=== PATIENT | male | born 1945 | race African-American/Black ===

== ENCOUNTER 2019-09-08 17:51 | Inpatient (IN) | payer OTHER ==
[~2019-09-08] VITALS: Ht 182.9 cm; Wt 100.7 kg
[2019-09-08 17:53] VITALS: BP 141/89
[2019-09-08] MEDS ORDERED: Acetaminophen 650 MG SUPP RECTAL ONE (18:15)
[2019-09-08 18:23] LABS: BASOPHILS % (AUTO) 0.8 % (0.0-2.0); HEMATOCRIT 48.1 % (42.0-52.0); HEMOGLOBIN 15.4 G/DL (14.2-18.0); LYMPHOCYTES % (AUTO) 8.6 % (20.0-45.0); MEAN CORPUSCULAR VOLUME 102 FL (80-99); MONOCYTES % (AUTO) 11.8 % (1.0-10.0); NEUTROPHILS % (AUTO) 78.8 % (45.0-75.0); PLATELET COUNT 207 K/UL (150-450); RED BLOOD COUNT 4.74 M/UL (4.70-6.10); RED CELL DISTRIBUTION WIDTH 11.8 % (11.6-14.8); WHITE BLOOD COUNT 12.3 K/UL (4.8-10.8)
[2019-09-08 18:30] LABS: ANION GAP 17 mmol/L (5-15); BLOOD UREA NITROGEN 52 mg/dL (7-18); CALCIUM 9.6 MG/DL (8.5-10.1); CARBON DIOXIDE 21 MMOL/L (21-32); CHLORIDE 109 MMOL/L (98-107); CREATININE 3.8 MG/DL (0.55-1.30); POTASSIUM 4.1 MMOL/L (3.5-5.1); SODIUM 147 MMOL/L (136-145)
[2019-09-08 18:31] LABS: INR 1.2 (0.9-1.1); PARTIAL THROMBOPLASTIN TIME 26 SEC (23-33)
[2019-09-08 18:43] LABS: ALANINE AMINOTRANSFERASE 72 U/L (12-78); ALBUMIN 4.3 G/DL (3.4-5.0); ALKALINE PHOSPHATASE 87 U/L (46-116); ASPARTATE AMINO TRANSFERASE 64 U/L (15-37); BILIRUBIN,TOTAL 1.7 MG/DL (0.2-1.0)
[2019-09-08 18:44] LABS: BILIRUBIN,DIRECT 0.3 MG/DL (0.0-0.3)
[2019-09-08 19:09] LABS: APPEARANCE,URINE VERY CLOUDY; BILIRUBIN, URINE NEGATIVE (NEGATIVE); GLUCOSE, URINE (UA) 1+ (NEGATIVE); KETONES,URINE 1+ (NEGATIVE); LEUKOCYTE ESTERASE ,URINE 3+ (NEGATIVE); NITRITE,URINE NEGATIVE (NEGATIVE); PH,URINE 5 (4.5-8.0); PROTEIN,URINE 3+ (NEGATIVE); UROBILINOGEN,URINE 1 MG/DL (0.0-1.0)
[2019-09-08 19:22] LABS: COLOR,URINE YELLOW
[2019-09-08] MEDS ORDERED: Sodium Chloride 3,300 ML IVLG ONE (19:30)
[2019-09-08] MEDS ORDERED: Heparin 5000 units/ml inj IV ONE (19:45)
[2019-09-08] MEDS ORDERED: Heparin 25,000u/D5W 500ml 500 ML IV SCH (19:45)
[2019-09-08 20:00] VITALS: BP 124/105
[2019-09-08] MEDS ORDERED: dexAMETHasone 10mg/ml Inj IV ONE (20:00)
--- NOTE | 2019-09-08 21:34 | Emergency Room Report ---
History of Present Illness General Chief Complaint: Fever Source: EMS Present Illness HPI 74-year-old male brought to ED for evaluation. Per EMS patient found altered since this morning. Febrile. Placed on oxygen. Last known patient unable to provide any additional history at this time. No signs of distress. No other aggravating relieving factors. 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: No Patient History Past Medical History: DM, HTN, CVA/TIA Pertinent Family History: none Social History: Denies: smoking, alcohol use, drug use Immunizations: UTD Reviewed Nursing Documentation: PMH: Agreed; PSxH: Agreed Nursing Documentation-PMH Past Medical History: No History, Except For Hx Hypertension: Yes Hx Diabetes: Yes Hx Cerebrovascular Accident: Yes Review of Systems All Other Systems: limited Physical Exam Vital Signs Date Time Temp Pulse Resp B/P (MAP) Pulse Ox O2 Delivery O2 Flow Rate FiO2 09/08/19 17:41 101.5 123 16 141/89 (106) 92 Room Air 09/08/19 17:53 15.0 Sp02 EP Interpretation: reviewed, normal General Appearance: no apparent distress, GCS 15, non-toxic, lethargic Head: normocephalic Eyes: bilateral eye normal inspection, bilateral eye PERRL ENT: normal ENT inspection Neck: normal inspection Respiratory: chest non-tender, lungs clear, normal breath sounds, speaking full sentences Cardiovascular #1: tachycardia Gastrointestinal: normal bowel sounds, non tender, soft, non-distended, no guarding, no rebound Rectal: deferred Genitourinary: no CVA tenderness Musculoskeletal: normal inspection Neurologic: other - AMS Psychiatric: other - AMS Skin: other - see nrusing notes Lymphatic: normal inspection Procedures Critical Care Time Critical Care Time i. I feel this is a highly complex case requiring extensive working including EKG/Rhythm strip, Xray/CT/US, Blood/urine lab work, repeat exams while in ED, and administration of strong opiates/narcotics for pain control, admission to hospital or close patient follow up. Total time: 60 min bedside evaluation and treatment excludes procedures (EKG). Reason for critical care: ALOC, sepsis, dehydration, elevated D-dimer Possible complications: hypotension, hypertension, DC, shock, arrhythmias, metabolic acidosis, end organ damage, respiratory failure. Interventions: Labs, EKG, chest x-ray, rectal Tylenol, IV fluids, Decadron, heparin, broad-spectrum antibiotics Course: Patient presenting with fever, altered. Urine positive for UTI. BUN/ creatinine elevated. Lactic 2.5. Sodium 147. D-dimer markedly elevated. Concern for COVID. COVID swab sent. Given Decadron. Given 30 cc/kg fluid bolus. Given heparin. Given broad-spectrum antibiotics Consultations: nursing staff, EMS, family Performed by: Dr Pagan Tolerated well condition = serious j. because of unstable vital signs this patient had a condition that could potentially threaten life or limb. I feel this is a critical patient who required my full attention while patient was considered critical. Total Critical Care Time excluding procedures was greater than 60 minutes Medical Decision Making Diagnostic Impression: Primary Impression: Fever Qualified Codes: R50.9 - Fever, unspecified Additional Impressions: Dehydration Renal failure Qualified Codes: N17.9 - Acute kidney failure, unspecified Sepsis Qualified Codes: A41.9 - Sepsis, unspecified organism UTI (urinary tract infection) Qualified Codes: N39.0 - Urinary tract infection, site not specified Suspected 2019 novel coronavirus infection ER Course Hospital Course 74 yo M presents with increased lethargy, fever Differential diagnoses include: Pneumonia, UTI, sepsis, dehydration, DC/ unstable angina Clinical course Patient placed on stretcher. in isolation. i wore full PPE. On residential monitor with tachycardia. After initial history and physical, I ordered labs, IV fluids , EKG, chest x-ray, blood cultures, UA. given rectal tylenol Labs - Na 147, BUN/Cr markedly elevated, noted leukocytosis, ESR elevated, d- dimer elevated, lactic 2.5, UA grossly positive for UTI CXR - no acute process EKG - sinus tachycardia no acute ischemic changes interpreted by me Abx given. 30 cc/kg fluid bolus. Inflammatory markers elevated concerning for COVID. COVID swab sent. Given Decadron. Given heparin. Case discussed with Dr Warner and they agreed to admit patient to their service for further care and support I feel this is a highly complex case requiring extensive working including EKG/ Rhythm strip, Xray/CT/US, Blood/urine lab work, repeat exams while in ED, and administration of strong opiates/narcotics for pain control, admission to hospital or close patient follow up. Diagnosis -fever, dehydration, renal failure, sepsis, UTI, suspected COVID infection Patient admitted to telemetry in serious condition Labs Test 09/08/19 17:55 09/08/19 18:35 White Blood Count 12.3 K/UL (4.8-10.8) Red Blood Count 4.74 M/UL (4.70-6.10) Hemoglobin 15.4 G/DL (14.2-18.0) Hematocrit 48.1 % (42.0-52.0) Mean Corpuscular Volume 102 FL (80-99) Mean Corpuscular Hemoglobin 32.5 PG (27.0-31.0) Mean Corpuscular Hemoglobin Concent 32.0 G/DL (32.0-36.0) Red Cell Distribution Width 11.8 % (11.6-14.8) Platelet Count 207 K/UL (150-450) Mean Platelet Volume 7.0 FL (6.5-10.1) Neutrophils (%) (Auto) 78.8 % (45.0-75.0) Lymphocytes (%) (Auto) 8.6 % (20.0-45.0) Monocytes (%) (Auto) 11.8 % (1.0-10.0) Eosinophils (%) (Auto) 0.0 % (0.0-3.0) Basophils (%) (Auto) 0.8 % (0.0-2.0) Erythrocyte Sedimentation Rate 75 MM/HR (0-20) Prothrombin Time 13.5 SEC (9.30-11.50) Prothromb Time International Ratio 1.2 (0.9-1.1) Activated Partial Thromboplast Time 26 SEC (23-33) D-Dimer > 35.20 mg/L FEU Sodium Level 147 MMOL/L (136-145) Potassium Level 4.1 MMOL/L (3.5-5.1) Chloride Level 109 MMOL/L (98-107) Carbon Dioxide Level 21 MMOL/L (21-32) Anion Gap 17 mmol/L (5-15) Blood Urea Nitrogen 52 mg/dL (7-18) Creatinine 3.8 MG/DL (0.55-1.30) Estimat Glomerular Filtration Rate 15.6 mL/min (>60) Glucose Level 310 MG/DL (74-106) Lactic Acid Level 2.50 mmol/L (0.4-2.0) Calcium Level 9.6 MG/DL (8.5-10.1) Total Bilirubin 1.7 MG/DL (0.2-1.0) Direct Bilirubin 0.3 MG/DL (0.0-0.3) Aspartate Amino Transf (AST/SGOT) 64 U/L (15-37) Alanine Aminotransferase (ALT/SGPT) 72 U/L (12-78) Alkaline Phosphatase 87 U/L (46-116) C-Reactive Protein, Quantitative 0.9 mg/dL (0.00-0.90) Pro-B-Type Natriuretic Peptide 482 pg/mL (0-125) Total Protein 8.8 G/DL (6.4-8.2) Albumin 4.3 G/DL (3.4-5.0) Globulin 4.5 g/dL Albumin/Globulin Ratio 1.0 (1.0-2.7) Urine Color Yellow Urine Appearance Very cloudy Urine pH 5 (4.5-8.0) Urine Specific [place] 1.025 (1.005-1.035) Urine Protein 3+ (NEGATIVE) Urine Glucose (UA) 1+ (NEGATIVE) Urine Ketones 1+ (NEGATIVE) Urine Blood 5+ (NEGATIVE) Urine Nitrite Negative (NEGATIVE) Urine Bilirubin Negative (NEGATIVE) Urine Urobilinogen 1 MG/DL (0.0-1.0) Urine Leukocyte Esterase 3+ (NEGATIVE) Urine RBC 5-10 /HPF (0 - 0) Urine WBC Tntc /HPF (0 - 0) Urine Squamous Epithelial Cells Occasional /LPF Urine Bacteria Many /HPF (NONE) EKG Diagnostic Results Rate: tachycardiac Rhythm: NSR ST Segments: no acute changes ASA given to the pt in ED: No Rhythm Strip Diag. Results EP Interpretation: yes Rhythm: NSR, no PVC's, no ectopy Chest X-Ray Diagnostic Results Chest X-Ray Diagnostic Results : Chest X-Ray Ordered: Yes # of Views/Limited/Complete: 1 View Indication: Other EP Interpretation: Yes Interpretation: no consolidation, no effusion, no pneumothorax, no acute cardiopulmonary disease Impression: No acute disease Electronically Signed by: Electronically signed by Josh Pagan MD Last Vital Signs Date Time Temp Pulse Resp B/P (MAP) Pulse Ox O2 Delivery O2 Flow Rate FiO2 09/08/19 17:53 123 16 Room Air 09/08/19 17:53 101.5 141/89 99 15.0 Status: improved Disposition: ADMITTED INPATIENT Condition: Serious Scripts Unable to Obtain Active Prescriptions or Reported Meds Referrals: NOT CHOSEN IPA/,REFERRING (PCP) Josh Pagan MD Sep 08, 2019 21:34
[2019-09-08 21:45] VITALS: BP 120/61
[2019-09-09] VITALS: BP 127/77
[2019-09-09] MEDS: cefTRIAXone 1 GM in D5W 55 ML IVPB SCH ×2 (00:31→23:03)
[2019-09-09 04:00] VITALS: BP 138/75
[2019-09-09 07:12] LABS: HEMATOCRIT 44.7 % (42.0-52.0); HEMOGLOBIN 14.5 G/DL (14.2-18.0); MEAN CORPUSCULAR VOLUME 102 FL (80-99); PLATELET COUNT 183 K/UL (150-450); RED BLOOD COUNT 4.38 M/UL (4.70-6.10); RED CELL DISTRIBUTION WIDTH 11.1 % (11.6-14.8)
[2019-09-09 07:29] LABS: ALANINE AMINOTRANSFERASE 59 U/L (12-78); ALBUMIN 3.1 G/DL (3.4-5.0); ALBUMIN/GLOBULIN RATIO 0.7 (1.0-2.7); ALKALINE PHOSPHATASE 73 U/L (46-116); ANION GAP 14 mmol/L (5-15); ASPARTATE AMINO TRANSFERASE 56 U/L (15-37); BILIRUBIN,TOTAL 1.5 MG/DL (0.2-1.0); BLOOD UREA NITROGEN 43 mg/dL (7-18); CALCIUM 8.6 MG/DL (8.5-10.1); CARBON DIOXIDE 19 MMOL/L (21-32); CHLORIDE 110 MMOL/L (98-107); CREATININE 2.8 MG/DL (0.55-1.30); POTASSIUM 4.8 MMOL/L (3.5-5.1); SODIUM 143 MMOL/L (136-145)
--- NOTE | 2019-09-09 07:58 | Consultation ---
History of Present Illness General Chief Complaint: Fever Present Illness Allergies: Coded Allergies: No Known Allergies (Unverified , 09/08/19) Medication History Unable to Obtain Active Prescriptions or Reported Meds Patient History Healthcare decision maker Resuscitation status Advanced Directive on File Physical Exam Last 24 Hour Vital Signs Date Time Temp Pulse Resp B/P (MAP) Pulse Ox O2 Delivery O2 Flow Rate FiO2 09/09/19 04:00 83 09/09/19 04:00 97.7 75 20 138/75 (96) 98 09/09/19 01:58 Nasal Cannula 3.0 09/09/19 00:00 97.8 89 18 127/77 (94) 98 09/09/19 00:00 104 09/09/19 00:00 104 09/08/19 22:38 98.0 106 20 120/61 100 Nasal Cannula 3.0 09/08/19 21:45 98.0 111 20 120/61 100 Nasal Cannula 3.0 09/08/19 20:00 99.1 118 20 124/105 100 Non-Rebreather 10.0 09/08/19 17:53 123 16 Room Air 09/08/19 17:53 101.5 123 16 141/89 99 Non-Rebreather 15.0 09/08/19 17:41 101.5 123 16 141/89 (106) 92 Room Air Intake and Output 09/08/19 09/09/19 19:00 07:00 Output Total 0 ml 900 ml Balance 0 ml -900 ml Output Urine Total 0 ml 900 ml Laboratory Tests Test 09/08/19 17:55 09/08/19 18:35 09/08/19 21:50 09/09/19 06:24 White Blood Count 12.3 K/UL (4.8-10.8) H 15.0 K/UL (4.8-10.8) H Red Blood Count 4.74 M/UL (4.70-6.10) 4.38 M/UL (4.70-6.10) L Hemoglobin 15.4 G/DL (14.2-18.0) 14.5 G/DL (14.2-18.0) Hematocrit 48.1 % (42.0-52.0) 44.7 % (42.0-52.0) Mean Corpuscular Volume 102 FL (80-99) H 102 FL (80-99) H Mean Corpuscular Hemoglobin 32.5 PG (27.0-31.0) H 33.1 PG (27.0-31.0) H Mean Corpuscular Hemoglobin Concent 32.0 G/DL (32.0-36.0) 32.4 G/DL (32.0-36.0) Red Cell Distribution Width 11.8 % (11.6-14.8) 11.1 % (11.6-14.8) L Platelet Count 207 K/UL (150-450) 183 K/UL (150-450) Mean Platelet Volume 7.0 FL (6.5-10.1) 6.1 FL (6.5-10.1) L Neutrophils (%) (Auto) 78.8 % (45.0-75.0) H % (45.0-75.0) Lymphocytes (%) (Auto) 8.6 % (20.0-45.0) L % (20.0-45.0) Monocytes (%) (Auto) 11.8 % (1.0-10.0) H % (1.0-10.0) Eosinophils (%) (Auto) 0.0 % (0.0-3.0) % (0.0-3.0) Basophils (%) (Auto) 0.8 % (0.0-2.0) % (0.0-2.0) Erythrocyte Sedimentation Rate 75 MM/HR (0-20) H Prothrombin Time 13.5 SEC (9.30-11.50) H Prothromb Time International Ratio 1.2 (0.9-1.1) H Activated Partial Thromboplast Time 26 SEC (23-33) D-Dimer > 35.20 mg/L FEU Sodium Level 147 MMOL/L (136-145) H 143 MMOL/L (136-145) Potassium Level 4.1 MMOL/L (3.5-5.1) 4.8 MMOL/L (3.5-5.1) Chloride Level 109 MMOL/L (98-107) H 110 MMOL/L (98-107) H Carbon Dioxide Level 21 MMOL/L (21-32) 19 MMOL/L (21-32) L Anion Gap 17 mmol/L (5-15) H 14 mmol/L (5-15) Blood Urea Nitrogen 52 mg/dL (7-18) H 43 mg/dL (7-18) H Creatinine 3.8 MG/DL (0.55-1.30) H 2.8 MG/DL (0.55-1.30) H Estimat Glomerular Filtration Rate 15.6 mL/min (>60) 26.8 mL/min (>60) Glucose Level 310 MG/DL (74-106) H 326 MG/DL (74-106) H Lactic Acid Level 2.50 mmol/L (0.4-2.0) H 1.70 mmol/L (0.66-2.22) Calcium Level 9.6 MG/DL (8.5-10.1) 8.6 MG/DL (8.5-10.1) Total Bilirubin 1.7 MG/DL (0.2-1.0) H 1.5 MG/DL (0.2-1.0) H Direct Bilirubin 0.3 MG/DL (0.0-0.3) Pending Aspartate Amino Transf (AST/SGOT) 64 U/L (15-37) H 56 U/L (15-37) H Alanine Aminotransferase (ALT/SGPT) 72 U/L (12-78) 59 U/L (12-78) Alkaline Phosphatase 87 U/L (46-116) 73 U/L (46-116) C-Reactive Protein, Quantitative 0.9 mg/dL (0.00-0.90) Pending Pro-B-Type Natriuretic Peptide 482 pg/mL (0-125) H Pending Total Protein 8.8 G/DL (6.4-8.2) H 7.4 G/DL (6.4-8.2) Albumin 4.3 G/DL (3.4-5.0) 3.1 G/DL (3.4-5.0) L Globulin 4.5 g/dL 4.3 g/dL Albumin/Globulin Ratio 1.0 (1.0-2.7) 0.7 (1.0-2.7) L Urine Color Yellow Urine Appearance Very cloudy Urine pH 5 (4.5-8.0) Urine Specific [place] 1.025 (1.005-1.035) Urine Protein 3+ (NEGATIVE) H Urine Glucose (UA) 1+ (NEGATIVE) H Urine Ketones 1+ (NEGATIVE) H Urine Blood 5+ (NEGATIVE) H Urine Nitrite Negative (NEGATIVE) Urine Bilirubin Negative (NEGATIVE) Urine Urobilinogen 1 MG/DL (0.0-1.0) H Urine Leukocyte Esterase 3+ (NEGATIVE) H Urine RBC 5-10 /HPF (0 - 0) H Urine WBC Tntc /HPF (0 - 0) H Urine Squamous Epithelial Cells Occasional /LPF Urine Bacteria Many /HPF (NONE) H Neutrophils % (Manual) Pending Lymphocytes % (Manual) Pending Platelet Estimate Pending Platelet Morphology Pending Hemoglobin A1c Pending Uric Acid Pending Phosphorus Level Pending Magnesium Level Pending Gamma Glutamyl Transpeptidase Pending Total Creatine Kinase Pending Thyroid Stimulating Hormone (TSH) Pending Height (Feet): 6 Height (Inches): 0.00 Weight (Pounds): 210 Medications Current Medications Medications (Trade) Dose Ordered Sig/Karyna Route PRN Reason Start Time Stop Time Status Last Admin Dose Admin Acetaminophen (Tylenol) 500 mg Q4H PRN ORAL Mild Pain (Pain Scale 1-3) 09/09/19 02:00 10/09/19 01:59 Ceftriaxone Sodium 1 gm/ Dextrose 55 ml @ 110 mls/hr Q24H IVPB 09/08/19 23:00 09/15/19 22:59 09/09/19 00:31 Enoxaparin Sodium (Lovenox) 100 mg Q24H SUBQ 09/09/19 09:00 12/08/19 08:59 Assessment/Plan Assessment/Plan: Hematology Consultation REQ : Julia Yuan RFC: Leukocytosis eval DOS 09/09/2019 HPI 74-year-old male brought to ED for evaluation. Per EMS patient found altered since this morning. Febrile. Placed on oxygen. Last known patient unable to provide any additional history at this time. No signs of distress. No other aggravating relieving factors. No other associated symptoms. Wbc 12-->15, on abx now, ctx also started on levonex given that is with ese ddimer. 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: No Patient History Past Medical History: DM, HTN, CVA/TIA Pertinent Family History: none Social History: Denies: smoking, alcohol use, drug use Immunizations: UTD Reviewed Nursing Documentation: PMH: Agreed; PSxH: Agreed Nursing Documentation-PMH Past Medical History: No History, Except For Hx Hypertension: Yes Hx Diabetes: Yes Hx Cerebrovascular Accident: Yes Review of Systems All Other Systems: limited Physical Exam General: no apparent distress, GCS 15, non-toxic, lethargic HEENT: normal ENT inspection Neck: normal inspection Respiratory: chest non-tender, lungs clear, normal breath sounds, speaking full sentences Cardiovascular: tachycardia Gastrointestinal: normal bowel sounds, non tender Genitourinary: no CVA tenderness Musculoskeletal: normal inspection Neurologic: other - AMS Psychiatric: other - AMS Skin: other - see nrusing notes Lymphatic: normal inspection Labs reviewed Imaging: noted Assessment and Recs # Elevated didmer in the setting of ALOC, sepsis, r./o covid19 --> r/o underlying infection, imaging reviewed --> has been started initially on heparin gtt, now on lovenox sq --> duplex lower extremity ordered, wilian Stout --> pulm eval prn basis # Leukocytosis r/o underlying infection --> may also be elevated due to been given steriods # Dehydration --> goal of euvolemia --> ivfs started # UTI, Urine positive for UTI -> abx as per id # BUN/creatinine elevated. Lactic 2.5. # Hypernatremia with a Na 147, --> ivfs started Appreciate consultation and Lewis Blackwell RN, MD Sep 09, 2019 07:58
[2019-09-09 08:00] VITALS: BP 135/71
[2019-09-09 08:31] LABS: BILIRUBIN,DIRECT 0.2 MG/DL (0.0-0.3)
[2019-09-09] MEDS: Enoxaparin 100mg Inj SUBQ SCH (08:57)
--- NOTE | 2019-09-09 09:49 | Consultation ---
Consult Note Consult Note I am asked to evaluate the patient at the request of Dr. Warner for renal failure. Patient seen in room 217. Interviewed and examined. Unable to provide a meaningful history. Emergency room note: Chief Complaint: Fever Source: EMS 74-year-old male brought to ED for evaluation. Per EMS patient found altered since this morning. Febrile. Placed on oxygen. Last known patient unable to provide any additional history at this time. No signs of distress. No other aggravating relieving factors. No other associated symptoms Allergies: UNABLE TO ASSESS (Unverified , 09/08/19) no family avail COVID-19 Screening Contact w/high risk pt: No Experienced COVID-19 symptoms?: Yes COVID-19 Testing performed LIFE UNDERWRITER: No Past Medical History: DM, HTN, CVA/TIA Past Medical History: No History, Except For Hx Hypertension: Yes Hx Diabetes: Yes Hx Cerebrovascular Accident: Yes PHYSICAL EXAMINATION: VITAL SIGNS: Temperature is 97.7, pulse 74, blood pressure 135/75. GENERAL APPEARANCE: No acute distress, well developed. HEAD AND NECK: [place] conjunctiva. HEART: Normal rate. LUNGS: Clear. ABDOMEN: Soft. EXTREMITIES: No edema. GENITOURINARY: Has Carmen catheter. NEUROLOGIC: Awake, alert, oriented. Has left hemiparesis. Seems to have some memory problem and searching for words. He is slow to response. Assessment/Plan This 74-year-old male presented to emergency room with fever, leukocytosis, evidence of UTI/sepsis He has leukocytosis and increased d-dimer, suspected 2019 novel coronavirus infection Renal impression: Acute on chronic kidney disease Superimposed dehydration Underlying diabetic nephropathy Diabetes mellitus [id number] Slow IV hydration Monitor renal parameters Patient has a Carmen catheter Avoid nephrotoxic's N.p.o. until cleared with speech therapist Keep the blood pressure and blood sugar in check Per orders Discussed with Wild Mchugh MD Sep 09, 2019 09:49
[2019-09-09 09:53] LABS: CREATINE KINASE 628 U/L (26-308); GAMMA GLUTAMYL TRANSPEPTIDASE 20 U/L (5-85); PHOSPHORUS 1.6 MG/DL (2.5-4.9)
[2019-09-09] MEDS ORDERED: HydrALAZINE 25mg tab ORAL PRN (10:00)
[2019-09-09] MEDS ORDERED: Tamsulosin 0.4mg cap ORAL SCH (10:00)
[2019-09-09 12:00] VITALS: BP 130/64
[2019-09-09] MEDS: Aspirin Baby 81mg ORAL SCH (12:18)
[2019-09-09] MEDS: Docusate 100mg cap ORAL SCH ×2 (12:18→18:12)
--- NOTE | 2019-09-09 14:36 | Cardiac Electrophysiology PN ---
Subjective Subjective [id number] Objective Last 24 Hour Vital Signs Date Time Temp Pulse Resp B/P (MAP) Pulse Ox O2 Delivery O2 Flow Rate FiO2 09/09/19 08:00 97.7 74 18 135/71 (92) 100 09/09/19 04:00 83 09/09/19 04:00 97.7 75 20 138/75 (96) 98 09/09/19 01:58 Nasal Cannula 3.0 09/09/19 00:00 97.8 89 18 127/77 (94) 98 09/09/19 00:00 104 09/09/19 00:00 104 09/08/19 22:38 98.0 106 20 120/61 100 Nasal Cannula 3.0 09/08/19 21:45 98.0 111 20 120/61 100 Nasal Cannula 3.0 09/08/19 20:00 99.1 118 20 124/105 100 Non-Rebreather 10.0 09/08/19 17:53 123 16 Room Air 09/08/19 17:53 101.5 123 16 141/89 99 Non-Rebreather 15.0 09/08/19 17:41 101.5 123 16 141/89 (106) 92 Room Air Intake and Output 09/08/19 09/09/19 19:00 07:00 Output Total 0 ml 900 ml Balance 0 ml -900 ml Output Urine Total 0 ml 900 ml Laboratory Tests Test 09/08/19 17:55 09/08/19 18:35 09/08/19 21:50 09/09/19 06:24 White Blood Count 12.3 K/UL (4.8-10.8) H 15.0 K/UL (4.8-10.8) H Red Blood Count 4.74 M/UL (4.70-6.10) 4.38 M/UL (4.70-6.10) L Hemoglobin 15.4 G/DL (14.2-18.0) 14.5 G/DL (14.2-18.0) Hematocrit 48.1 % (42.0-52.0) 44.7 % (42.0-52.0) Mean Corpuscular Volume 102 FL (80-99) H 102 FL (80-99) H Mean Corpuscular Hemoglobin 32.5 PG (27.0-31.0) H 33.1 PG (27.0-31.0) H Mean Corpuscular Hemoglobin Concent 32.0 G/DL (32.0-36.0) 32.4 G/DL (32.0-36.0) Red Cell Distribution Width 11.8 % (11.6-14.8) 11.1 % (11.6-14.8) L Platelet Count 207 K/UL (150-450) 183 K/UL (150-450) Mean Platelet Volume 7.0 FL (6.5-10.1) 6.1 FL (6.5-10.1) L Neutrophils (%) (Auto) 78.8 % (45.0-75.0) H % (45.0-75.0) Lymphocytes (%) (Auto) 8.6 % (20.0-45.0) L % (20.0-45.0) Monocytes (%) (Auto) 11.8 % (1.0-10.0) H % (1.0-10.0) Eosinophils (%) (Auto) 0.0 % (0.0-3.0) % (0.0-3.0) Basophils (%) (Auto) 0.8 % (0.0-2.0) % (0.0-2.0) Erythrocyte Sedimentation Rate 75 MM/HR (0-20) H Prothrombin Time 13.5 SEC (9.30-11.50) H Prothromb Time International Ratio 1.2 (0.9-1.1) H Activated Partial Thromboplast Time 26 SEC (23-33) D-Dimer > 35.20 mg/L FEU Sodium Level 147 MMOL/L (136-145) H 143 MMOL/L (136-145) Potassium Level 4.1 MMOL/L (3.5-5.1) 4.8 MMOL/L (3.5-5.1) Chloride Level 109 MMOL/L (98-107) H 110 MMOL/L (98-107) H Carbon Dioxide Level 21 MMOL/L (21-32) 19 MMOL/L (21-32) L Anion Gap 17 mmol/L (5-15) H 14 mmol/L (5-15) Blood Urea Nitrogen 52 mg/dL (7-18) H 43 mg/dL (7-18) H Creatinine 3.8 MG/DL (0.55-1.30) H 2.8 MG/DL (0.55-1.30) H Estimat Glomerular Filtration Rate 15.6 mL/min (>60) 26.8 mL/min (>60) Glucose Level 310 MG/DL (74-106) H 326 MG/DL (74-106) H Lactic Acid Level 2.50 mmol/L (0.4-2.0) H 1.70 mmol/L (0.66-2.22) Calcium Level 9.6 MG/DL (8.5-10.1) 8.6 MG/DL (8.5-10.1) Total Bilirubin 1.7 MG/DL (0.2-1.0) H 1.5 MG/DL (0.2-1.0) H Direct Bilirubin 0.3 MG/DL (0.0-0.3) 0.2 MG/DL (0.0-0.3) Aspartate Amino Transf (AST/SGOT) 64 U/L (15-37) H 56 U/L (15-37) H Alanine Aminotransferase (ALT/SGPT) 72 U/L (12-78) 59 U/L (12-78) Alkaline Phosphatase 87 U/L (46-116) 73 U/L (46-116) C-Reactive Protein, Quantitative 0.9 mg/dL (0.00-0.90) Pro-B-Type Natriuretic Peptide 482 pg/mL (0-125) H Total Protein 8.8 G/DL (6.4-8.2) H 7.4 G/DL (6.4-8.2) Albumin 4.3 G/DL (3.4-5.0) 3.1 G/DL (3.4-5.0) L Globulin 4.5 g/dL 4.3 g/dL Albumin/Globulin Ratio 1.0 (1.0-2.7) 0.7 (1.0-2.7) L Urine Color Yellow Urine Appearance Very cloudy Urine pH 5 (4.5-8.0) Urine Specific [place] 1.025 (1.005-1.035) Urine Protein 3+ (NEGATIVE) H Urine Glucose (UA) 1+ (NEGATIVE) H Urine Ketones 1+ (NEGATIVE) H Urine Blood 5+ (NEGATIVE) H Urine Nitrite Negative (NEGATIVE) Urine Bilirubin Negative (NEGATIVE) Urine Urobilinogen 1 MG/DL (0.0-1.0) H Urine Leukocyte Esterase 3+ (NEGATIVE) H Urine RBC 5-10 /HPF (0 - 0) H Urine WBC Tntc /HPF (0 - 0) H Urine Squamous Epithelial Cells Occasional /LPF Urine Bacteria Many /HPF (NONE) H Differential Total Cells Counted 100 Neutrophils % (Manual) 85 % (45-75) H Lymphocytes % (Manual) 14 % (20-45) L Monocytes % (Manual) 1 % (1-10) Eosinophils % (Manual) 0 % (0-3) Basophils % (Manual) 0 % (0-2) Band Neutrophils 0 % (0-8) Platelet Estimate Adequate Platelet Morphology Normal Macrocytosis 1+ Hemoglobin A1c 7.5 % (4.3-6.0) H Total Creatine Kinase Pending Test 09/09/19 08:50 09/09/19 10:37 Uric Acid 9.2 MG/DL (2.6-7.2) H Phosphorus Level 1.6 MG/DL (2.5-4.9) L Magnesium Level 2.0 MG/DL (1.8-2.4) Gamma Glutamyl Transpeptidase 20 U/L (5-85) Total Creatine Kinase 628 U/L (26-308) H C-Reactive Protein, Quantitative 1.0 mg/dL (0.00-0.90) H Pro-B-Type Natriuretic Peptide 1370 pg/mL (0-125) H Thyroid Stimulating Hormone (TSH) 0.379 uiU/mL (0.358-3.740) Urine Random Sodium 46 mmol/L (20-110) Microbiology Date/Time Source Procedure Growth Status 09/08/19 18:35 Urine,Clean Catch Urine Culture - Preliminary Gram Negative Johnathan Resulted Rick Torres MD Sep 09, 2019 14:36
--- NOTE | 2019-09-09 14:36 | Diagnostic Imaging Report ---
Indication: Shortness of breath Technique: One view of the chest Comparison: none Findings: There is equivocal mild interstitial prominence at the right lung base. There is some atelectasis at the left lung base. The remainder of the lungs and pleural spaces are clear. The heart size is upper limits of normal. Impression: Right basilar equivocal mild interstitial prominence, could reflect early infiltrates if real. Correlate with clinical findings
[2019-09-09 16:00] VITALS: BP 128/62
--- NOTE | 2019-09-09 17:30 | Consultation ---
DATE OF CONSULTATION: 09/09/2019 PULMONARY CONSULTATION CONSULTING PHYSICIAN: Ketan Duran MD HISTORY OF PRESENT ILLNESS: This is a 74-year-old male who was found to be altered since yesterday morning. He was noted to be febrile. He was admitted to the hospital. The patient is unable to provide any further history. PAST HISTORY: As reviewed in chart, notable for diabetes mellitus, hypertension, previous CVA. ALLERGIES: Not obtainable. HOME MEDICATIONS: Reviewed and reconciled in chart. PHYSICAL EXAMINATION: GENERAL: Reveals a 74-year-old male. HEENT: Unremarkable. LUNGS: Decreased breath sounds bilaterally. HEART: Normal heart sounds. ABDOMEN: Soft. EXTREMITIES: No edema. VITAL SIGNS: Blood pressure is 130/70, heart rate 74, respiratory rate 20. He is afebrile. O2 saturation 96% on 3 liters of oxygen. LABORATORY DATA: Lab testing shows white count 15,000, hemoglobin of 14. Chemistry is notable for creatinine 2.8. . Lactic acid 1.7. Coags . Sodium 135. Urinalysis shows multiple pus cells. IMPRESSION: 1. Altered mental status. 2. UTI. 3. Diabetes mellitus. 4. Hypertension. 5. Renal failure. 6. Elevated D-dimer. DISCUSSION: His inflammatory markers are abnormal. Admitted. Presented with COVID-19. Await COVID-19 PCR. The patient needs broad-spectrum antibiotics. Defer to ID. He needs IV fluid hydration. He may benefit from anticoagulation; however, we will await the results of COVID-19 testing before implementing anticoagulation. We will follow carefully. Ketan Duran M.D. DR: TANYA JOB#: [id number] CC:
--- NOTE | 2019-09-09 18:45 | Consultation ---
DATE OF CONSULTATION: 09/09/2019 CARDIOLOGY CONSULTATION REFERRING PHYSICIAN: Julia Warner M.D. REASON FOR CONSULTATION: Abnormal EKG and hypertension. HISTORY OF PRESENT ILLNESS: Patient is a 74-year-old gentleman with history of hypertension, diabetes, history of prior CVA, who was brought to the emergency room as the patient was found altered since the morning. Patient was also febrile and was placed on oxygen. The patient did not have any distress. Patient was admitted and being ruled out COVID. Cardiology consultation was obtained. His EKG showed inferolateral ischemia as well as first-degree AV block. REVIEW OF SYSTEMS: Negative other than what has been mentioned in history of present illness. PAST MEDICAL HISTORY: As mentioned above. FAMILY HISTORY: Noncontributory. SOCIAL HISTORY: Does not smoke or drink alcohol. PHYSICAL EXAMINATION: VITAL SIGNS: Blood pressure of 135/71, pulse 74, respirations 18, temperature 97.7. NECK: No JVD. LUNGS: Clear. CARDIOVASCULAR: Regular S1 and S2 with no gallop or murmur. ABDOMEN: Soft. EXTREMITIES: No pitting edema. LABORATORY DATA: Labs showed white count of 15, hemoglobin of 14, hematocrit of 44, and platelet count of 183. Sodium is 142, potassium 4.8, BUN of 43, creatinine of 2.8, and glucose of 326. His INR is 1.2. D-dimer is more than 35. EKG shows sinus rhythm with inferolateral ischemia. ASSESSMENT AND PLAN: 1. Hypertension. Patient is on p.r.n. hydralazine at this point. We will see the frequency the patient would need. May need to put him on standing dose of antihypertensive. 2. Inferolateral ischemia. Denies any chest pain. Repeat EKG and get troponin and echocardiogram for further evaluation. Patient has first-degree AV block. 3. Shortness of breath, patient being ruled out for COVID and already started on ceftriaxone. 4. Elevated D-dimer. Patient may need lower extremity duplex for further evaluation and possible V/Q scan after ruling out COVID. Thank you very much for allowing me to participate in the care of this patient. Please do not hesitate to contact me for any questions regarding my evaluation. Rick Torres M.D. DR: BHANU JOB#: [id number] CC:
--- NOTE | 2019-09-09 19:15 | Consultation ---
DATE OF CONSULTATION: 09/09/2019 INFECTIOUS DISEASES CONSULTATION CONSULTING PHYSICIAN: Nacho Angulo MD PRIMARY ATTENDING PHYSICIAN: Julia Warner MD REASON FOR CONSULTATION: Sepsis and UTI. HISTORY OF PRESENT ILLNESS: This is a 74-year-old male admitted last night from home with altered mental status. The patient was found to have fever of 101.5 in the ER, tachycardic with heart rate of 123 and had leukocytosis of 12.3. PAST MEDICAL HISTORY: Significant for diabetes mellitus, hypertension, history of CVA, and left hemiparesis. ALLERGIES: No known drug allergies. MEDICATIONS: Getting Protonix, Colace, aspirin, hydralazine, enoxaparin, ceftriaxone, get a dose of Levaquin and dexamethasone in the ER. SOCIAL HISTORY: Denies alcohol, drug abuse, or smoking. He is single, lives alone, but has caregiver two times per week. REVIEW OF SYSTEMS: No fever. No chills . He has hiccups. No coughing. Has discomfort with Carmen catheter that was put in after admission. Has difficulty walking and walks with walker. Has weakness in the left side of the body. PHYSICAL EXAMINATION: VITAL SIGNS: Temperature is 97.7, pulse 74, blood pressure 135/75. GENERAL APPEARANCE: No acute distress, well developed. HEAD AND NECK: [place] conjunctiva. HEART: Normal rate. LUNGS: Clear. ABDOMEN: Soft. EXTREMITIES: No edema. GENITOURINARY: Has Carmen catheter. NEUROLOGIC: Awake, alert, oriented. Has left hemiparesis. Seems to have some memory problem and searching for words. He is slow to response. LABORATORY AND DIAGNOSTIC DATA: WBC today is 15, hemoglobin 14.5, hematocrit 44.2, and platelets is 183. Sodium 143, potassium 4.8, chloride 110, bicarb 19, BUN 43, creatinine 2.8, glucose is 326. Hemoglobin A1c is 7.5. UA showed wbc's too numerous to count, rbc's 5 to 10, nitrite negative, blood 5+, ketone 1+. Urine culture growing gram-negative rods. IMPRESSION: Sepsis with fever, leukocytosis, tachycardia, UTI with gram-negative rods. We will try to rule out COVID-19, has acute renal failure, has diabetes with hyperglycemia, has hypertension, history of CVA and left hemiparesis. RECOMMENDATION: Continue with ceftriaxone. We will follow up the cultures. We will follow COVID-19 tests. At the end of my exam, I thank Dr. Warner, for involving me in the care of this patient. Nacho Angulo M.D. DR: Phyllis JOB#: [id number] CC: JOHN
[2019-09-09 20:00] VITALS: BP 135/79
[2019-09-09] MEDS: NovoLOG Insulin Flexpen SUBQ SCH (21:17)
[2019-09-10] VITALS: BP 122/68
--- NOTE | 2019-09-10 00:29 | History and Physical Report ---
DATE OF ADMISSION: 09/08/2019 HISTORY OF PRESENT ILLNESS: The patient came in with dehydration, UTI. Chest x-ray showed haziness in the right lower lung base, came with fever and hypoxia, saturation improved with oxygen. The patient also had severely elevated D-dimer and also acute renal failure and the patient has diabetes. The patient came in was placed on oxygen for hypoxia. The patient was unable to give more history. No shortness of breath. Occasional cough. No nausea, vomiting, or diarrhea. No orthopnea. PAST MEDICAL HISTORY: Significant for hypertension, diabetes, CVA, and hypertension. PAST SURGICAL HISTORY: None. ALLERGIES: No known allergies. MEDICATIONS: Cannot tell me the name of the medications. FAMILY HISTORY: Noncontributory. SOCIAL HISTORY: Denies history of smoking, alcohol, or illicit drugs. REVIEW OF SYSTEMS: HEENT: Denies headaches. RESPIRATORY: Denies shortness of breath. Does have cough. CARDIOVASCULAR: Denies chest pain. GASTROINTESTINAL: Denies nausea, vomiting, or diarrhea. EXTREMITIES: Denies pain. NEUROLOGIC: Denies change in speech pattern. PHYSICAL EXAMINATION: VITAL SIGNS: Temperature 97.9, pulse 73, blood pressure 130/65. HEENT: PERRLA. NECK: Supple. CHEST: Clear to auscultation. CARDIOVASCULAR: Regular rate and rhythm. No murmurs or extra sounds. GASTROINTESTINAL: Soft, nontender, nondistended. No organomegaly. EXTREMITIES: 1+ edema. He is able to move his extremities. LABORATORY DATA: WBC of 12.3, hemoglobin of 15.4, and platelets of 207. Sodium 142, potassium 4.8, BUN of 43, creatinine of 2.8, and glucose of 326. ASSESSMENT AND PLAN: Acute renal failure, elevated sugar, NIDDM, mild acidosis, and leukocytosis. I have asked Dr. Nacho Angulo, Dr. Werner Barth, Dr. Torres, Dr. Kraft, Dr. Lewis Bourne, Dr. Ketan Duran to see the patient and help with the management of the above-mentioned diagnoses and treatment and imaging. Antibiotics per Infectious Diseases. Julia Warner M.D. DR: Ilene JOB#: [id number] CC:
[2019-09-10 04:00] VITALS: BP 158/70
[2019-09-10] MEDS: NovoLOG Insulin Flexpen SUBQ SCH ×4 (06:36→20:51)
[2019-09-10 08:00] VITALS: BP 130/68
[2019-09-10] MEDS: Aspirin Baby 81mg ORAL SCH (08:25)
[2019-09-10] MEDS: Docusate 100mg cap ORAL SCH ×3 (08:25→17:37)
[2019-09-10] MEDS: Enoxaparin 100mg Inj SUBQ SCH (08:27)
[2019-09-10 09:06] LABS: HEMATOCRIT 42.1 % (42.0-52.0); MEAN CORPUSCULAR VOLUME 100 FL (80-99); PLATELET COUNT 193 K/UL (150-450); RED BLOOD COUNT 4.22 M/UL (4.70-6.10); RED CELL DISTRIBUTION WIDTH 10.8 % (11.6-14.8); WHITE BLOOD COUNT 16.4 K/UL (4.8-10.8)
--- NOTE | 2019-09-10 09:36 | Infectious Diseases Prog Note ---
Assessment/Plan Assessment/Plan IMPRESSION: Sepsis improving UTI with E. coli Negative COVID19 test, Acute renal failure, Diabetes with hyperglycemia, Hypertension, history of CVA and left hemiparesis. Cardiac ischemia RECOMMENDATION: Continue with ceftriaxone. We will follow up the cultures. Subjective ROS Limited/Unobtainable: Yes Constitutional: Reports: no symptoms Respiratory: Reports: no symptoms Gastrointestinal/Abdominal: Reports: no symptoms Genitourinary: Reports: no symptoms Allergies: Coded Allergies: No Known Allergies (Unverified , 09/08/19) Objective Last 24 Hour Vital Signs Date Time Temp Pulse Resp B/P (MAP) Pulse Ox O2 Delivery O2 Flow Rate FiO2 09/10/19 04:00 86 09/10/19 04:00 97.5 55 18 158/70 (99) 100 09/10/19 01:58 51 09/10/19 00:00 97.5 54 18 122/68 (86) 100 09/10/19 00:00 51 09/09/19 21:00 Nasal Cannula 3.0 09/09/19 20:00 98.1 57 17 135/79 (97) 98 09/09/19 20:00 61 09/09/19 16:00 66 09/09/19 16:00 97.5 68 18 128/62 (84) 98 09/09/19 12:00 97.9 73 20 130/64 (86) 99 09/09/19 12:00 74 Height (Feet): 6 Height (Inches): 0.00 Weight (Pounds): 210 General Appearance: no acute distress HEENT: mucous membranes moist Respiratory/Chest: lungs clear, other - oxygen by nasal cannula Cardiovascular: bradycardia Abdomen: soft, non tender Extremities: no edema Neurologic/Psychiatric: alert, oriented x 3, responsive Microbiology Date/Time Source Procedure Growth Status 09/08/19 17:55 Blood Blood Culture - Preliminary NO GROWTH AFTER 24 HOURS Resulted 09/08/19 17:40 Blood Blood Culture - Preliminary NO GROWTH AFTER 24 HOURS Resulted 09/08/19 19:00 Nasopharynx Coronavirus COVID-19 PCR (ALEXANDRA) - Final Complete 09/08/19 18:35 Urine,Clean Catch Urine Culture - Final Escherichia Coli Complete Laboratory Tests Test 09/09/19 10:37 09/10/19 03:30 09/10/19 08:40 Urine Random Sodium 46 mmol/L (20-110) Urine Eosinophils None seen (NONE SEEN) White Blood Count 16.4 K/UL (4.8-10.8) H Red Blood Count 4.22 M/UL (4.70-6.10) L Hemoglobin 14.0 G/DL (14.2-18.0) L Hematocrit 42.1 % (42.0-52.0) Mean Corpuscular Volume 100 FL (80-99) H Mean Corpuscular Hemoglobin 33.2 PG (27.0-31.0) H Mean Corpuscular Hemoglobin Concent 33.3 G/DL (32.0-36.0) Red Cell Distribution Width 10.8 % (11.6-14.8) L Platelet Count 193 K/UL (150-450) Mean Platelet Volume 7.7 FL (6.5-10.1) Neutrophils (%) (Auto) % (45.0-75.0) Lymphocytes (%) (Auto) % (20.0-45.0) Monocytes (%) (Auto) % (1.0-10.0) Eosinophils (%) (Auto) % (0.0-3.0) Basophils (%) (Auto) % (0.0-2.0) Neutrophils % (Manual) Pending Lymphocytes % (Manual) Pending Platelet Estimate Pending Platelet Morphology Pending D-Dimer 27.71 mg/L FEU (0.00-0.49) H Sodium Level Pending Potassium Level Pending Chloride Level Pending Carbon Dioxide Level Pending Blood Urea Nitrogen Pending Creatinine Pending Estimat Glomerular Filtration Rate Pending Glucose Level Pending Uric Acid Pending Calcium Level Pending Phosphorus Level Pending Magnesium Level Pending Total Bilirubin Pending Aspartate Amino Transf (AST/SGOT) Pending Alanine Aminotransferase (ALT/SGPT) Pending Alkaline Phosphatase Pending Troponin I Pending C-Reactive Protein, Quantitative Pending Pro-B-Type Natriuretic Peptide Pending Total Protein Pending Albumin Pending Globulin Pending Triglycerides Level Pending Cholesterol Level Pending LDL Cholesterol Pending HDL Cholesterol Pending Cholesterol/HDL Ratio Pending Thyroid Stimulating Hormone (TSH) Pending Current Medications Medications (Trade) Dose Ordered Sig/Karyna Route PRN Reason Start Time Stop Time Status Last Admin Dose Admin Acetaminophen (Tylenol) 500 mg Q4H PRN ORAL Mild Pain (Pain Scale 1-3) 09/09/19 02:00 10/09/19 01:59 Aspirin (ASA) 81 mg DAILY ORAL 09/09/19 10:30 10/24/19 10:29 09/10/19 08:25 Ceftriaxone Sodium 1 gm/ Dextrose 55 ml @ 110 mls/hr Q24H IVPB 09/08/19 23:00 09/15/19 22:59 09/09/19 23:03 Dextrose (Dextrose 50%) 25 ml Q30M PRN IV Hypoglycemia 09/09/19 17:30 12/08/19 17:29 Dextrose (Dextrose 50%) 50 ml Q30M PRN IV Hypoglycemia 09/09/19 17:30 12/08/19 17:29 Docusate Sodium (Colace) 100 mg THREE TIMES A DAY ORAL 09/09/19 13:00 10/09/19 12:59 09/10/19 08:25 Enoxaparin Sodium (Lovenox) 100 mg Q24H SUBQ 09/09/19 09:00 12/08/19 08:59 09/10/19 08:27 Hydralazine HCl (Apresoline) 25 mg Q4H PRN ORAL BP over 160 systolic 09/09/19 10:00 12/08/19 09:59 Insulin Aspart (NovoLOG) BEFORE MEALS AND HS SUBQ 09/09/19 21:00 12/08/19 20:59 09/10/19 06:36 Pantoprazole (Protonix) 40 mg EVERY 12 HOURS ORAL 09/09/19 21:00 10/09/19 20:59 09/10/19 08:25 Sodium Chloride 1,000 ml @ 75 mls/hr [id number] IV 09/09/19 10:00 10/09/19 09:59 09/09/19 23:03 Nacho Angulo MD Sep 10, 2019 09:35
[2019-09-10 09:39] LABS: ALANINE AMINOTRANSFERASE 30 U/L (12-78); ALBUMIN 3.1 G/DL (3.4-5.0); ALBUMIN/GLOBULIN RATIO 0.8 (1.0-2.7); ALKALINE PHOSPHATASE 68 U/L (46-116); ANION GAP 10 mmol/L (5-15); ASPARTATE AMINO TRANSFERASE 25 U/L (15-37); BILIRUBIN,TOTAL 0.9 MG/DL (0.2-1.0); BLOOD UREA NITROGEN 33 mg/dL (7-18); CALCIUM 7.9 MG/DL (8.5-10.1); CARBON DIOXIDE 24 MMOL/L (21-32); CHLORIDE 107 MMOL/L (98-107); CHOLESTEROL 134 MG/DL (< 200); CREATININE 1.9 MG/DL (0.55-1.30); HDL CHOLESTEROL 29 MG/DL (40-60); PHOSPHORUS 2.9 MG/DL (2.5-4.9); POTASSIUM 3.9 MMOL/L (3.5-5.1); SODIUM 141 MMOL/L (136-145); TRIGLYCERIDES 161 MG/DL (30-150)
--- NOTE | 2019-09-10 11:08 | Hematology/Onc Progress Note ---
Assessment/Plan Assessment/Plan Assessment and Recs # Elevated didmer in the setting of ALOC, sepsis, r./o covid19 --> r/o underlying infection, imaging reviewed --> has been started initially on heparin gtt, now on lovenox sq --> duplex lower extremity ordered, wilian Rn --> pulm eval prn basis # Leukocytosis r/o underlying infection --> may also be elevated due to been given steriods # Dehydration --> goal of euvolemia --> ivfs started # UTI, Urine positive for UTI -> abx as per id # BUN/creatinine elevated. Lactic 2.5. # Hypernatremia with a Na 147, --> ivfs started # Dvt ppx lovenox Appreciate consultation and wilian RN Subjective HEENT: Denies: no symptoms, eye pain, blurred vision, tearing, double vision, ear pain, ear discharge, nose pain, nose congestion, throat pain, throat swelling, mouth pain, mouth swelling, other Cardiovascular: Denies: no symptoms, chest pain, edema, irregular heart rate, lightheadedness, palpitations, syncope, other Respiratory: Denies: no symptoms, cough, shortness of breath, SOB with excertion, SOB at rest, sputum, wheezing, other Genitourinary: Denies: no symptoms, burning, discharge, frequency, flank pain, hematuria, incontinence, pain, urgency, other Neurologic/Psychiatric: Denies: no symptoms, anxiety, depressed, emotional problems, headache, numbness, paresthesia, pre-existing deficit, seizure, tingling, tremors, weakness, other Endocrine: Denies: no symptoms, excessive sweating, flushing, intolerance to cold, intolerance to heat, increased hunger, increased thirst, increased urine, unexplained weight gain, unexplained weight loss, other Hematologic/Lymphatic: Denies: no symptoms, anemia, easy bleeding, easy bruising, adenopathy, other Allergies: Coded Allergies: No Known Allergies (Unverified , 09/08/19) Subjective 09/09 meds reviewed, no bleeding, labs noted, altered, on ctx abx Objective Objective Current Medications Medications (Trade) Dose Ordered Sig/Karyna Route PRN Reason Start Time Stop Time Status Last Admin Dose Admin Acetaminophen (Tylenol) 500 mg Q4H PRN ORAL Mild Pain (Pain Scale 1-3) 09/09/19 02:00 10/09/19 01:59 Aspirin (ASA) 81 mg DAILY ORAL 09/09/19 10:30 10/24/19 10:29 09/10/19 08:25 Ceftriaxone Sodium 1 gm/ Dextrose 55 ml @ 110 mls/hr Q24H IVPB 09/08/19 23:00 09/15/19 22:59 09/09/19 23:03 Dextrose (Dextrose 50%) 25 ml Q30M PRN IV Hypoglycemia 09/09/19 17:30 12/08/19 17:29 Dextrose (Dextrose 50%) 50 ml Q30M PRN IV Hypoglycemia 09/09/19 17:30 12/08/19 17:29 Docusate Sodium (Colace) 100 mg THREE TIMES A DAY ORAL 09/09/19 13:00 10/09/19 12:59 09/10/19 08:25 Enoxaparin Sodium (Lovenox) 100 mg Q24H SUBQ 09/09/19 09:00 12/08/19 08:59 09/10/19 08:27 Hydralazine HCl (Apresoline) 25 mg Q4H PRN ORAL BP over 160 systolic 09/09/19 10:00 12/08/19 09:59 Insulin Aspart (NovoLOG) BEFORE MEALS AND HS SUBQ 09/09/19 21:00 12/08/19 20:59 09/10/19 06:36 Pantoprazole (Protonix) 40 mg EVERY 12 HOURS ORAL 09/09/19 21:00 10/09/19 20:59 09/10/19 08:25 Sodium Chloride 1,000 ml @ 75 mls/hr [id number] IV 09/09/19 10:00 10/09/19 09:59 09/09/19 23:03 Last 24 Hour Vital Signs Date Time Temp Pulse Resp B/P (MAP) Pulse Ox O2 Delivery O2 Flow Rate FiO2 09/10/19 08:00 86 09/10/19 08:00 97.9 68 18 130/68 (88) 97 09/10/19 04:00 86 09/10/19 04:00 97.5 55 18 158/70 (99) 100 09/10/19 01:58 51 09/10/19 00:00 97.5 54 18 122/68 (86) 100 09/10/19 00:00 51 09/09/19 21:00 Nasal Cannula 3.0 09/09/19 20:00 98.1 57 17 135/79 (97) 98 09/09/19 20:00 61 09/09/19 16:00 66 09/09/19 16:00 97.5 68 18 128/62 (84) 98 09/09/19 12:00 97.9 73 20 130/64 (86) 99 09/09/19 12:00 74 09/09/19 09:00 Nasal Cannula 3.0 09/09/19 08:00 77 09/09/19 08:00 97.7 74 18 135/71 (92) 100 09/09/19 04:00 83 09/09/19 04:00 97.7 75 20 138/75 (96) 98 09/09/19 01:58 Nasal Cannula 3.0 09/09/19 00:00 97.8 89 18 127/77 (94) 98 09/09/19 00:00 104 09/09/19 00:00 104 09/08/19 22:38 98.0 106 20 120/61 100 Nasal Cannula 3.0 09/08/19 21:45 98.0 111 20 120/61 100 Nasal Cannula 3.0 09/08/19 20:00 99.1 118 20 124/105 100 Non-Rebreather 10.0 09/08/19 17:53 123 16 Room Air 09/08/19 17:53 101.5 123 16 141/89 99 Non-Rebreather 15.0 09/08/19 17:41 101.5 123 16 141/89 (106) 92 Room Air Intake and Output 09/09/19 09/10/19 19:00 07:00 Intake Total 840 ml 240 ml Output Total 400 ml 600 ml Balance 440 ml -360 ml Intake Oral 240 ml 240 ml IV Total 600 ml Output Urine Total 400 ml 600 ml Labs Test 09/08/19 17:55 09/08/19 18:35 09/08/19 21:50 09/09/19 06:24 White Blood Count 12.3 K/UL (4.8-10.8) 15.0 K/UL (4.8-10.8) Red Blood Count 4.74 M/UL (4.70-6.10) 4.38 M/UL (4.70-6.10) Hemoglobin 15.4 G/DL (14.2-18.0) 14.5 G/DL (14.2-18.0) Hematocrit 48.1 % (42.0-52.0) 44.7 % (42.0-52.0) Mean Corpuscular Volume 102 FL (80-99) 102 FL (80-99) Mean Corpuscular Hemoglobin 32.5 PG (27.0-31.0) 33.1 PG (27.0-31.0) Mean Corpuscular Hemoglobin Concent 32.0 G/DL (32.0-36.0) 32.4 G/DL (32.0-36.0) Red Cell Distribution Width 11.8 % (11.6-14.8) 11.1 % (11.6-14.8) Platelet Count 207 K/UL (150-450) 183 K/UL (150-450) Mean Platelet Volume 7.0 FL (6.5-10.1) 6.1 FL (6.5-10.1) Neutrophils (%) (Auto) 78.8 % (45.0-75.0) % (45.0-75.0) Lymphocytes (%) (Auto) 8.6 % (20.0-45.0) % (20.0-45.0) Monocytes (%) (Auto) 11.8 % (1.0-10.0) % (1.0-10.0) Eosinophils (%) (Auto) 0.0 % (0.0-3.0) % (0.0-3.0) Basophils (%) (Auto) 0.8 % (0.0-2.0) % (0.0-2.0) Erythrocyte Sedimentation Rate 75 MM/HR (0-20) Prothrombin Time 13.5 SEC (9.30-11.50) Prothromb Time International Ratio 1.2 (0.9-1.1) Activated Partial Thromboplast Time 26 SEC (23-33) D-Dimer > 35.20 mg/L FEU Sodium Level 147 MMOL/L (136-145) 143 MMOL/L (136-145) Potassium Level 4.1 MMOL/L (3.5-5.1) 4.8 MMOL/L (3.5-5.1) Chloride Level 109 MMOL/L (98-107) 110 MMOL/L (98-107) Carbon Dioxide Level 21 MMOL/L (21-32) 19 MMOL/L (21-32) Anion Gap 17 mmol/L (5-15) 14 mmol/L (5-15) Blood Urea Nitrogen 52 mg/dL (7-18) 43 mg/dL (7-18) Creatinine 3.8 MG/DL (0.55-1.30) 2.8 MG/DL (0.55-1.30) Estimat Glomerular Filtration Rate 15.6 mL/min (>60) 26.8 mL/min (>60) Glucose Level 310 MG/DL (74-106) 326 MG/DL (74-106) Lactic Acid Level 2.50 mmol/L (0.4-2.0) 1.70 mmol/L (0.66-2.22) Calcium Level 9.6 MG/DL (8.5-10.1) 8.6 MG/DL (8.5-10.1) Total Bilirubin 1.7 MG/DL (0.2-1.0) 1.5 MG/DL (0.2-1.0) Direct Bilirubin 0.3 MG/DL (0.0-0.3) 0.2 MG/DL (0.0-0.3) Aspartate Amino Transf (AST/SGOT) 64 U/L (15-37) 56 U/L (15-37) Alanine Aminotransferase (ALT/SGPT) 72 U/L (12-78) 59 U/L (12-78) Alkaline Phosphatase 87 U/L (46-116) 73 U/L (46-116) C-Reactive Protein, Quantitative 0.9 mg/dL (0.00-0.90) Pro-B-Type Natriuretic Peptide 482 pg/mL (0-125) Total Protein 8.8 G/DL (6.4-8.2) 7.4 G/DL (6.4-8.2) Albumin 4.3 G/DL (3.4-5.0) 3.1 G/DL (3.4-5.0) Globulin 4.5 g/dL 4.3 g/dL Albumin/Globulin Ratio 1.0 (1.0-2.7) 0.7 (1.0-2.7) Urine Color Yellow Urine Appearance Very cloudy Urine pH 5 (4.5-8.0) Urine Specific [place] 1.025 (1.005-1.035) Urine Protein 3+ (NEGATIVE) Urine Glucose (UA) 1+ (NEGATIVE) Urine Ketones 1+ (NEGATIVE) Urine Blood 5+ (NEGATIVE) Urine Nitrite Negative (NEGATIVE) Urine Bilirubin Negative (NEGATIVE) Urine Urobilinogen 1 MG/DL (0.0-1.0) Urine Leukocyte Esterase 3+ (NEGATIVE) Urine RBC 5-10 /HPF (0 - 0) Urine WBC Tntc /HPF (0 - 0) Urine Squamous Epithelial Cells Occasional /LPF Urine Bacteria Many /HPF (NONE) Differential Total Cells Counted 100 Neutrophils % (Manual) 85 % (45-75) Lymphocytes % (Manual) 14 % (20-45) Monocytes % (Manual) 1 % (1-10) Eosinophils % (Manual) 0 % (0-3) Basophils % (Manual) 0 % (0-2) Band Neutrophils 0 % (0-8) Platelet Estimate Adequate Platelet Morphology Normal Macrocytosis 1+ Hemoglobin A1c 7.5 % (4.3-6.0) Test 09/09/19 08:50 09/09/19 10:37 09/10/19 03:30 09/10/19 08:40 Uric Acid 9.2 MG/DL (2.6-7.2) 7.2 MG/DL (2.6-7.2) Phosphorus Level 1.6 MG/DL (2.5-4.9) 2.9 MG/DL (2.5-4.9) Magnesium Level 2.0 MG/DL (1.8-2.4) 1.9 MG/DL (1.8-2.4) Gamma Glutamyl Transpeptidase 20 U/L (5-85) Total Creatine Kinase 628 U/L (26-308) C-Reactive Protein, Quantitative 1.0 mg/dL (0.00-0.90) 0.7 mg/dL (0.00-0.90) Pro-B-Type Natriuretic Peptide 1370 pg/mL (0-125) 841 pg/mL (0-125) Thyroid Stimulating Hormone (TSH) 0.379 uiU/mL (0.358-3.740) 0.439 uiU/mL (0.358-3.740) Urine Random Sodium 46 mmol/L (20-110) Urine Eosinophils None seen (NONE SEEN) White Blood Count 16.4 K/UL (4.8-10.8) Red Blood Count 4.22 M/UL (4.70-6.10) Hemoglobin 14.0 G/DL (14.2-18.0) Hematocrit 42.1 % (42.0-52.0) Mean Corpuscular Volume 100 FL (80-99) Mean Corpuscular Hemoglobin 33.2 PG (27.0-31.0) Mean Corpuscular Hemoglobin Concent 33.3 G/DL (32.0-36.0) Red Cell Distribution Width 10.8 % (11.6-14.8) Platelet Count 193 K/UL (150-450) Mean Platelet Volume 7.7 FL (6.5-10.1) Neutrophils (%) (Auto) % (45.0-75.0) Lymphocytes (%) (Auto) % (20.0-45.0) Monocytes (%) (Auto) % (1.0-10.0) Eosinophils (%) (Auto) % (0.0-3.0) Basophils (%) (Auto) % (0.0-2.0) Differential Total Cells Counted 100 Neutrophils % (Manual) 89 % (45-75) Lymphocytes % (Manual) 9 % (20-45) Monocytes % (Manual) 2 % (1-10) Eosinophils % (Manual) 0 % (0-3) Basophils % (Manual) 0 % (0-2) Band Neutrophils 0 % (0-8) Platelet Estimate Adequate Platelet Morphology Normal Macrocytosis 1+ D-Dimer 27.71 mg/L FEU (0.00-0.49) Sodium Level 141 MMOL/L (136-145) Potassium Level 3.9 MMOL/L (3.5-5.1) Chloride Level 107 MMOL/L (98-107) Carbon Dioxide Level 24 MMOL/L (21-32) Anion Gap 10 mmol/L (5-15) Blood Urea Nitrogen 33 mg/dL (7-18) Creatinine 1.9 MG/DL (0.55-1.30) Estimat Glomerular Filtration Rate 41.9 mL/min (>60) Glucose Level 208 MG/DL (74-106) Calcium Level 7.9 MG/DL (8.5-10.1) Total Bilirubin 0.9 MG/DL (0.2-1.0) Aspartate Amino Transf (AST/SGOT) 25 U/L (15-37) Alanine Aminotransferase (ALT/SGPT) 30 U/L (12-78) Alkaline Phosphatase 68 U/L (46-116) Troponin I 0.187 ng/mL (0.000-0.056) Total Protein 6.9 G/DL (6.4-8.2) Albumin 3.1 G/DL (3.4-5.0) Globulin 3.8 g/dL Albumin/Globulin Ratio 0.8 (1.0-2.7) Triglycerides Level 161 MG/DL (30-150) Cholesterol Level 134 MG/DL (< 200) LDL Cholesterol 78 mg/dL (<100) HDL Cholesterol 29 MG/DL (40-60) Cholesterol/HDL Ratio 4.6 (3.3-4.4) Height (Feet): 6 Height (Inches): 0.00 Weight (Pounds): 210 Objective General: no apparent distress, GCS 15, non-toxic, lethargic HEENT: normal ENT inspection Neck: normal inspection Respiratory: chest non-tender, lungs clear, normal breath sounds, speaking full sentences Cardiovascular: tachycardia Gastrointestinal: normal bowel sounds, non tender Genitourinary: no CVA tenderness Musculoskeletal: normal inspection Neurologic: other - AMS Psychiatric: other - AMS Skin: other - see nrusing notes Lymphatic: normal inspection Lewis Bourne MD Sep 10, 2019 11:08
[2019-09-10 12:00] VITALS: BP 153/75
--- NOTE | 2019-09-10 12:58 | Pulmonology Progress Note ---
Subjective ROS Limited/Unobtainable: Yes Constitutional: Reports: no symptoms HEENT: Repors: no symptoms Respiratory: Reports: no symptoms Cardiovascular: Reports: no symptoms Gastrointestinal/Abdominal: Reports: no symptoms Allergies: Coded Allergies: No Known Allergies (Unverified , 09/08/19) Objective Last 24 Hour Vital Signs Date Time Temp Pulse Resp B/P (MAP) Pulse Ox O2 Delivery O2 Flow Rate FiO2 09/10/19 09:00 Nasal Cannula 2.0 09/10/19 08:00 86 09/10/19 08:00 97.9 68 18 130/68 (88) 97 09/10/19 04:00 86 09/10/19 04:00 97.5 55 18 158/70 (99) 100 09/10/19 01:58 51 09/10/19 00:00 97.5 54 18 122/68 (86) 100 09/10/19 00:00 51 09/09/19 21:00 Nasal Cannula 3.0 09/09/19 20:00 98.1 57 17 135/79 (97) 98 09/09/19 20:00 61 09/09/19 16:00 66 09/09/19 16:00 97.5 68 18 128/62 (84) 98 Intake and Output 09/09/19 09/10/19 19:00 07:00 Intake Total 840 ml 240 ml Output Total 400 ml 600 ml Balance 440 ml -360 ml Intake Oral 240 ml 240 ml IV Total 600 ml Output Urine Total 400 ml 600 ml General Appearance: no acute distress HEENT: normocephalic Respiratory: chest wall non-tender, lungs clear Cardiovascular: normal peripheral pulses Abdomen: normal bowel sounds Microbiology Date/Time Source Procedure Growth Status 09/08/19 17:55 Blood Blood Culture - Preliminary Resulted 09/08/19 17:40 Blood Blood Culture - Preliminary Resulted 09/08/19 19:00 Nasopharynx Coronavirus COVID-19 PCR (ALEXANDRA) - Final Complete 09/08/19 18:35 Urine,Clean Catch Urine Culture - Final Escherichia Coli Complete Laboratory Tests 09/10/19 03:30: Urine Eosinophils None seen 09/10/19 08:40: White Blood Count 16.4H, Red Blood Count 4.22L, Hemoglobin 14.0L, Hematocrit 42.1, Mean Corpuscular Volume 100H, Mean Corpuscular Hemoglobin 33.2H, Mean Corpuscular Hemoglobin Concent 33.3, Red Cell Distribution Width 10.8L, Platelet Count 193, Mean Platelet Volume 7.7, Neutrophils (%) (Auto) , Lymphocytes (%) (Auto) , Monocytes (%) (Auto) , Eosinophils (%) (Auto) , Basophils (%) (Auto) , Differential Total Cells Counted 100, Neutrophils % ( Manual) 89H, Lymphocytes % (Manual) 9L, Monocytes % (Manual) 2, Eosinophils % ( Manual) 0, Basophils % (Manual) 0, Band Neutrophils 0, Platelet Estimate Adequate, Platelet Morphology Normal, Macrocytosis 1+, D-Dimer 27.71H, Sodium Level 141, Potassium Level 3.9, Chloride Level 107, Carbon Dioxide Level 24, Anion Gap 10, Blood Urea Nitrogen 33H, Creatinine 1.9H, Estimat Glomerular Filtration Rate 41.9, Glucose Level 208#H, Uric Acid 7.2, Calcium Level 7.9L, Phosphorus Level 2.9, Magnesium Level 1.9, Total Bilirubin 0.9, Aspartate Amino Transf (AST/SGOT) 25, Alanine Aminotransferase (ALT/SGPT) 30, Alkaline Phosphatase 68, Troponin I 0.187H, C-Reactive Protein, Quantitative 0.7, Pro-B- Type Natriuretic Peptide 841H, Total Protein 6.9, Albumin 3.1L, Globulin 3.8, Albumin/Globulin Ratio 0.8L, Triglycerides Level 161H, Cholesterol Level 134, LDL Cholesterol 78, HDL Cholesterol 29L, Cholesterol/HDL Ratio 4.6H, Thyroid Stimulating Hormone (TSH) 0.439 Current Medications Medications (Trade) Dose Ordered Sig/Karyna Route PRN Reason Start Time Stop Time Status Last Admin Dose Admin Acetaminophen (Tylenol) 500 mg Q4H PRN ORAL Mild Pain (Pain Scale 1-3) 09/09/19 02:00 10/09/19 01:59 Aspirin (ASA) 81 mg DAILY ORAL 09/09/19 10:30 10/24/19 10:29 09/10/19 08:25 Ceftriaxone Sodium 1 gm/ Sodium Chloride 55 ml @ 110 mls/hr QHS IVPB 09/10/19 21:00 09/15/19 20:59 Dextrose (Dextrose 50%) 25 ml Q30M PRN IV Hypoglycemia 09/09/19 17:30 12/08/19 17:29 Dextrose (Dextrose 50%) 50 ml Q30M PRN IV Hypoglycemia 09/09/19 17:30 12/08/19 17:29 Docusate Sodium (Colace) 100 mg THREE TIMES A DAY ORAL 09/09/19 13:00 10/09/19 12:59 09/10/19 08:25 Enoxaparin Sodium (Lovenox) 100 mg Q24H SUBQ 09/09/19 09:00 12/08/19 08:59 09/10/19 08:27 Hydralazine HCl (Apresoline) 25 mg Q4H PRN ORAL BP over 160 systolic 09/09/19 10:00 12/08/19 09:59 Insulin Aspart (NovoLOG) BEFORE MEALS AND HS SUBQ 09/09/19 21:00 12/08/19 20:59 09/10/19 06:36 Pantoprazole (Protonix) 40 mg EVERY 12 HOURS ORAL 09/09/19 21:00 10/09/19 20:59 09/10/19 08:25 Sodium Chloride 1,000 ml @ 75 mls/hr [id number] IV 09/09/19 10:00 10/09/19 09:59 09/09/19 23:03 Assessment/Plan Assessment/Plan IMPRESSION: 1. Altered mental status. 2. UTI. 3. Diabetes mellitus. 4. Hypertension. 5. Renal failure. 6. Elevated D-dimer. DISCUSSION: His inflammatory markers are abnormal. Is negative for COVID 19 pcr On full dose Lovenox Continue broad-spectrum antibiotics. Defer to ID. I will follow carefully. Ketan Duran M.D. Ketan Duran MD Sep 10, 2019 12:58
--- NOTE | 2019-09-10 13:23 | Nephrology Progress Note ---
Assessment/Plan Problem List: (1) Renal failure (ARF), acute on chronic (2) Dehydration (3) Sepsis (4) UTI (urinary tract infection) Assessment This 74-year-old male presented to emergency room with fever, leukocytosis, evidence of UTI/sepsis He has leukocytosis and increased d-dimer, suspected 2019 novel coronavirus infection, however the first test is negative Renal impression: Acute on chronic kidney disease Superimposed dehydration Underlying diabetic nephropathy Diabetes mellitus [id number] Plan Add Nitropaste for elevated troponin Add fish oil Slow IV hydration Monitor renal parameters Patient has a Carmen catheter Avoid nephrotoxic's On diabetic friendly diet now Keep the blood pressure and blood sugar in check Per orders Discussed with RN Subjective ROS Limited/Unobtainable: No Constitutional: Reports: malaise, weakness Objective Objective Last 24 Hour Vital Signs Date Time Temp Pulse Resp B/P (MAP) Pulse Ox O2 Delivery O2 Flow Rate FiO2 09/10/19 09:00 Nasal Cannula 2.0 09/10/19 08:00 86 09/10/19 08:00 97.9 68 18 130/68 (88) 97 09/10/19 04:00 86 09/10/19 04:00 97.5 55 18 158/70 (99) 100 09/10/19 01:58 51 09/10/19 00:00 97.5 54 18 122/68 (86) 100 09/10/19 00:00 51 09/09/19 21:00 Nasal Cannula 3.0 09/09/19 20:00 98.1 57 17 135/79 (97) 98 09/09/19 20:00 61 09/09/19 16:00 66 09/09/19 16:00 97.5 68 18 128/62 (84) 98 Intake and Output 09/09/19 09/10/19 19:00 07:00 Intake Total 840 ml 240 ml Output Total 400 ml 600 ml Balance 440 ml -360 ml Intake Oral 240 ml 240 ml IV Total 600 ml Output Urine Total 400 ml 600 ml Laboratory Tests 09/10/19 03:30: Urine Eosinophils None seen 09/10/19 08:40: White Blood Count 16.4H, Red Blood Count 4.22L, Hemoglobin 14.0L, Hematocrit 42.1, Mean Corpuscular Volume 100H, Mean Corpuscular Hemoglobin 33.2H, Mean Corpuscular Hemoglobin Concent 33.3, Red Cell Distribution Width 10.8L, Platelet Count 193, Mean Platelet Volume 7.7, Neutrophils (%) (Auto) , Lymphocytes (%) (Auto) , Monocytes (%) (Auto) , Eosinophils (%) (Auto) , Basophils (%) (Auto) , Differential Total Cells Counted 100, Neutrophils % ( Manual) 89H, Lymphocytes % (Manual) 9L, Monocytes % (Manual) 2, Eosinophils % ( Manual) 0, Basophils % (Manual) 0, Band Neutrophils 0, Platelet Estimate Adequate, Platelet Morphology Normal, Macrocytosis 1+, D-Dimer 27.71H, Sodium Level 141, Potassium Level 3.9, Chloride Level 107, Carbon Dioxide Level 24, Anion Gap 10, Blood Urea Nitrogen 33H, Creatinine 1.9H, Estimat Glomerular Filtration Rate 41.9, Glucose Level 208#H, Uric Acid 7.2, Calcium Level 7.9L, Phosphorus Level 2.9, Magnesium Level 1.9, Total Bilirubin 0.9, Aspartate Amino Transf (AST/SGOT) 25, Alanine Aminotransferase (ALT/SGPT) 30, Alkaline Phosphatase 68, Troponin I 0.187H, C-Reactive Protein, Quantitative 0.7, Pro-B- Type Natriuretic Peptide 841H, Total Protein 6.9, Albumin 3.1L, Globulin 3.8, Albumin/Globulin Ratio 0.8L, Triglycerides Level 161H, Cholesterol Level 134, LDL Cholesterol 78, HDL Cholesterol 29L, Cholesterol/HDL Ratio 4.6H, Thyroid Stimulating Hormone (TSH) 0.439 09/10/19 13:13: POC Whole Blood Glucose 201H Height (Feet): 6 Height (Inches): 0.00 Weight (Pounds): 210 General Appearance: no apparent distress, lethargic Cardiovascular: normal rate, other - Variable Respiratory/Chest: decreased breath sounds Abdomen: distended Wild Kraft MD Sep 10, 2019 13:23
[2019-09-10] MEDS: Nitroglycerin Patch 0.4mg TDERMAL SCH (15:04)
[2019-09-10 16:00] VITALS: BP 156/84
--- NOTE | 2019-09-10 16:48 | Cardiac Electrophysiology PN ---
Assessment/Plan Assessment/Plan 1. Hypertension. Patient is on p.r.n. hydralazine at this point. Add Lopressor 25 bid 2. NSTEMI with elevated troponin and Inferolateral ischemia. Denies any chest pain. EF 55%. Patient has first-degree AV block.Add Aspirin and Lopressor and repeat ECG and troponin in am. 3. Shortness of breath, patient being ruled out for COVID and already started on ceftriaxone. 4. Elevated D-dimer. Patient may need lower extremity duplex for further evaluation and possible V/Q scan after ruling out COVID. 5. Renal failure with Cr 1.9 6. Bacteremia and UTI on Ceftriaxone DW RN Subjective Subjective Covid is negative. Has first degree AVB. Blood Cx now positive and has UTI on Abx Objective Last 24 Hour Vital Signs Date Time Temp Pulse Resp B/P (MAP) Pulse Ox O2 Delivery O2 Flow Rate FiO2 09/10/19 16:00 97.5 87 18 156/84 (108) 100 09/10/19 15:04 153/75 09/10/19 12:00 51 09/10/19 12:00 97.7 71 20 153/75 (101) 96 09/10/19 09:00 Nasal Cannula 2.0 09/10/19 08:00 86 09/10/19 08:00 97.9 68 18 130/68 (88) 97 09/10/19 04:00 86 09/10/19 04:00 97.5 55 18 158/70 (99) 100 09/10/19 01:58 51 09/10/19 00:00 97.5 54 18 122/68 (86) 100 09/10/19 00:00 51 09/09/19 21:00 Nasal Cannula 3.0 09/09/19 20:00 98.1 57 17 135/79 (97) 98 09/09/19 20:00 61 Intake and Output 09/09/19 09/10/19 19:00 07:00 Intake Total 840 ml 315 ml Output Total 400 ml 600 ml Balance 440 ml -285 ml Intake Oral 240 ml 240 ml IV Total 600 ml 75 ml Output Urine Total 400 ml 600 ml Laboratory Tests Test 09/10/19 03:30 09/10/19 08:40 09/10/19 13:13 Urine Eosinophils None seen (NONE SEEN) White Blood Count 16.4 K/UL (4.8-10.8) H Red Blood Count 4.22 M/UL (4.70-6.10) L Hemoglobin 14.0 G/DL (14.2-18.0) L Hematocrit 42.1 % (42.0-52.0) Mean Corpuscular Volume 100 FL (80-99) H Mean Corpuscular Hemoglobin 33.2 PG (27.0-31.0) H Mean Corpuscular Hemoglobin Concent 33.3 G/DL (32.0-36.0) Red Cell Distribution Width 10.8 % (11.6-14.8) L Platelet Count 193 K/UL (150-450) Mean Platelet Volume 7.7 FL (6.5-10.1) Neutrophils (%) (Auto) % (45.0-75.0) Lymphocytes (%) (Auto) % (20.0-45.0) Monocytes (%) (Auto) % (1.0-10.0) Eosinophils (%) (Auto) % (0.0-3.0) Basophils (%) (Auto) % (0.0-2.0) Differential Total Cells Counted 100 Neutrophils % (Manual) 89 % (45-75) H Lymphocytes % (Manual) 9 % (20-45) L Monocytes % (Manual) 2 % (1-10) Eosinophils % (Manual) 0 % (0-3) Basophils % (Manual) 0 % (0-2) Band Neutrophils 0 % (0-8) Platelet Estimate Adequate Platelet Morphology Normal Macrocytosis 1+ D-Dimer 27.71 mg/L FEU (0.00-0.49) H Sodium Level 141 MMOL/L (136-145) Potassium Level 3.9 MMOL/L (3.5-5.1) Chloride Level 107 MMOL/L (98-107) Carbon Dioxide Level 24 MMOL/L (21-32) Anion Gap 10 mmol/L (5-15) Blood Urea Nitrogen 33 mg/dL (7-18) H Creatinine 1.9 MG/DL (0.55-1.30) H Estimat Glomerular Filtration Rate 41.9 mL/min (>60) Glucose Level 208 MG/DL (74-106) #H Uric Acid 7.2 MG/DL (2.6-7.2) Calcium Level 7.9 MG/DL (8.5-10.1) L Phosphorus Level 2.9 MG/DL (2.5-4.9) Magnesium Level 1.9 MG/DL (1.8-2.4) Total Bilirubin 0.9 MG/DL (0.2-1.0) Aspartate Amino Transf (AST/SGOT) 25 U/L (15-37) Alanine Aminotransferase (ALT/SGPT) 30 U/L (12-78) Alkaline Phosphatase 68 U/L (46-116) Troponin I 0.187 ng/mL (0.000-0.056) C-Reactive Protein, Quantitative 0.7 mg/dL (0.00-0.90) Pro-B-Type Natriuretic Peptide 841 pg/mL (0-125) H Total Protein 6.9 G/DL (6.4-8.2) Albumin 3.1 G/DL (3.4-5.0) L Globulin 3.8 g/dL Albumin/Globulin Ratio 0.8 (1.0-2.7) L Triglycerides Level 161 MG/DL (30-150) H Cholesterol Level 134 MG/DL (< 200) LDL Cholesterol 78 mg/dL (<100) HDL Cholesterol 29 MG/DL (40-60) L Cholesterol/HDL Ratio 4.6 (3.3-4.4) H Thyroid Stimulating Hormone (TSH) 0.439 uiU/mL (0.358-3.740) POC Whole Blood Glucose 201 MG/DL (74-106) H Microbiology Date/Time Source Procedure Growth Status 09/08/19 17:55 Blood Blood Culture - Preliminary Resulted 09/08/19 17:40 Blood Blood Culture - Preliminary Resulted 09/08/19 19:00 Nasopharynx Coronavirus COVID-19 PCR ([facility]DRA) - Final Complete 09/08/19 18:35 Urine,Clean Catch Urine Culture - Final Escherichia Coli Complete Objective NECK: No JVD. LUNGS: Clear. CARDIOVASCULAR: Regular S1 and S2 with no gallop or murmur. ABDOMEN: Soft. EXTREMITIES: No pitting edema. Rick Torres MD Sep 10, 2019 16:48
[2019-09-10] MEDS: Milk of Magnesia 30ml Ud ORAL PRN ×2 (17:37→21:48)
--- NOTE | 2019-09-10 18:44 | Consultation ---
DATE OF CONSULTATION: 09/10/2019 REFERRING PHYSICIAN: Julia Warner M.D. REASON FOR CONSULTATION: Diabetes management. HISTORY OF PRESENT ILLNESS: The patient is a 74-year-old man who was brought to the emergency department for evaluation. The patient has been altered since the morning of evaluation and was febrile, placed on oxygen. Glucose was elevated and Endocrinology was consulted. The first COVID test is negative. The patient was found to have a urinary tract infection and, therefore, was given treatment with IV antibiotic. PAST MEDICAL HISTORY: 1. Diabetes. 2. Hypertension. 3. Prior CVA. REVIEW OF SYSTEMS: As per HPI. FAMILY HISTORY: Noncontributory. SOCIAL HISTORY: No smoking, alcohol, or drug use. MEDICATIONS: Reviewed and reconciled. PHYSICAL EXAMINATION: VITAL SIGNS: Blood pressure 135/71, pulse 74, respiratory rate of 18, temperature of 97.7. NECK: No JVD. HEART: Regular. LUNGS: Clear. ABDOMEN: Positive bowel sounds. Soft. EXTREMITIES: No pitting edema. LABS: Show a WBC of 16.4, hemoglobin 14, hematocrit 42, platelets of 193. Sodium 141, potassium 3.9, chloride 107, bicarb 24, BUN 32, creatinine 1.9, glucose of 209, A1c of 7.5. DIAGNOSES: 1. Urinary tract infection. 2. Chronic kidney disease. 3. Diabetes, out of control. PLAN: 1. Start Januvia at 50 mg daily. 2. Start Starlix 60 mg before each meals. 3. NovoLog sliding scale before meals and at bedtime. 4. Further adjustment according to blood glucose values. 5. Hypoglycemia protocol is in order. Thank you, Dr. Warner, for the courtesy of this consultation. Werner Barth M.D. DR: GLEN JOB#: [id number] CC:
[2019-09-10 20:00] VITALS: BP 154/80
[2019-09-10] MEDS: Atorvastatin 20mg tab ORAL SCH (20:37)
[2019-09-10] MEDS: Bisacodyl EC 5mg tab ORAL SCH (20:37)
--- NOTE | 2019-09-10 20:53 | General Progress Note ---
Assessment/Plan Problem List: (1) Sepsis ICD Codes: A41.9 - Sepsis, unspecified organism SNOMED: 70444700 Qualifiers: Qualified Codes: A41.9 - Sepsis, unspecified organism (2) Renal failure ICD Codes: N19 - Unspecified kidney failure SNOMED: 27295742 Qualifiers: Qualified Codes: N17.9 - Acute kidney failure, unspecified (3) Dehydration ICD Codes: E86.0 - Dehydration SNOMED: 46683130 (4) UTI (urinary tract infection) ICD Codes: N39.0 - Urinary tract infection, site not specified SNOMED: 79948509 Qualifiers: Qualified Codes: N39.0 - Urinary tract infection, site not specified (5) Fever ICD Codes: R50.9 - Fever, unspecified SNOMED: 513234171 Qualifiers: Qualified Codes: R50.9 - Fever, unspecified (6) Suspected 2019 novel coronavirus infection ICD Codes: Z20.828 - Contact with and (suspected) exposure to other viral communicable diseases SNOMED: 329646758 (7) Renal failure (ARF), acute on chronic ICD Codes: N17.9 - Acute kidney failure, unspecified; N18.9 - Chronic kidney disease, unspecified SNOMED: 105543292 Assessment/Plan: covid positive pna resp insuff dehydration uti hypoxia elevated d dimer arf Subjective ROS Limited/Unobtainable: Yes Allergies: Coded Allergies: No Known Allergies (Unverified , 09/08/19) Objective Last 24 Hour Vital Signs Date Time Temp Pulse Resp B/P (MAP) Pulse Ox O2 Delivery O2 Flow Rate FiO2 09/10/19 20:37 86 154/80 09/10/19 16:00 76 09/10/19 16:00 97.5 87 18 156/84 (108) 100 09/10/19 15:04 153/75 09/10/19 12:00 51 09/10/19 12:00 97.7 71 20 153/75 (101) 96 09/10/19 09:00 Nasal Cannula 2.0 09/10/19 08:00 86 09/10/19 08:00 97.9 68 18 130/68 (88) 97 09/10/19 04:00 86 09/10/19 04:00 97.5 55 18 158/70 (99) 100 7/16/20 01:58 51 09/10/19 00:00 97.5 54 18 122/68 (86) 100 09/10/19 00:00 51 09/09/19 21:00 Nasal Cannula 3.0 Intake and Output 09/09/19 09/10/19 18:59 06:59 Intake Total 840 ml 240 ml Output Total 400 ml 600 ml Balance 440 ml -360 ml Intake Oral 240 ml 240 ml IV Total 600 ml Output Urine Total 400 ml 600 ml Laboratory Tests 09/10/19 03:30: Urine Eosinophils None seen 09/10/19 08:40: White Blood Count 16.4H, Red Blood Count 4.22L, Hemoglobin 14.0L, Hematocrit 42.1, Mean Corpuscular Volume 100H, Mean Corpuscular Hemoglobin 33.2H, Mean Corpuscular Hemoglobin Concent 33.3, Red Cell Distribution Width 10.8L, Platelet Count 193, Mean Platelet Volume 7.7, Neutrophils (%) (Auto) , Lymphocytes (%) (Auto) , Monocytes (%) (Auto) , Eosinophils (%) (Auto) , Basophils (%) (Auto) , Differential Total Cells Counted 100, Neutrophils % ( Manual) 89H, Lymphocytes % (Manual) 9L, Monocytes % (Manual) 2, Eosinophils % ( Manual) 0, Basophils % (Manual) 0, Band Neutrophils 0, Platelet Estimate Adequate, Platelet Morphology Normal, Macrocytosis 1+, D-Dimer 27.71H, Sodium Level 141, Potassium Level 3.9, Chloride Level 107, Carbon Dioxide Level 24, Anion Gap 10, Blood Urea Nitrogen 33H, Creatinine 1.9H, Estimat Glomerular Filtration Rate 41.9, Glucose Level 208#H, Uric Acid 7.2, Calcium Level 7.9L, Phosphorus Level 2.9, Magnesium Level 1.9, Total Bilirubin 0.9, Aspartate Amino Transf (AST/SGOT) 25, Alanine Aminotransferase (ALT/SGPT) 30, Alkaline Phosphatase 68, Troponin I 0.187H, C-Reactive Protein, Quantitative 0.7, Pro-B- Type Natriuretic Peptide 841H, Total Protein 6.9, Albumin 3.1L, Globulin 3.8, Albumin/Globulin Ratio 0.8L, Triglycerides Level 161H, Cholesterol Level 134, LDL Cholesterol 78, HDL Cholesterol 29L, Cholesterol/HDL Ratio 4.6H, Thyroid Stimulating Hormone (TSH) 0.439 09/10/19 13:13: POC Whole Blood Glucose 201H 09/10/19 16:49: POC Whole Blood Glucose 166H 09/10/19 20:42: POC Whole Blood Glucose 178H Height (Feet): 6 Height (Inches): 0.00 Weight (Pounds): 210 Julia Warner MD Sep 10, 2019 20:53
[2019-09-10] MEDS ORDERED: cefTRIAXone 1 GM in NS 55 ML IVPB SCH (21:00)
[2019-09-11] VITALS (7 sets, daily range): BP systolic 95–131; BP diastolic 50–77
[2019-09-11] MEDS: Acetaminophen 500mg (ES) tab ORAL PRN ×2 (00:35→14:30)
[2019-09-11] MEDS: sitaGLIPtin 50mg tab ORAL SCH (06:30)
[2019-09-11] MEDS: Nateglinide 60mg tab ORAL SCH ×3 (06:30→16:43)
[2019-09-11] MEDS: NovoLOG Insulin Flexpen SUBQ SCH ×4 (06:39→21:00)
--- NOTE | 2019-09-11 06:40 | General Progress Note ---
Assessment/Plan Problem List: (1) Diabetes mellitus out of control ICD Codes: E11.65 - Type 2 diabetes mellitus with hyperglycemia SNOMED: 30014802, 290110524 (2) Suspected 2019 novel coronavirus infection ICD Codes: Z20.828 - Contact with and (suspected) exposure to other viral communicable diseases SNOMED: 026212914 (3) Sepsis ICD Codes: A41.9 - Sepsis, unspecified organism SNOMED: 33472442 Qualifiers: Qualified Codes: A41.9 - Sepsis, unspecified organism (4) Dehydration ICD Codes: E86.0 - Dehydration SNOMED: 70392752 (5) Renal failure ICD Codes: N19 - Unspecified kidney failure SNOMED: 55096543 Qualifiers: Qualified Codes: N17.9 - Acute kidney failure, unspecified (6) UTI (urinary tract infection) ICD Codes: N39.0 - Urinary tract infection, site not specified SNOMED: 01001246 Qualifiers: Qualified Codes: N39.0 - Urinary tract infection, site not specified (7) Altered level of consciousness ICD Codes: R40.4 - Transient alteration of awareness SNOMED: 8391276 (8) Renal failure (ARF), acute on chronic ICD Codes: N17.9 - Acute kidney failure, unspecified; N18.9 - Chronic kidney disease, unspecified SNOMED: 421572945 (9) Fever ICD Codes: R50.9 - Fever, unspecified SNOMED: 317767912 Qualifiers: Qualified Codes: R50.9 - Fever, unspecified Assessment/Plan: continue Januvia 50 mg daily continue Starlix 60 mg ac tid continue Novolog sliding scale ac / hs hypoglycemic protocol in order Subjective ROS Limited/Unobtainable: Yes Allergies: Coded Allergies: No Known Allergies (Unverified , 09/08/19) Subjective events noted Item Value Date Time Bedside Blood Glucose 170 mg/dl H 09/11/19 0630 Bedside Blood Glucose 178 mg/dl H 09/10/19 2100 Bedside Blood Glucose 166 mg/dl H 09/10/19 1652 Bedside Blood Glucose 201 mg/dl H 09/10/19 1130 Bedside Blood Glucose 180 mg/dl H 09/10/19 0636 Objective Last 24 Hour Vital Signs Date Time Temp Pulse Resp B/P (MAP) Pulse Ox O2 Delivery O2 Flow Rate FiO2 09/11/19 04:00 97.3 62 18 131/77 (95) 97 09/11/19 04:00 64 09/11/19 00:00 66 09/11/19 00:00 97.9 72 18 123/77 (92) 96 09/10/19 21:00 Nasal Cannula 3.0 09/10/19 20:37 86 154/80 09/10/19 20:00 97.8 86 20 154/80 (104) 96 09/10/19 20:00 80 09/10/19 16:00 76 09/10/19 16:00 97.5 87 18 156/84 (108) 100 09/10/19 15:04 153/75 09/10/19 12:00 51 09/10/19 12:00 97.7 71 20 153/75 (101) 96 09/10/19 09:00 Nasal Cannula 2.0 09/10/19 08:00 86 09/10/19 08:00 97.9 68 18 130/68 (88) 97 Intake and Output 09/10/19 09/11/19 19:00 07:00 Intake Total 1260 ml 756.25 ml Output Total 1300 ml 800 ml Balance -40 ml -43.75 ml Intake Oral 360 ml IV Total 900 ml 756.25 ml Output Urine Total 1300 ml 800 ml # Voids 1 # Bowel Movements 1 Laboratory Tests 09/10/19 08:40: White Blood Count 16.4H, Red Blood Count 4.22L, Hemoglobin 14.0L, Hematocrit 42.1, Mean Corpuscular Volume 100H, Mean Corpuscular Hemoglobin 33.2H, Mean Corpuscular Hemoglobin Concent 33.3, Red Cell Distribution Width 10.8L, Platelet Count 193, Mean Platelet Volume 7.7, Neutrophils (%) (Auto) , Lymphocytes (%) (Auto) , Monocytes (%) (Auto) , Eosinophils (%) (Auto) , Basophils (%) (Auto) , Differential Total Cells Counted 100, Neutrophils % ( Manual) 89H, Lymphocytes % (Manual) 9L, Monocytes % (Manual) 2, Eosinophils % ( Manual) 0, Basophils % (Manual) 0, Band Neutrophils 0, Platelet Estimate Adequate, Platelet Morphology Normal, Macrocytosis 1+, D-Dimer 27.71H, Sodium Level 141, Potassium Level 3.9, Chloride Level 107, Carbon Dioxide Level 24, Anion Gap 10, Blood Urea Nitrogen 33H, Creatinine 1.9H, Estimat Glomerular Filtration Rate 41.9, Glucose Level 208#H, Uric Acid 7.2, Calcium Level 7.9L, Phosphorus Level 2.9, Magnesium Level 1.9, Total Bilirubin 0.9, Aspartate Amino Transf (AST/SGOT) 25, Alanine Aminotransferase (ALT/SGPT) 30, Alkaline Phosphatase 68, Troponin I 0.187H, C-Reactive Protein, Quantitative 0.7, Pro-B- Type Natriuretic Peptide 841H, Total Protein 6.9, Albumin 3.1L, Globulin 3.8, Albumin/Globulin Ratio 0.8L, Triglycerides Level 161H, Cholesterol Level 134, LDL Cholesterol 78, HDL Cholesterol 29L, Cholesterol/HDL Ratio 4.6H, Thyroid Stimulating Hormone (TSH) 0.439 09/10/19 13:13: POC Whole Blood Glucose 201H 09/10/19 16:49: POC Whole Blood Glucose 166H 09/10/19 20:42: POC Whole Blood Glucose 178H 09/11/19 04:30: Urine Eosinophils [Pending] 09/11/19 06:24: POC Whole Blood Glucose 170H Height (Feet): 6 Height (Inches): 0.00 Weight (Pounds): 210 General Appearance: no apparent distress Neck: normal alignment Cardiovascular: normal rate Respiratory/Chest: decreased breath sounds Abdomen: normal bowel sounds Objective Current Medications Medications (Trade) Dose Ordered Sig/Karyna Route PRN Reason Start Time Stop Time Status Last Admin Dose Admin Acetaminophen (Tylenol) 500 mg Q4H PRN ORAL Mild Pain (Pain Scale 1-3) 09/09/19 02:00 10/09/19 01:59 09/11/19 00:35 Aspirin (ASA) 81 mg DAILY ORAL 09/09/19 10:30 10/24/19 10:29 09/10/19 08:25 Atorvastatin Calcium (Lipitor) 20 mg BEDTIME ORAL 09/10/19 21:00 12/09/19 20:59 09/10/19 20:37 Bisacodyl (Dulcolax) 10 mg QHS ORAL 09/10/19 21:00 12/09/19 20:59 09/10/19 20:37 Ceftriaxone Sodium 1 gm/ Sodium Chloride 55 ml @ 110 mls/hr QHS IVPB 09/10/19 21:00 09/15/19 20:59 09/10/19 20:37 Dextrose (Dextrose 50%) 25 ml Q30M PRN IV Hypoglycemia 09/09/19 17:30 12/08/19 17:29 Dextrose (Dextrose 50%) 50 ml Q30M PRN IV Hypoglycemia 09/09/19 17:30 12/08/19 17:29 Docusate Sodium (Colace) 100 mg THREE TIMES A DAY ORAL 09/09/19 13:00 10/09/19 12:59 09/10/19 17:37 Enoxaparin Sodium (Lovenox) 100 mg Q24H SUBQ 09/09/19 09:00 12/08/19 08:59 09/10/19 08:27 Fish Oil (Fish Oil) 1,000 mg BID ORAL 09/10/19 18:00 10/10/19 17:59 09/10/19 17:37 Hydralazine HCl (Apresoline) 25 mg Q4H PRN ORAL BP over 160 systolic 09/09/19 10:00 12/08/19 09:59 Insulin Aspart (NovoLOG) BEFORE MEALS AND HS SUBQ 09/09/19 21:00 12/08/19 20:59 09/10/19 20:51 Magnesium Hydroxide (Mom) 30 ml Q4H PRN ORAL Constipation 09/10/19 17:15 10/10/19 17:14 09/10/19 21:48 Metoprolol Tartrate (Lopressor) 25 mg Q12HR ORAL 09/10/19 21:00 12/09/19 20:59 09/10/19 20:37 Nateglinide (Starlix) 60 mg TIAC ORAL 09/11/19 06:30 10/11/19 06:29 09/11/19 06:30 Nitroglycerin (Ntg) 1 patch Q24H TDERMAL 09/10/19 13:30 10/10/19 13:29 09/10/19 15:04 Pantoprazole (Protonix) 40 mg EVERY 12 HOURS ORAL 09/09/19 21:00 10/09/19 20:59 09/10/19 20:37 Sennosides (Senokot) 8.6 mg DAILY ORAL 09/11/19 09:00 10/11/19 08:59 Sitagliptin Phosphate (Januvia) 50 mg ACBREAKFAST ORAL 09/11/19 06:30 10/11/19 06:29 09/11/19 06:30 Sodium Chloride 1,000 ml @ 75 mls/hr [id number] IV 09/09/19 10:00 10/09/19 09:59 09/11/19 01:55 Werner Barth MD Sep 11, 2019 06:40
--- NOTE | 2019-09-11 08:56 | Hematology/Onc Progress Note ---
Assessment/Plan Assessment/Plan Assessment and Recs # Elevated didmer in the setting of ALOC, sepsis, r./o covid19 --> r/o underlying infection, imaging reviewed --> has been started initially on heparin gtt, now on lovenox sq --> duplex lower extremity ordered, wilian Rn --> pulm eval prn basis # Leukocytosis r/o underlying infection --> may also be elevated due to been given steriods # Dehydration --> goal of euvolemia --> ivfs started # UTI, Urine positive for UTI -> abx as per id # BUN/creatinine elevated. Lactic 2.5. # Hypernatremia with a Na 147, --> ivfs started # Dvt ppx lovenox Appreciate consultation and wilian MOFFETT Subjective Constitutional: Denies: no symptoms, chills, fever, malaise, weakness, other HEENT: Denies: no symptoms, eye pain, blurred vision, tearing, double vision, ear pain, ear discharge, nose pain, nose congestion, throat pain, throat swelling, mouth pain, mouth swelling, other Cardiovascular: Denies: no symptoms, chest pain, edema, irregular heart rate, lightheadedness, palpitations, syncope, other Gastrointestinal/Abdominal: Denies: no symptoms, abdomen distended, abdominal pain, black stools, tarry stools, blood in stool, constipated, diarrhea, difficulty swallowing, nausea, poor appetite, poor fluid intake, rectal bleeding , vomiting, other Genitourinary: Denies: no symptoms, burning, discharge, frequency, flank pain, hematuria, incontinence, pain, urgency, other Neurologic/Psychiatric: Denies: no symptoms, anxiety, depressed, emotional problems, headache, numbness, paresthesia, pre-existing deficit, seizure, tingling, tremors, weakness, other Endocrine: Denies: no symptoms, excessive sweating, flushing, intolerance to cold, intolerance to heat, increased hunger, increased thirst, increased urine, unexplained weight gain, unexplained weight loss, other Allergies: Coded Allergies: No Known Allergies (Unverified , 09/08/19) Subjective 09/09 meds reviewed, no bleeding, labs noted, altered, on ctx abx 09/10 no night sweats, meds reviewed, no bleeding, wilian rn, duplex ordered Objective Objective Current Medications Medications (Trade) Dose Ordered Sig/Karyna Route PRN Reason Start Time Stop Time Status Last Admin Dose Admin Acetaminophen (Tylenol) 500 mg Q4H PRN ORAL Mild Pain (Pain Scale 1-3) 09/09/19 02:00 10/09/19 01:59 09/11/19 00:35 Aspirin (ASA) 81 mg DAILY ORAL 09/09/19 10:30 10/24/19 10:29 09/10/19 08:25 Atorvastatin Calcium (Lipitor) 20 mg BEDTIME ORAL 09/10/19 21:00 12/09/19 20:59 09/10/19 20:37 Bisacodyl (Dulcolax) 10 mg QHS ORAL 09/10/19 21:00 12/09/19 20:59 09/10/19 20:37 Ceftriaxone Sodium 1 gm/ Sodium Chloride 55 ml @ 110 mls/hr QHS IVPB 09/10/19 21:00 09/15/19 20:59 09/10/19 20:37 Dextrose (Dextrose 50%) 25 ml Q30M PRN IV Hypoglycemia 09/09/19 17:30 12/08/19 17:29 Dextrose (Dextrose 50%) 50 ml Q30M PRN IV Hypoglycemia 09/09/19 17:30 12/08/19 17:29 Docusate Sodium (Colace) 100 mg THREE TIMES A DAY ORAL 09/09/19 13:00 10/09/19 12:59 09/10/19 17:37 Enoxaparin Sodium (Lovenox) 100 mg Q24H SUBQ 09/09/19 09:00 12/08/19 08:59 09/10/19 08:27 Fish Oil (Fish Oil) 1,000 mg BID ORAL 09/10/19 18:00 10/10/19 17:59 09/10/19 17:37 Hydralazine HCl (Apresoline) 25 mg Q4H PRN ORAL BP over 160 systolic 09/09/19 10:00 12/08/19 09:59 Insulin Aspart (NovoLOG) BEFORE MEALS AND HS SUBQ 09/09/19 21:00 12/08/19 20:59 09/11/19 06:39 Magnesium Hydroxide (Mom) 30 ml Q4H PRN ORAL Constipation 09/10/19 17:15 10/10/19 17:14 7/16/20 21:48 Metoprolol Tartrate (Lopressor) 25 mg Q12HR ORAL 09/10/19 21:00 12/09/19 20:59 09/10/19 20:37 Nateglinide (Starlix) 60 mg TIAC ORAL 09/11/19 06:30 10/11/19 06:29 09/11/19 06:30 Nitroglycerin (Ntg) 1 patch Q24H TDERMAL 09/10/19 13:30 10/10/19 13:29 09/10/19 15:04 Pantoprazole (Protonix) 40 mg EVERY 12 HOURS ORAL 09/09/19 21:00 10/09/19 20:59 09/10/19 20:37 Sennosides (Senokot) 8.6 mg DAILY ORAL 09/11/19 09:00 10/11/19 08:59 Sitagliptin Phosphate (Januvia) 50 mg ACBREAKFAST ORAL 09/11/19 06:30 10/11/19 06:29 09/11/19 06:30 Sodium Chloride 1,000 ml @ 75 mls/hr [id number] IV 09/09/19 10:00 10/09/19 09:59 09/11/19 01:55 Last 24 Hour Vital Signs Date Time Temp Pulse Resp B/P (MAP) Pulse Ox O2 Delivery O2 Flow Rate FiO2 09/11/19 08:23 Room Air 09/11/19 08:00 97.1 71 20 110/60 (77) 98 09/11/19 04:00 97.3 62 18 131/77 (95) 97 09/11/19 04:00 64 09/11/19 00:00 66 09/11/19 00:00 97.9 72 18 123/77 (92) 96 09/10/19 21:00 Nasal Cannula 3.0 09/10/19 20:37 86 154/80 09/10/19 20:00 97.8 86 20 154/80 (104) 96 09/10/19 20:00 80 09/10/19 16:00 76 09/10/19 16:00 97.5 87 18 156/84 (108) 100 09/10/19 15:04 153/75 09/10/19 12:00 51 09/10/19 12:00 97.7 71 20 153/75 (101) 96 09/10/19 09:00 Nasal Cannula 2.0 09/10/19 08:00 86 09/10/19 08:00 97.9 68 18 130/68 (88) 97 09/10/19 04:00 86 09/10/19 04:00 97.5 55 18 158/70 (99) 100 09/10/19 01:58 51 09/10/19 00:00 97.5 54 18 122/68 (86) 100 09/10/19 00:00 51 09/09/19 21:00 Nasal Cannula 3.0 09/09/19 20:00 98.1 57 17 135/79 (97) 98 09/09/19 20:00 61 09/09/19 16:00 66 09/09/19 16:00 97.5 68 18 128/62 (84) 98 09/09/19 12:00 97.9 73 20 130/64 (86) 99 09/09/19 12:00 74 09/09/19 09:00 Nasal Cannula 3.0 Intake and Output 09/10/19 09/11/19 19:00 07:00 Intake Total 1260 ml 756.25 ml Output Total 1300 ml 800 ml Balance -40 ml -43.75 ml Intake Oral 360 ml IV Total 900 ml 756.25 ml Output Urine Total 1300 ml 800 ml # Voids 1 # Bowel Movements 1 Labs Test 09/08/19 17:55 09/08/19 18:35 09/08/19 21:50 09/09/19 06:24 White Blood Count 12.3 K/UL (4.8-10.8) 15.0 K/UL (4.8-10.8) Red Blood Count 4.74 M/UL (4.70-6.10) 4.38 M/UL (4.70-6.10) Hemoglobin 15.4 G/DL (14.2-18.0) 14.5 G/DL (14.2-18.0) Hematocrit 48.1 % (42.0-52.0) 44.7 % (42.0-52.0) Mean Corpuscular Volume 102 FL (80-99) 102 FL (80-99) Mean Corpuscular Hemoglobin 32.5 PG (27.0-31.0) 33.1 PG (27.0-31.0) Mean Corpuscular Hemoglobin Concent 32.0 G/DL (32.0-36.0) 32.4 G/DL (32.0-36.0) Red Cell Distribution Width 11.8 % (11.6-14.8) 11.1 % (11.6-14.8) Platelet Count 207 K/UL (150-450) 183 K/UL (150-450) Mean Platelet Volume 7.0 FL (6.5-10.1) 6.1 FL (6.5-10.1) Neutrophils (%) (Auto) 78.8 % (45.0-75.0) % (45.0-75.0) Lymphocytes (%) (Auto) 8.6 % (20.0-45.0) % (20.0-45.0) Monocytes (%) (Auto) 11.8 % (1.0-10.0) % (1.0-10.0) Eosinophils (%) (Auto) 0.0 % (0.0-3.0) % (0.0-3.0) Basophils (%) (Auto) 0.8 % (0.0-2.0) % (0.0-2.0) Erythrocyte Sedimentation Rate 75 MM/HR (0-20) Prothrombin Time 13.5 SEC (9.30-11.50) Prothromb Time International Ratio 1.2 (0.9-1.1) Activated Partial Thromboplast Time 26 SEC (23-33) D-Dimer > 35.20 mg/L FEU Sodium Level 147 MMOL/L (136-145) 143 MMOL/L (136-145) Potassium Level 4.1 MMOL/L (3.5-5.1) 4.8 MMOL/L (3.5-5.1) Chloride Level 109 MMOL/L (98-107) 110 MMOL/L (98-107) Carbon Dioxide Level 21 MMOL/L (21-32) 19 MMOL/L (21-32) Anion Gap 17 mmol/L (5-15) 14 mmol/L (5-15) Blood Urea Nitrogen 52 mg/dL (7-18) 43 mg/dL (7-18) Creatinine 3.8 MG/DL (0.55-1.30) 2.8 MG/DL (0.55-1.30) Estimat Glomerular Filtration Rate 15.6 mL/min (>60) 26.8 mL/min (>60) Glucose Level 310 MG/DL (74-106) 326 MG/DL (74-106) Lactic Acid Level 2.50 mmol/L (0.4-2.0) 1.70 mmol/L (0.66-2.22) Calcium Level 9.6 MG/DL (8.5-10.1) 8.6 MG/DL (8.5-10.1) Total Bilirubin 1.7 MG/DL (0.2-1.0) 1.5 MG/DL (0.2-1.0) Direct Bilirubin 0.3 MG/DL (0.0-0.3) 0.2 MG/DL (0.0-0.3) Aspartate Amino Transf (AST/SGOT) 64 U/L (15-37) 56 U/L (15-37) Alanine Aminotransferase (ALT/SGPT) 72 U/L (12-78) 59 U/L (12-78) Alkaline Phosphatase 87 U/L (46-116) 73 U/L (46-116) C-Reactive Protein, Quantitative 0.9 mg/dL (0.00-0.90) Pro-B-Type Natriuretic Peptide 482 pg/mL (0-125) Total Protein 8.8 G/DL (6.4-8.2) 7.4 G/DL (6.4-8.2) Albumin 4.3 G/DL (3.4-5.0) 3.1 G/DL (3.4-5.0) Globulin 4.5 g/dL 4.3 g/dL Albumin/Globulin Ratio 1.0 (1.0-2.7) 0.7 (1.0-2.7) Urine Color Yellow Urine Appearance Very cloudy Urine pH 5 (4.5-8.0) Urine Specific [place] 1.025 (1.005-1.035) Urine Protein 3+ (NEGATIVE) Urine Glucose (UA) 1+ (NEGATIVE) Urine Ketones 1+ (NEGATIVE) Urine Blood 5+ (NEGATIVE) Urine Nitrite Negative (NEGATIVE) Urine Bilirubin Negative (NEGATIVE) Urine Urobilinogen 1 MG/DL (0.0-1.0) Urine Leukocyte Esterase 3+ (NEGATIVE) Urine RBC 5-10 /HPF (0 - 0) Urine WBC Tntc /HPF (0 - 0) Urine Squamous Epithelial Cells Occasional /LPF Urine Bacteria Many /HPF (NONE) Differential Total Cells Counted 100 Neutrophils % (Manual) 85 % (45-75) Lymphocytes % (Manual) 14 % (20-45) Monocytes % (Manual) 1 % (1-10) Eosinophils % (Manual) 0 % (0-3) Basophils % (Manual) 0 % (0-2) Band Neutrophils 0 % (0-8) Platelet Estimate Adequate Platelet Morphology Normal Macrocytosis 1+ Hemoglobin A1c 7.5 % (4.3-6.0) Test 09/09/19 08:50 09/09/19 10:37 09/10/19 03:30 09/10/19 08:40 Uric Acid 9.2 MG/DL (2.6-7.2) 7.2 MG/DL (2.6-7.2) Phosphorus Level 1.6 MG/DL (2.5-4.9) 2.9 MG/DL (2.5-4.9) Magnesium Level 2.0 MG/DL (1.8-2.4) 1.9 MG/DL (1.8-2.4) Gamma Glutamyl Transpeptidase 20 U/L (5-85) Total Creatine Kinase 628 U/L (26-308) C-Reactive Protein, Quantitative 1.0 mg/dL (0.00-0.90) 0.7 mg/dL (0.00-0.90) Pro-B-Type Natriuretic Peptide 1370 pg/mL (0-125) 841 pg/mL (0-125) Thyroid Stimulating Hormone (TSH) 0.379 uiU/mL (0.358-3.740) 0.439 uiU/mL (0.358-3.740) Urine Random Sodium 46 mmol/L (20-110) Urine Eosinophils None seen (NONE SEEN) White Blood Count 16.4 K/UL (4.8-10.8) Red Blood Count 4.22 M/UL (4.70-6.10) Hemoglobin 14.0 G/DL (14.2-18.0) Hematocrit 42.1 % (42.0-52.0) Mean Corpuscular Volume 100 FL (80-99) Mean Corpuscular Hemoglobin 33.2 PG (27.0-31.0) Mean Corpuscular Hemoglobin Concent 33.3 G/DL (32.0-36.0) Red Cell Distribution Width 10.8 % (11.6-14.8) Platelet Count 193 K/UL (150-450) Mean Platelet Volume 7.7 FL (6.5-10.1) Neutrophils (%) (Auto) % (45.0-75.0) Lymphocytes (%) (Auto) % (20.0-45.0) Monocytes (%) (Auto) % (1.0-10.0) Eosinophils (%) (Auto) % (0.0-3.0) Basophils (%) (Auto) % (0.0-2.0) Differential Total Cells Counted 100 Neutrophils % (Manual) 89 % (45-75) Lymphocytes % (Manual) 9 % (20-45) Monocytes % (Manual) 2 % (1-10) Eosinophils % (Manual) 0 % (0-3) Basophils % (Manual) 0 % (0-2) Band Neutrophils 0 % (0-8) Platelet Estimate Adequate Platelet Morphology Normal Macrocytosis 1+ D-Dimer 27.71 mg/L FEU (0.00-0.49) Sodium Level 141 MMOL/L (136-145) Potassium Level 3.9 MMOL/L (3.5-5.1) Chloride Level 107 MMOL/L (98-107) Carbon Dioxide Level 24 MMOL/L (21-32) Anion Gap 10 mmol/L (5-15) Blood Urea Nitrogen 33 mg/dL (7-18) Creatinine 1.9 MG/DL (0.55-1.30) Estimat Glomerular Filtration Rate 41.9 mL/min (>60) Glucose Level 208 MG/DL (74-106) Calcium Level 7.9 MG/DL (8.5-10.1) Total Bilirubin 0.9 MG/DL (0.2-1.0) Aspartate Amino Transf (AST/SGOT) 25 U/L (15-37) Alanine Aminotransferase (ALT/SGPT) 30 U/L (12-78) Alkaline Phosphatase 68 U/L (46-116) Troponin I 0.187 ng/mL (0.000-0.056) Total Protein 6.9 G/DL (6.4-8.2) Albumin 3.1 G/DL (3.4-5.0) Globulin 3.8 g/dL Albumin/Globulin Ratio 0.8 (1.0-2.7) Triglycerides Level 161 MG/DL (30-150) Cholesterol Level 134 MG/DL (< 200) LDL Cholesterol 78 mg/dL (<100) HDL Cholesterol 29 MG/DL (40-60) Cholesterol/HDL Ratio 4.6 (3.3-4.4) Test 09/10/19 13:13 09/10/19 16:49 09/10/19 20:42 09/11/19 04:30 POC Whole Blood Glucose 201 MG/DL (74-106) 166 MG/DL (74-106) 178 MG/DL (74-106) Urine Eosinophils None seen (NONE SEEN) Test 09/11/19 06:24 09/11/19 07:55 POC Whole Blood Glucose 170 MG/DL (74-106) Height (Feet): 6 Height (Inches): 0.00 Weight (Pounds): 210 Objective General: no apparent distress, GCS 15, non-toxic, lethargic HEENT: normal ENT inspection Neck: normal inspection Respiratory: chest non-tender, lungs clear, normal breath sounds, speaking full sentences Cardiovascular: tachycardia Gastrointestinal: normal bowel sounds, non tender Genitourinary: no CVA tenderness Musculoskeletal: normal inspection Neurologic: other - AMS Psychiatric: other - AMS Skin: other - see nrusing notes Lymphatic: normal inspection Lewis Bourne MD Sep 11, 2019 08:56
[2019-09-11 09:14] LABS: ANION GAP 10 mmol/L (5-15); BLOOD UREA NITROGEN 25 mg/dL (7-18); CARBON DIOXIDE 25 MMOL/L (21-32); CHLORIDE 104 MMOL/L (98-107); CREATININE 1.6 MG/DL (0.55-1.30); POTASSIUM 3.4 MMOL/L (3.5-5.1); SODIUM 139 MMOL/L (136-145)
[2019-09-11] MEDS: Aspirin Baby 81mg ORAL SCH (09:16)
[2019-09-11] MEDS: Sennosides 8.6mg tab ORAL SCH (09:16)
[2019-09-11 09:18] LABS: ALANINE AMINOTRANSFERASE 27 U/L (12-78); ALBUMIN/GLOBULIN RATIO 0.8 (1.0-2.7); ALKALINE PHOSPHATASE 67 U/L (46-116); ASPARTATE AMINO TRANSFERASE 10 U/L (15-37); BILIRUBIN,TOTAL 0.8 MG/DL (0.2-1.0); PHOSPHORUS 2.4 MG/DL (2.5-4.9)
[2019-09-11] MEDS: Enoxaparin 100mg Inj SUBQ SCH (09:18)
[2019-09-11] MEDS: Docusate 100mg cap ORAL SCH ×3 (09:18→16:55)
[2019-09-11 09:28] LABS: CHOLESTEROL 137 MG/DL (< 200); HDL CHOLESTEROL 26 MG/DL (40-60); TRIGLYCERIDES 257 MG/DL (30-150)
--- NOTE | 2019-09-11 10:33 | Infectious Diseases Prog Note ---
Assessment/Plan Assessment/Plan IMPRESSION: Sepsis improving UTI with E. coli Positive blood culture likely contamination Negative COVID19 test, Acute renal failure, Diabetes with hyperglycemia, Hypertension, history of CVA and left hemiparesis. Cardiac ischemia RECOMMENDATION: Continue with ceftriaxone. We will follow up the cultures. Subjective ROS Limited/Unobtainable: Yes Constitutional: Denies: fever Respiratory: Reports: other - hiccups Gastrointestinal/Abdominal: Reports: diarrhea Genitourinary: Reports: no symptoms Allergies: Coded Allergies: No Known Allergies (Unverified , 09/08/19) Objective Last 24 Hour Vital Signs Date Time Temp Pulse Resp B/P (MAP) Pulse Ox O2 Delivery O2 Flow Rate FiO2 09/11/19 09:17 71 110/60 09/11/19 08:23 Room Air 09/11/19 08:00 97.1 71 20 110/60 (77) 98 09/11/19 04:00 97.3 62 18 131/77 (95) 97 09/11/19 04:00 64 09/11/19 00:00 66 09/11/19 00:00 97.9 72 18 123/77 (92) 96 09/10/19 21:00 Nasal Cannula 3.0 09/10/19 20:37 86 154/80 09/10/19 20:00 97.8 86 20 154/80 (104) 96 09/10/19 20:00 80 09/10/19 16:00 76 09/10/19 16:00 97.5 87 18 156/84 (108) 100 09/10/19 15:04 153/75 09/10/19 12:00 51 09/10/19 12:00 97.7 71 20 153/75 (101) 96 Height (Feet): 6 Height (Inches): 0.00 Weight (Pounds): 210 General Appearance: no acute distress HEENT: mucous membranes moist Respiratory/Chest: lungs clear Cardiovascular: normal rate Abdomen: soft, non tender Extremities: no edema Neurologic/Psychiatric: alert, responsive Microbiology Date/Time Source Procedure Growth Status 09/08/19 17:55 Blood Blood Culture - Preliminary Staphylococcus Sp Coag Neg Resulted 09/08/19 17:40 Blood Blood Culture - Preliminary Staphylococcus Sp Coag Neg Resulted 09/08/19 19:00 Nasopharynx Coronavirus COVID-19 PCR (ALEXANDRA) - Final Complete 09/08/19 18:35 Urine,Clean Catch Urine Culture - Final Escherichia Coli Complete Laboratory Tests Test 09/10/19 13:13 09/10/19 16:49 09/10/19 20:42 09/11/19 04:30 POC Whole Blood Glucose 201 MG/DL (74-106) H 166 MG/DL (74-106) H 178 MG/DL (74-106) H Urine Eosinophils None seen (NONE SEEN) Test 09/11/19 06:24 09/11/19 07:55 POC Whole Blood Glucose 170 MG/DL (74-106) H Sodium Level 139 MMOL/L (136-145) Potassium Level 3.4 MMOL/L (3.5-5.1) L Chloride Level 104 MMOL/L (98-107) Carbon Dioxide Level 25 MMOL/L (21-32) Anion Gap 10 mmol/L (5-15) Blood Urea Nitrogen 25 mg/dL (7-18) H Creatinine 1.6 MG/DL (0.55-1.30) H Estimat Glomerular Filtration Rate 51.1 mL/min (>60) Glucose Level 173 MG/DL (74-106) H Calcium Level 8.0 MG/DL (8.5-10.1) L Phosphorus Level 2.4 MG/DL (2.5-4.9) L Magnesium Level 1.9 MG/DL (1.8-2.4) Total Bilirubin 0.8 MG/DL (0.2-1.0) Aspartate Amino Transf (AST/SGOT) 10 U/L (15-37) L Alanine Aminotransferase (ALT/SGPT) 27 U/L (12-78) Alkaline Phosphatase 67 U/L (46-116) Troponin I 0.071 ng/mL (0.000-0.056) Total Protein 6.6 G/DL (6.4-8.2) Albumin 3.0 G/DL (3.4-5.0) L Globulin 3.6 g/dL Albumin/Globulin Ratio 0.8 (1.0-2.7) L Triglycerides Level 257 MG/DL (30-150) H Cholesterol Level 137 MG/DL (< 200) LDL Cholesterol 74 mg/dL (<100) HDL Cholesterol 26 MG/DL (40-60) L Cholesterol/HDL Ratio 5.3 (3.3-4.4) H Current Medications Medications (Trade) Dose Ordered Sig/Karyna Route PRN Reason Start Time Stop Time Status Last Admin Dose Admin Acetaminophen (Tylenol) 500 mg Q4H PRN ORAL Mild Pain (Pain Scale 1-3) 09/09/19 02:00 10/09/19 01:59 09/11/19 00:35 Aspirin (ASA) 81 mg DAILY ORAL 09/09/19 10:30 10/24/19 10:29 09/11/19 09:16 Atorvastatin Calcium (Lipitor) 20 mg BEDTIME ORAL 09/10/19 21:00 12/09/19 20:59 09/10/19 20:37 Bisacodyl (Dulcolax) 10 mg QHS ORAL 09/10/19 21:00 12/09/19 20:59 09/10/19 20:37 Ceftriaxone Sodium 1 gm/ Sodium Chloride 55 ml @ 110 mls/hr QHS IVPB 09/10/19 21:00 09/15/19 20:59 09/10/19 20:37 Dextrose (Dextrose 50%) 25 ml Q30M PRN IV Hypoglycemia 09/09/19 17:30 12/08/19 17:29 Dextrose (Dextrose 50%) 50 ml Q30M PRN IV Hypoglycemia 09/09/19 17:30 12/08/19 17:29 Docusate Sodium (Colace) 100 mg THREE TIMES A DAY ORAL 09/09/19 13:00 10/09/19 12:59 09/11/19 09:18 Enoxaparin Sodium (Lovenox) 100 mg Q24H SUBQ 09/09/19 09:00 12/08/19 08:59 09/11/19 09:18 Fish Oil (Fish Oil) 1,000 mg BID ORAL 09/10/19 18:00 10/10/19 17:59 09/11/19 09:16 Hydralazine HCl (Apresoline) 25 mg Q4H PRN ORAL BP over 160 systolic 09/09/19 10:00 12/08/19 09:59 Insulin Aspart (NovoLOG) BEFORE MEALS AND HS SUBQ 09/09/19 21:00 12/08/19 20:59 09/11/19 06:39 Magnesium Hydroxide (Mom) 30 ml Q4H PRN ORAL Constipation 09/10/19 17:15 10/10/19 17:14 09/10/19 21:48 Metoprolol Tartrate (Lopressor) 25 mg Q12HR ORAL 09/10/19 21:00 12/09/19 20:59 09/11/19 09:17 Nateglinide (Starlix) 60 mg TIAC ORAL 09/11/19 06:30 10/11/19 06:29 09/11/19 06:30 Nitroglycerin (Ntg) 1 patch Q24H TDERMAL 09/10/19 13:30 10/10/19 13:29 09/10/19 15:04 Pantoprazole (Protonix) 40 mg EVERY 12 HOURS ORAL 09/09/19 21:00 10/09/19 20:59 09/11/19 09:16 Sennosides (Senokot) 8.6 mg DAILY ORAL 09/11/19 09:00 10/11/19 08:59 09/11/19 09:16 Sitagliptin Phosphate (Januvia) 50 mg ACBREAKFAST ORAL 09/11/19 06:30 10/11/19 06:29 09/11/19 06:30 Sodium Chloride 1,000 ml @ 75 mls/hr [id number] IV 09/09/19 10:00 10/09/19 09:59 09/11/19 01:55 Nacho Angulo MD Sep 11, 2019 10:33
--- NOTE | 2019-09-11 11:32 | Diagnostic Imaging Report ---
Indication:Leg pain and swelling Technique: Grayscale and duplex Doppler imaging of the veins in both lower extremities performed in real time utilizing compression and augmentation. Comparison: None Findings: Duplex Doppler interrogation of the veins in both lower extremity is performed from the common femoral vein to the popliteal vein. Normal venous compressibility demonstrated throughout. No thrombus identified. Waveform analysis shows good respiratory phasicity and augmentation. Imaged calf veins appear patent. IMPRESSION: No evidence of deep venous thrombosis involving the visualized veins of the lower extremities.
[2019-09-11] MEDS: Nitroglycerin Patch 0.4mg TDERMAL SCH (12:37)
--- NOTE | 2019-09-11 13:53 | Nephrology Progress Note ---
Assessment/Plan Problem List: (1) Renal failure (ARF), acute on chronic (2) Dehydration (3) Sepsis (4) UTI (urinary tract infection) Assessment This 74-year-old male presented to emergency room with fever, leukocytosis, evidence of UTI/sepsis He has leukocytosis and increased d-dimer, suspected 2019 novel coronavirus infection, however the first test is negative Renal impression: Acute on chronic kidney disease Superimposed dehydration Underlying diabetic nephropathy Diabetes mellitus [id number] Plan Ordered K-Phos IV. Decrease IV fluid to 50 cc an hour. Previously: Add Nitropaste for elevated troponin Add fish oil Slow IV hydration Monitor renal parameters Patient has a Carmen catheter Avoid nephrotoxic's On diabetic friendly diet now Keep the blood pressure and blood sugar in check Per orders Discussed with RN Subjective ROS Limited/Unobtainable: No Constitutional: Reports: malaise Objective Objective Last 24 Hour Vital Signs Date Time Temp Pulse Resp B/P (MAP) Pulse Ox O2 Delivery O2 Flow Rate FiO2 09/11/19 12:37 113/57 09/11/19 12:36 69 113/57 (75) 09/11/19 12:00 64 09/11/19 12:00 97.5 78 20 95/50 (65) 98 09/11/19 09:17 71 110/60 09/11/19 08:23 Room Air 09/11/19 08:00 78 09/11/19 08:00 97.1 71 20 110/60 (77) 98 09/11/19 04:00 97.3 62 18 131/77 (95) 97 09/11/19 04:00 64 09/11/19 00:00 66 09/11/19 00:00 97.9 72 18 123/77 (92) 96 09/10/19 21:00 Nasal Cannula 3.0 09/10/19 20:37 86 154/80 09/10/19 20:00 97.8 86 20 154/80 (104) 96 09/10/19 20:00 80 09/10/19 16:00 76 09/10/19 16:00 97.5 87 18 156/84 (108) 100 09/10/19 15:04 153/75 Intake and Output 09/10/19 09/11/19 19:00 07:00 Intake Total 1260 ml 831.25 ml Output Total 1300 ml 800 ml Balance -40 ml 31.25 ml Intake Oral 360 ml IV Total 900 ml 831.25 ml Output Urine Total 1300 ml 800 ml # Voids 1 # Bowel Movements 1 Current Medications Medications (Trade) Dose Ordered Sig/Karyna Route PRN Reason Start Time Stop Time Status Last Admin Dose Admin Acetaminophen (Tylenol) 500 mg Q4H PRN ORAL Mild Pain (Pain Scale 1-3) 09/09/19 02:00 10/09/19 01:59 09/11/19 00:35 Aspirin (ASA) 81 mg DAILY ORAL 09/09/19 10:30 10/24/19 10:29 09/11/19 09:16 Atorvastatin Calcium (Lipitor) 20 mg BEDTIME ORAL 09/10/19 21:00 12/09/19 20:59 09/10/19 20:37 Bisacodyl (Dulcolax) 10 mg QHS ORAL 09/10/19 21:00 12/09/19 20:59 09/10/19 20:37 Ceftriaxone Sodium 1 gm/ Sodium Chloride 55 ml @ 110 mls/hr QHS IVPB 09/10/19 21:00 09/15/19 20:59 09/10/19 20:37 Dextrose (Dextrose 50%) 25 ml Q30M PRN IV Hypoglycemia 09/09/19 17:30 12/08/19 17:29 Dextrose (Dextrose 50%) 50 ml Q30M PRN IV Hypoglycemia 09/09/19 17:30 12/08/19 17:29 Docusate Sodium (Colace) 100 mg THREE TIMES A DAY ORAL 09/09/19 13:00 10/09/19 12:59 09/11/19 09:18 Enoxaparin Sodium (Lovenox) 100 mg Q24H SUBQ 09/09/19 09:00 12/08/19 08:59 09/11/19 09:18 Fish Oil (Fish Oil) 1,000 mg BID ORAL 09/10/19 18:00 10/10/19 17:59 09/11/19 09:16 Hydralazine HCl (Apresoline) 25 mg Q4H PRN ORAL BP over 160 systolic 09/09/19 10:00 12/08/19 09:59 Insulin Aspart (NovoLOG) BEFORE MEALS AND HS SUBQ 09/09/19 21:00 12/08/19 20:59 09/11/19 06:39 Magnesium Hydroxide (Mom) 30 ml Q4H PRN ORAL Constipation 09/10/19 17:15 10/10/19 17:14 09/10/19 21:48 Metoprolol Tartrate (Lopressor) 25 mg Q12HR ORAL 09/10/19 21:00 12/09/19 20:59 09/11/19 09:17 Nateglinide (Starlix) 60 mg TIAC ORAL 09/11/19 06:30 10/11/19 06:29 09/11/19 06:30 Nitroglycerin (Ntg) 1 patch Q24H TDERMAL 09/10/19 13:30 10/10/19 13:29 09/10/19 15:04 Pantoprazole (Protonix) 40 mg EVERY 12 HOURS ORAL 09/09/19 21:00 10/09/19 20:59 09/11/19 09:16 Sennosides (Senokot) 8.6 mg DAILY ORAL 09/11/19 09:00 10/11/19 08:59 09/11/19 09:16 Sitagliptin Phosphate (Januvia) 50 mg ACBREAKFAST ORAL 09/11/19 06:30 10/11/19 06:29 09/11/19 06:30 Sodium Chloride 1,000 ml @ 75 mls/hr [id number] IV 09/09/19 10:00 10/09/19 09:59 09/11/19 12:37 Laboratory Tests 09/10/19 16:49: POC Whole Blood Glucose 166H 09/10/19 20:42: POC Whole Blood Glucose 178H 09/11/19 04:30: Urine Eosinophils None seen 09/11/19 06:24: POC Whole Blood Glucose 170H 09/11/19 07:55: Sodium Level 139, Potassium Level 3.4L, Chloride Level 104, Carbon Dioxide Level 25, Anion Gap 10, Blood Urea Nitrogen 25H, Creatinine 1.6H, Estimat Glomerular Filtration Rate 51.1, Glucose Level 173H, Calcium Level 8.0L, Phosphorus Level 2.4L, Magnesium Level 1.9, Total Bilirubin 0.8, Aspartate Amino Transf (AST/SGOT) 10L, Alanine Aminotransferase (ALT/SGPT) 27, Alkaline Phosphatase 67, Troponin I 0.071H, Total Protein 6.6, Albumin 3.0L, Globulin 3.6 , Albumin/Globulin Ratio 0.8L, Triglycerides Level 257H, Cholesterol Level 137, LDL Cholesterol 74, HDL Cholesterol 26L, Cholesterol/HDL Ratio 5.3H 09/11/19 11:04: POC Whole Blood Glucose 119H Height (Feet): 6 Height (Inches): 0.00 Weight (Pounds): 210 General Appearance: no apparent distress Cardiovascular: normal rate Respiratory/Chest: decreased breath sounds Abdomen: distended Wild Kraft MD Sep 11, 2019 13:53
--- NOTE | 2019-09-11 14:11 | Cardiac Electrophysiology PN ---
Assessment/Plan Assessment/Plan 1. Hypertension. On Lopressor 25 bid and p.r.n. hydralazine 2. NSTEMI with elevated troponin and Inferolateral ischemia. Denies any chest pain. EF 55%. Patient has first-degree AV block. On Aspirin and Lopressor. Troponin now 0.8 3. Shortness of breath, patient being ruled out for COVID and already started on ceftriaxone. 4. Elevated D-dimer. Lower extremity duplex negative for DVT 5. Renal failure with Cr 1.9 6. Bacteremia and UTI on Ceftriaxone. May need MARILIN DW RN Subjective Subjective Covid is negative. Has first degree AVB. Blood Cx positive and has UTI on Abx Objective Last 24 Hour Vital Signs Date Time Temp Pulse Resp B/P (MAP) Pulse Ox O2 Delivery O2 Flow Rate FiO2 09/11/19 12:37 113/57 09/11/19 12:36 69 113/57 (75) 09/11/19 12:00 64 09/11/19 12:00 97.5 78 20 95/50 (65) 98 09/11/19 09:17 71 110/60 09/11/19 08:23 Room Air 09/11/19 08:00 78 09/11/19 08:00 97.1 71 20 110/60 (77) 98 09/11/19 04:00 97.3 62 18 131/77 (95) 97 09/11/19 04:00 64 09/11/19 00:00 66 09/11/19 00:00 97.9 72 18 123/77 (92) 96 09/10/19 21:00 Nasal Cannula 3.0 09/10/19 20:37 86 154/80 09/10/19 20:00 97.8 86 20 154/80 (104) 96 09/10/19 20:00 80 09/10/19 16:00 76 09/10/19 16:00 97.5 87 18 156/84 (108) 100 09/10/19 15:04 153/75 Intake and Output 09/10/19 09/11/19 19:00 07:00 Intake Total 1260 ml 831.25 ml Output Total 1300 ml 800 ml Balance -40 ml 31.25 ml Intake Oral 360 ml IV Total 900 ml 831.25 ml Output Urine Total 1300 ml 800 ml # Voids 1 # Bowel Movements 1 Laboratory Tests Test 09/10/19 16:49 09/10/19 20:42 09/11/19 04:30 09/11/19 06:24 POC Whole Blood Glucose 166 MG/DL (74-106) H 178 MG/DL (74-106) H 170 MG/DL (74-106) H Urine Eosinophils None seen (NONE SEEN) Test 09/11/19 07:55 09/11/19 11:04 Sodium Level 139 MMOL/L (136-145) Potassium Level 3.4 MMOL/L (3.5-5.1) L Chloride Level 104 MMOL/L (98-107) Carbon Dioxide Level 25 MMOL/L (21-32) Anion Gap 10 mmol/L (5-15) Blood Urea Nitrogen 25 mg/dL (7-18) H Creatinine 1.6 MG/DL (0.55-1.30) H Estimat Glomerular Filtration Rate 51.1 mL/min (>60) Glucose Level 173 MG/DL (74-106) H Calcium Level 8.0 MG/DL (8.5-10.1) L Phosphorus Level 2.4 MG/DL (2.5-4.9) L Magnesium Level 1.9 MG/DL (1.8-2.4) Total Bilirubin 0.8 MG/DL (0.2-1.0) Aspartate Amino Transf (AST/SGOT) 10 U/L (15-37) L Alanine Aminotransferase (ALT/SGPT) 27 U/L (12-78) Alkaline Phosphatase 67 U/L (46-116) Troponin I 0.071 ng/mL (0.000-0.056) Total Protein 6.6 G/DL (6.4-8.2) Albumin 3.0 G/DL (3.4-5.0) L Globulin 3.6 g/dL Albumin/Globulin Ratio 0.8 (1.0-2.7) L Triglycerides Level 257 MG/DL (30-150) H Cholesterol Level 137 MG/DL (< 200) LDL Cholesterol 74 mg/dL (<100) HDL Cholesterol 26 MG/DL (40-60) L Cholesterol/HDL Ratio 5.3 (3.3-4.4) H POC Whole Blood Glucose 119 MG/DL (74-106) H Microbiology Date/Time Source Procedure Growth Status 09/08/19 17:55 Blood Blood Culture - Preliminary Staphylococcus Sp Coag Neg Resulted 09/08/19 17:40 Blood Blood Culture - Preliminary Staphylococcus Sp Coag Neg Resulted 09/08/19 19:00 Nasopharynx Coronavirus COVID-19 PCR ([facility]) - Final Complete 09/08/19 18:35 Urine,Clean Catch Urine Culture - Final Escherichia Coli Complete Objective NECK: No JVD. LUNGS: Clear. CARDIOVASCULAR: Regular S1 and S2 with no gallop or murmur. ABDOMEN: Soft. EXTREMITIES: No pitting edema. Rick Torres MD Sep 11, 2019 14:11
--- NOTE | 2019-09-11 14:18 | Pulmonology Progress Note ---
Subjective ROS Limited/Unobtainable: No Interval Events: None new Constitutional: Denies: fever HEENT: Repors: no symptoms Respiratory: Reports: no symptoms Cardiovascular: Reports: no symptoms Gastrointestinal/Abdominal: Reports: diarrhea Allergies: Coded Allergies: No Known Allergies (Unverified , 09/08/19) Objective Last 24 Hour Vital Signs Date Time Temp Pulse Resp B/P (MAP) Pulse Ox O2 Delivery O2 Flow Rate FiO2 09/11/19 12:37 113/57 09/11/19 12:36 69 113/57 (75) 09/11/19 12:00 64 09/11/19 12:00 97.5 78 20 95/50 (65) 98 09/11/19 09:17 71 110/60 09/11/19 08:23 Room Air 09/11/19 08:00 78 09/11/19 08:00 97.1 71 20 110/60 (77) 98 09/11/19 04:00 97.3 62 18 131/77 (95) 97 09/11/19 04:00 64 09/11/19 00:00 66 09/11/19 00:00 97.9 72 18 123/77 (92) 96 09/10/19 21:00 Nasal Cannula 3.0 09/10/19 20:37 86 154/80 09/10/19 20:00 97.8 86 20 154/80 (104) 96 09/10/19 20:00 80 09/10/19 16:00 76 09/10/19 16:00 97.5 87 18 156/84 (108) 100 09/10/19 15:04 153/75 Intake and Output 09/10/19 09/11/19 19:00 07:00 Intake Total 1260 ml 831.25 ml Output Total 1300 ml 800 ml Balance -40 ml 31.25 ml Intake Oral 360 ml IV Total 900 ml 831.25 ml Output Urine Total 1300 ml 800 ml # Voids 1 # Bowel Movements 1 General Appearance: no acute distress HEENT: normocephalic Respiratory: chest wall non-tender, lungs clear Cardiovascular: normal peripheral pulses Abdomen: normal bowel sounds Microbiology Date/Time Source Procedure Growth Status 09/08/19 17:55 Blood Blood Culture - Preliminary Staphylococcus Sp Coag Neg Resulted 09/08/19 17:40 Blood Blood Culture - Preliminary Staphylococcus Sp Coag Neg Resulted 09/08/19 19:00 Nasopharynx Coronavirus COVID-19 PCR ([facility]A) - Final Complete 09/08/19 18:35 Urine,Clean Catch Urine Culture - Final Escherichia Coli Complete Laboratory Tests 09/10/19 16:49: POC Whole Blood Glucose 166H 09/10/19 20:42: POC Whole Blood Glucose 178H 09/11/19 04:30: Urine Eosinophils None seen 09/11/19 06:24: POC Whole Blood Glucose 170H 09/11/19 07:55: Sodium Level 139, Potassium Level 3.4L, Chloride Level 104, Carbon Dioxide Level 25, Anion Gap 10, Blood Urea Nitrogen 25H, Creatinine 1.6H, Estimat Glomerular Filtration Rate 51.1, Glucose Level 173H, Calcium Level 8.0L, Phosphorus Level 2.4L, Magnesium Level 1.9, Total Bilirubin 0.8, Aspartate Amino Transf (AST/SGOT) 10L, Alanine Aminotransferase (ALT/SGPT) 27, Alkaline Phosphatase 67, Troponin I 0.071H, Total Protein 6.6, Albumin 3.0L, Globulin 3.6 , Albumin/Globulin Ratio 0.8L, Triglycerides Level 257H, Cholesterol Level 137, LDL Cholesterol 74, HDL Cholesterol 26L, Cholesterol/HDL Ratio 5.3H 09/11/19 11:04: POC Whole Blood Glucose 119H Current Medications Medications (Trade) Dose Ordered Sig/Karyna Route PRN Reason Start Time Stop Time Status Last Admin Dose Admin Acetaminophen (Tylenol) 500 mg Q4H PRN ORAL Mild Pain (Pain Scale 1-3) 09/09/19 02:00 10/09/19 01:59 09/11/19 00:35 Aspirin (ASA) 81 mg DAILY ORAL 09/09/19 10:30 10/24/19 10:29 09/11/19 09:16 Atorvastatin Calcium (Lipitor) 20 mg BEDTIME ORAL 09/10/19 21:00 12/09/19 20:59 09/10/19 20:37 Bisacodyl (Dulcolax) 10 mg QHS ORAL 09/10/19 21:00 12/09/19 20:59 09/10/19 20:37 Ceftriaxone Sodium 1 gm/ Sodium Chloride 55 ml @ 110 mls/hr QHS IVPB 09/10/19 21:00 09/15/19 20:59 09/10/19 20:37 Dextrose (Dextrose 50%) 25 ml Q30M PRN IV Hypoglycemia 09/09/19 17:30 12/08/19 17:29 Dextrose (Dextrose 50%) 50 ml Q30M PRN IV Hypoglycemia 09/09/19 17:30 12/08/19 17:29 Docusate Sodium (Colace) 100 mg THREE TIMES A DAY ORAL 09/09/19 13:00 10/09/19 12:59 09/11/19 09:18 Enoxaparin Sodium (Lovenox) 100 mg Q24H SUBQ 09/09/19 09:00 12/08/19 08:59 09/11/19 09:18 Fish Oil (Fish Oil) 1,000 mg BID ORAL 09/10/19 18:00 10/10/19 17:59 09/11/19 09:16 Hydralazine HCl (Apresoline) 25 mg Q4H PRN ORAL BP over 160 systolic 09/09/19 10:00 12/08/19 09:59 Insulin Aspart (NovoLOG) BEFORE MEALS AND HS SUBQ 09/09/19 21:00 12/08/19 20:59 09/11/19 06:39 Magnesium Hydroxide (Mom) 30 ml Q4H PRN ORAL Constipation 09/10/19 17:15 10/10/19 17:14 09/10/19 21:48 Metoprolol Tartrate (Lopressor) 25 mg Q12HR ORAL 09/10/19 21:00 12/09/19 20:59 09/11/19 09:17 Nateglinide (Starlix) 60 mg TIAC ORAL 09/11/19 06:30 10/11/19 06:29 09/11/19 06:30 Nitroglycerin (Ntg) 1 patch Q24H TDERMAL 09/10/19 13:30 10/10/19 13:29 09/10/19 15:04 Pantoprazole (Protonix) 40 mg EVERY 12 HOURS ORAL 09/09/19 21:00 10/09/19 20:59 09/11/19 09:16 Potassium Phosphate 20 mm/ Sodium Chloride 281.6667 ml @ 46.944 m... ONCE ONCE IV 09/11/19 15:00 09/11/19 20:59 Sennosides (Senokot) 8.6 mg DAILY ORAL 09/11/19 09:00 10/11/19 08:59 09/11/19 09:16 Sitagliptin Phosphate (Januvia) 50 mg ACBREAKFAST ORAL 09/11/19 06:30 10/11/19 06:29 09/11/19 06:30 Sodium Chloride 1,000 ml @ 50 mls/hr Q20H IV 09/11/19 14:00 10/11/19 13:59 Assessment/Plan Assessment/Plan IMPRESSION: 1. Altered mental status. 2. UTI. 3. Diabetes mellitus. 4. Hypertension. 5. Renal failure. 6. Elevated D-dimer. DISCUSSION: His inflammatory markers are abnormal. Is negative for COVID 19 pcr On full dose Lovenox Continue broad-spectrum antibiotics. Defer to ID. I will follow carefully. Armand Soto Omar Syed MD Sep 11, 2019 14:18
[2019-09-11] MEDS ORDERED: Potassium Phosphate 20 MM in NS 275 ML IV ONE (15:00)
[2019-09-11] MEDS: Bisacodyl EC 5mg tab ORAL SCH (21:00)
--- NOTE | 2019-09-11 21:03 | General Progress Note ---
Assessment/Plan Problem List: (1) Sepsis ICD Codes: A41.9 - Sepsis, unspecified organism SNOMED: 16311445 Qualifiers: Qualified Codes: A41.9 - Sepsis, unspecified organism (2) Renal failure ICD Codes: N19 - Unspecified kidney failure SNOMED: 20676537 Qualifiers: Qualified Codes: N17.9 - Acute kidney failure, unspecified (3) Dehydration ICD Codes: E86.0 - Dehydration SNOMED: 11050340 (4) UTI (urinary tract infection) ICD Codes: N39.0 - Urinary tract infection, site not specified SNOMED: 51577289 Qualifiers: Qualified Codes: N39.0 - Urinary tract infection, site not specified (5) Fever ICD Codes: R50.9 - Fever, unspecified SNOMED: 599090176 Qualifiers: Qualified Codes: R50.9 - Fever, unspecified (6) Suspected 2019 novel coronavirus infection ICD Codes: Z20.828 - Contact with and (suspected) exposure to other viral communicable diseases SNOMED: 352824067 (7) Renal failure (ARF), acute on chronic ICD Codes: N17.9 - Acute kidney failure, unspecified; N18.9 - Chronic kidney disease, unspecified SNOMED: 280980034 Assessment/Plan: h/o covid positive pna resp insuff dehydration uti hypoxia elevated d dimer arf hypokalemia worsening leukocytosis Subjective ROS Limited/Unobtainable: Yes Allergies: Coded Allergies: No Known Allergies (Unverified , 09/08/19) Objective Last 24 Hour Vital Signs Date Time Temp Pulse Resp B/P (MAP) Pulse Ox O2 Delivery O2 Flow Rate FiO2 09/11/19 16:00 65 09/11/19 16:00 97.5 66 20 111/62 (78) 98 09/11/19 12:37 113/57 09/11/19 12:36 69 113/57 (75) 09/11/19 12:00 64 09/11/19 12:00 97.5 78 20 95/50 (65) 98 09/11/19 09:17 71 110/60 09/11/19 08:23 Room Air 09/11/19 08:00 78 09/11/19 08:00 97.1 71 20 110/60 (77) 98 09/11/19 04:00 97.3 62 18 131/77 (95) 97 09/11/19 04:00 64 09/11/19 00:00 66 09/11/19 00:00 97.9 72 18 123/77 (92) 96 Intake and Output 09/10/19 09/11/19 19:00 07:00 Intake Total 1260 ml 831.25 ml Output Total 1300 ml 800 ml Balance -40 ml 31.25 ml Intake Oral 360 ml IV Total 900 ml 831.25 ml Output Urine Total 1300 ml 800 ml # Voids 1 # Bowel Movements 1 Laboratory Tests 09/11/19 04:30: Urine Eosinophils None seen 09/11/19 06:24: POC Whole Blood Glucose 170H 09/11/19 07:55: Sodium Level 139, Potassium Level 3.4L, Chloride Level 104, Carbon Dioxide Level 25, Anion Gap 10, Blood Urea Nitrogen 25H, Creatinine 1.6H, Estimat Glomerular Filtration Rate 51.1, Glucose Level 173H, Calcium Level 8.0L, Phosphorus Level 2.4L, Magnesium Level 1.9, Total Bilirubin 0.8, Aspartate Amino Transf (AST/SGOT) 10L, Alanine Aminotransferase (ALT/SGPT) 27, Alkaline Phosphatase 67, Troponin I 0.071H, Total Protein 6.6, Albumin 3.0L, Globulin 3.6 , Albumin/Globulin Ratio 0.8L, Triglycerides Level 257H, Cholesterol Level 137, LDL Cholesterol 74, HDL Cholesterol 26L, Cholesterol/HDL Ratio 5.3H 09/11/19 11:04: POC Whole Blood Glucose 119H 09/11/19 16:45: POC Whole Blood Glucose 152H Height (Feet): 6 Height (Inches): 0.00 Weight (Pounds): 210 Julia Warner MD Sep 11, 2019 21:03
[2019-09-11] MEDS: Atorvastatin 20mg tab ORAL SCH (22:57)
[2019-09-11] MEDS: Cephalexin 500mg cap ORAL SCH (22:57)
[2019-09-12] VITALS: BP 116/68
[2019-09-12 04:00] VITALS: BP 124/71
[2019-09-12] MEDS: NovoLOG Insulin Flexpen SUBQ SCH ×4 (06:20→21:00)
[2019-09-12] MEDS: sitaGLIPtin 50mg tab ORAL SCH (06:43)
[2019-09-12] MEDS: Nateglinide 60mg tab ORAL SCH ×3 (06:43→16:00)
[2019-09-12 08:00] VITALS: BP 118/62
[2019-09-12] MEDS: Docusate 100mg cap ORAL SCH ×4 (09:00→17:52)
[2019-09-12] MEDS: Sennosides 8.6mg tab ORAL SCH ×2 (09:00→09:25)
[2019-09-12] MEDS: Aspirin Baby 81mg ORAL SCH (09:25)
[2019-09-12] MEDS: Enoxaparin 100mg Inj SUBQ SCH (09:27)
[2019-09-12] MEDS: Cephalexin 500mg cap ORAL SCH ×2 (09:30→21:04)
[2019-09-12 11:08] LABS: BASOPHILS % (AUTO) 1.1 % (0.0-2.0); EOSINOPHILS % (AUTO) 4.4 % (0.0-3.0); HEMATOCRIT 41.4 % (42.0-52.0); LYMPHOCYTES % (AUTO) 19.7 % (20.0-45.0); MEAN CORPUSCULAR VOLUME 98 FL (80-99); NEUTROPHILS % (AUTO) 67.8 % (45.0-75.0); PLATELET COUNT 191 K/UL (150-450); RED BLOOD COUNT 4.21 M/UL (4.70-6.10); RED CELL DISTRIBUTION WIDTH 10.7 % (11.6-14.8); WHITE BLOOD COUNT 7.7 K/UL (4.8-10.8)
[2019-09-12 11:37] LABS: ALANINE AMINOTRANSFERASE 36 U/L (12-78); ALBUMIN 2.8 G/DL (3.4-5.0); ALBUMIN/GLOBULIN RATIO 0.9 (1.0-2.7); ALKALINE PHOSPHATASE 81 U/L (46-116); ANION GAP 6 mmol/L (5-15); ASPARTATE AMINO TRANSFERASE 30 U/L (15-37); BILIRUBIN,TOTAL 0.7 MG/DL (0.2-1.0); BLOOD UREA NITROGEN 17 mg/dL (7-18); CALCIUM 8.5 MG/DL (8.5-10.1); CARBON DIOXIDE 28 MMOL/L (21-32); CHLORIDE 104 MMOL/L (98-107); CREATININE 1.5 MG/DL (0.55-1.30); POTASSIUM 4.1 MMOL/L (3.5-5.1); SODIUM 138 MMOL/L (136-145)
[2019-09-12 12:00] VITALS: BP 110/74
--- NOTE | 2019-09-12 12:00 | Nephrology Progress Note ---
Assessment/Plan Problem List: (1) Renal failure (ARF), acute on chronic (2) Dehydration (3) Sepsis (4) UTI (urinary tract infection) Assessment This 74-year-old male presented to emergency room with fever, leukocytosis, evidence of UTI/sepsis He has leukocytosis and increased d-dimer, suspected 2019 novel coronavirus infection, however the first test is negative Renal impression: Acute on chronic kidney disease Superimposed dehydration Underlying diabetic nephropathy Diabetes mellitus [id number] Plan Serum creatinine 1.5 today Other parameters and electrolytes stable Previously: Add Nitropaste for elevated troponin Add fish oil Slow IV hydration Monitor renal parameters Patient has a Carmen catheter Avoid nephrotoxic's On diabetic friendly diet now Keep the blood pressure and blood sugar in check Per orders Discussed with RN Subjective ROS Limited/Unobtainable: No Constitutional: Reports: malaise Objective Objective Last 24 Hour Vital Signs Date Time Temp Pulse Resp B/P (MAP) Pulse Ox O2 Delivery O2 Flow Rate FiO2 09/12/19 09:26 64 118/62 09/12/19 08:00 97.7 64 17 118/62 (80) 98 09/12/19 08:00 89 09/12/19 04:00 97.2 63 16 124/71 (88) 98 09/12/19 04:00 65 09/12/19 00:00 96.9 63 16 116/68 (84) 98 09/12/19 00:00 74 09/11/19 21:00 85 164/98 09/11/19 21:00 Room Air 09/11/19 20:00 63 09/11/19 20:00 97.7 66 20 111/62 (78) 98 09/11/19 16:00 65 09/11/19 16:00 97.5 66 20 111/62 (78) 98 09/11/19 12:37 113/57 09/11/19 12:36 69 113/57 (75) 09/11/19 12:00 64 09/11/19 12:00 97.5 78 20 95/50 (65) 98 Intake and Output 09/11/19 09/12/19 19:00 07:00 Intake Total 1725 ml 600 ml Output Total 500 ml 800 ml Balance 1225 ml -200 ml Intake Oral 1200 ml 600 ml IV Total 525 ml Output Urine Total 500 ml 800 ml # Voids 1 # Bowel Movements 1 Current Medications Medications (Trade) Dose Ordered Sig/Karyna Route PRN Reason Start Time Stop Time Status Last Admin Dose Admin Acetaminophen (Tylenol) 500 mg Q4H PRN ORAL Mild Pain (Pain Scale 1-3) 09/09/19 02:00 10/09/19 01:59 09/11/19 14:30 Aspirin (ASA) 81 mg DAILY ORAL 09/09/19 10:30 10/24/19 10:29 09/12/19 09:25 Atorvastatin Calcium (Lipitor) 20 mg BEDTIME ORAL 09/10/19 21:00 12/09/19 20:59 09/11/19 22:57 Bisacodyl (Dulcolax) 10 mg QHS ORAL 09/10/19 21:00 12/09/19 20:59 09/10/19 20:37 Cephalexin (Keflex) 500 mg Q12H ORAL 09/11/19 21:00 09/18/19 20:59 09/12/19 09:30 Dextrose (Dextrose 50%) 25 ml Q30M PRN IV Hypoglycemia 09/09/19 17:30 12/08/19 17:29 Dextrose (Dextrose 50%) 50 ml Q30M PRN IV Hypoglycemia 09/09/19 17:30 12/08/19 17:29 Docusate Sodium (Colace) 100 mg THREE TIMES A DAY ORAL 09/09/19 13:00 10/09/19 12:59 09/11/19 09:18 Enoxaparin Sodium (Lovenox) 100 mg Q24H SUBQ 09/09/19 09:00 12/08/19 08:59 09/12/19 09:27 Fish Oil (Fish Oil) 1,000 mg BID ORAL 09/10/19 18:00 10/10/19 17:59 09/12/19 09:25 Hydralazine HCl (Apresoline) 25 mg Q4H PRN ORAL BP over 160 systolic 09/09/19 10:00 12/08/19 09:59 Insulin Aspart (NovoLOG) BEFORE MEALS AND HS SUBQ 09/09/19 21:00 12/08/19 20:59 09/11/19 16:47 Magnesium Hydroxide (Mom) 30 ml Q4H PRN ORAL Constipation 09/10/19 17:15 10/10/19 17:14 09/10/19 21:48 Metoprolol Tartrate (Lopressor) 25 mg Q12HR ORAL 09/10/19 21:00 12/09/19 20:59 09/12/19 09:26 Nateglinide (Starlix) 60 mg TIAC ORAL 09/11/19 06:30 10/11/19 06:29 09/12/19 11:25 Nitroglycerin (Ntg) 1 patch Q24H TDERMAL 09/10/19 13:30 10/10/19 13:29 09/10/19 15:04 Pantoprazole (Protonix) 40 mg EVERY 12 HOURS ORAL 09/09/19 21:00 10/09/19 20:59 09/12/19 09:26 Sennosides (Senokot) 8.6 mg DAILY ORAL 09/11/19 09:00 10/11/19 08:59 09/11/19 09:16 Sitagliptin Phosphate (Januvia) 50 mg ACBREAKFAST ORAL 09/11/19 06:30 10/11/19 06:29 09/12/19 06:43 Laboratory Tests 09/11/19 16:45: POC Whole Blood Glucose 152H 09/11/19 21:20: POC Whole Blood Glucose [Pending] 09/12/19 10:45: White Blood Count 7.7, Red Blood Count 4.21L, Hemoglobin 14.0L, Hematocrit 41.4L , Mean Corpuscular Volume 98, Mean Corpuscular Hemoglobin 33.3H, Mean Corpuscular Hemoglobin Concent 33.9, Red Cell Distribution Width 10.7L, Platelet Count 191, Mean Platelet Volume 6.7, Neutrophils (%) (Auto) 67.8, Lymphocytes (%) (Auto) 19.7L, Monocytes (%) (Auto) 7.0, Eosinophils (%) (Auto) 4.4H, Basophils (%) (Auto) 1.1, Sodium Level 138, Potassium Level 4.1, Chloride Level 104, Carbon Dioxide Level 28, Anion Gap 6, Blood Urea Nitrogen 17, Creatinine 1.5H, Estimat Glomerular Filtration Rate 55.1, Glucose Level 164H, Calcium Level 8.5, Calcium (Send out) [Pending], Phosphorus Level 2.8, Magnesium Level 2.1, Total Bilirubin 0.7, Aspartate Amino Transf (AST/SGOT) 30, Alanine Aminotransferase (ALT/SGPT) 36, Alkaline Phosphatase 81, C-Reactive Protein, Quantitative 1.3H, Pro-B-Type Natriuretic Peptide 721H, Total Protein 5.8L, Albumin 2.8L, Globulin 3.0, Albumin/Globulin Ratio 0.9L, Parathyroid Hormone (Intact) [Pending] Height (Feet): 6 Height (Inches): 0.00 Weight (Pounds): 210 General Appearance: no apparent distress EENT: other - Breathing in room air Cardiovascular: normal rate Respiratory/Chest: decreased breath sounds Abdomen: distended Wild Kraft MD Sep 12, 2019 12:00
[2019-09-12] MEDS: Nitroglycerin Patch 0.4mg TDERMAL SCH (12:39)
--- NOTE | 2019-09-12 13:21 | General Progress Note ---
Assessment/Plan Problem List: (1) Diabetes mellitus out of control ICD Codes: E11.65 - Type 2 diabetes mellitus with hyperglycemia SNOMED: 62830092, 430502120 (2) Suspected 2019 novel coronavirus infection ICD Codes: Z20.828 - Contact with and (suspected) exposure to other viral communicable diseases SNOMED: 490330352 (3) Sepsis ICD Codes: A41.9 - Sepsis, unspecified organism SNOMED: 02230983 Qualifiers: Qualified Codes: A41.9 - Sepsis, unspecified organism (4) Dehydration ICD Codes: E86.0 - Dehydration SNOMED: 85249740 (5) Renal failure ICD Codes: N19 - Unspecified kidney failure SNOMED: 19374625 Qualifiers: Qualified Codes: N17.9 - Acute kidney failure, unspecified (6) UTI (urinary tract infection) ICD Codes: N39.0 - Urinary tract infection, site not specified SNOMED: 62559952 Qualifiers: Qualified Codes: N39.0 - Urinary tract infection, site not specified (7) Altered level of consciousness ICD Codes: R40.4 - Transient alteration of awareness SNOMED: 0673291 (8) Renal failure (ARF), acute on chronic ICD Codes: N17.9 - Acute kidney failure, unspecified; N18.9 - Chronic kidney disease, unspecified SNOMED: 346715163 (9) Fever ICD Codes: R50.9 - Fever, unspecified SNOMED: 526968884 Qualifiers: Qualified Codes: R50.9 - Fever, unspecified Assessment/Plan: continue Januvia 50 mg daily continue Starlix 60 mg ac tid continue Novolog sliding scale ac / hs hypoglycemic protocol in order Subjective Allergies: Coded Allergies: No Known Allergies (Unverified , 09/08/19) All Systems: reviewed and negative except above Subjective events noted glucose values are stable Item Value Date Time Bedside Blood Glucose 159 mg/dl H 09/12/19 1236 Bedside Blood Glucose 149 mg/dl H 09/11/19 2100 Objective Last 24 Hour Vital Signs Date Time Temp Pulse Resp B/P (MAP) Pulse Ox O2 Delivery O2 Flow Rate FiO2 09/12/19 12:39 110/74 09/12/19 12:00 54 09/12/19 12:00 98.3 80 20 110/74 (86) 98 09/12/19 09:26 64 118/62 09/12/19 09:00 Room Air 09/12/19 08:00 97.7 64 17 118/62 (80) 98 09/12/19 08:00 89 09/12/19 04:00 97.2 63 16 124/71 (88) 98 09/12/19 04:00 65 09/12/19 00:00 96.9 63 16 116/68 (84) 98 09/12/19 00:00 74 09/11/19 21:00 85 164/98 09/11/19 21:00 Room Air 09/11/19 20:00 63 09/11/19 20:00 97.7 66 20 111/62 (78) 98 09/11/19 16:00 65 09/11/19 16:00 97.5 66 20 111/62 (78) 98 Intake and Output 09/11/19 09/12/19 19:00 07:00 Intake Total 1725 ml 600 ml Output Total 500 ml 800 ml Balance 1225 ml -200 ml Intake Oral 1200 ml 600 ml IV Total 525 ml Output Urine Total 500 ml 800 ml # Voids 1 # Bowel Movements 1 Laboratory Tests 09/11/19 16:45: POC Whole Blood Glucose 152H 09/11/19 21:20: POC Whole Blood Glucose [Pending] 09/12/19 10:45: White Blood Count 7.7, Red Blood Count 4.21L, Hemoglobin 14.0L, Hematocrit 41.4L , Mean Corpuscular Volume 98, Mean Corpuscular Hemoglobin 33.3H, Mean Corpuscular Hemoglobin Concent 33.9, Red Cell Distribution Width 10.7L, Platelet Count 191, Mean Platelet Volume 6.7, Neutrophils (%) (Auto) 67.8, Lymphocytes (%) (Auto) 19.7L, Monocytes (%) (Auto) 7.0, Eosinophils (%) (Auto) 4.4H, Basophils (%) (Auto) 1.1, Sodium Level 138, Potassium Level 4.1, Chloride Level 104, Carbon Dioxide Level 28, Anion Gap 6, Blood Urea Nitrogen 17, Creatinine 1.5H, Estimat Glomerular Filtration Rate 55.1, Glucose Level 164H, Calcium Level 8.5, Calcium (Send out) [Pending], Phosphorus Level 2.8, Magnesium Level 2.1, Total Bilirubin 0.7, Aspartate Amino Transf (AST/SGOT) 30, Alanine Aminotransferase (ALT/SGPT) 36, Alkaline Phosphatase 81, C-Reactive Protein, Quantitative 1.3H, Pro-B-Type Natriuretic Peptide 721H, Total Protein 5.8L, Albumin 2.8L, Globulin 3.0, Albumin/Globulin Ratio 0.9L, Parathyroid Hormone (Intact) [Pending] Height (Feet): 6 Height (Inches): 0.00 Weight (Pounds): 210 General Appearance: no apparent distress Neck: normal alignment Cardiovascular: normal rate Respiratory/Chest: lungs clear Objective Current Medications Medications (Trade) Dose Ordered Sig/Karyna Route PRN Reason Start Time Stop Time Status Last Admin Dose Admin Acetaminophen (Tylenol) 500 mg Q4H PRN ORAL Mild Pain (Pain Scale 1-3) 09/09/19 02:00 10/09/19 01:59 09/11/19 14:30 Aspirin (ASA) 81 mg DAILY ORAL 09/09/19 10:30 10/24/19 10:29 09/12/19 09:25 Atorvastatin Calcium (Lipitor) 20 mg BEDTIME ORAL 09/10/19 21:00 12/09/19 20:59 09/11/19 22:57 Bisacodyl (Dulcolax) 10 mg QHS ORAL 09/10/19 21:00 12/09/19 20:59 09/10/19 20:37 Cephalexin (Keflex) 500 mg Q12H ORAL 09/11/19 21:00 09/18/19 20:59 09/12/19 09:30 Dextrose (Dextrose 50%) 25 ml Q30M PRN IV Hypoglycemia 09/09/19 17:30 12/08/19 17:29 Dextrose (Dextrose 50%) 50 ml Q30M PRN IV Hypoglycemia 09/09/19 17:30 12/08/19 17:29 Docusate Sodium (Colace) 100 mg THREE TIMES A DAY ORAL 09/09/19 13:00 10/09/19 12:59 09/11/19 09:18 Enoxaparin Sodium (Lovenox) 100 mg Q24H SUBQ 09/09/19 09:00 12/08/19 08:59 09/12/19 09:27 Fish Oil (Fish Oil) 1,000 mg BID ORAL 09/10/19 18:00 10/10/19 17:59 09/12/19 09:25 Hydralazine HCl (Apresoline) 25 mg Q4H PRN ORAL BP over 160 systolic 09/09/19 10:00 12/08/19 09:59 Insulin Aspart (NovoLOG) BEFORE MEALS AND HS SUBQ 09/09/19 21:00 12/08/19 20:59 09/12/19 12:36 Magnesium Hydroxide (Mom) 30 ml Q4H PRN ORAL Constipation 09/10/19 17:15 10/10/19 17:14 09/10/19 21:48 Metoprolol Tartrate (Lopressor) 25 mg Q12HR ORAL 09/10/19 21:00 12/09/19 20:59 09/12/19 09:26 Nateglinide (Starlix) 60 mg TIAC ORAL 09/11/19 06:30 10/11/19 06:29 09/12/19 11:25 Nitroglycerin (Ntg) 1 patch Q24H TDERMAL 09/10/19 13:30 10/10/19 13:29 09/12/19 12:39 Pantoprazole (Protonix) 40 mg EVERY 12 HOURS ORAL 09/09/19 21:00 10/09/19 20:59 09/12/19 09:26 Sennosides (Senokot) 8.6 mg DAILY ORAL 09/11/19 09:00 10/11/19 08:59 09/11/19 09:16 Sitagliptin Phosphate (Januvia) 50 mg ACBREAKFAST ORAL 09/11/19 06:30 10/11/19 06:29 09/12/19 06:43 Werner Barth MD Sep 12, 2019 13:21
--- NOTE | 2019-09-12 15:09 | Pulmonology Progress Note ---
Subjective ROS Limited/Unobtainable: No Interval Events: None new Constitutional: Denies: fever HEENT: Repors: no symptoms Respiratory: Reports: no symptoms Cardiovascular: Reports: no symptoms Gastrointestinal/Abdominal: Reports: diarrhea Allergies: Coded Allergies: No Known Allergies (Unverified , 09/08/19) All Systems: reviewed and negative except above Objective Last 24 Hour Vital Signs Date Time Temp Pulse Resp B/P (MAP) Pulse Ox O2 Delivery O2 Flow Rate FiO2 09/12/19 12:39 110/74 09/12/19 12:00 54 09/12/19 12:00 98.3 80 20 110/74 (86) 98 09/12/19 09:26 64 118/62 09/12/19 09:00 Room Air 09/12/19 08:00 97.7 64 17 118/62 (80) 98 09/12/19 08:00 89 09/12/19 04:00 97.2 63 16 124/71 (88) 98 09/12/19 04:00 65 09/12/19 00:00 96.9 63 16 116/68 (84) 98 09/12/19 00:00 74 09/11/19 21:00 85 164/98 09/11/19 21:00 Room Air 09/11/19 20:00 63 09/11/19 20:00 97.7 66 20 111/62 (78) 98 09/11/19 16:00 65 09/11/19 16:00 97.5 66 20 111/62 (78) 98 Intake and Output 09/11/19 09/12/19 19:00 07:00 Intake Total 1725 ml 600 ml Output Total 500 ml 800 ml Balance 1225 ml -200 ml Intake Oral 1200 ml 600 ml IV Total 525 ml Output Urine Total 500 ml 800 ml # Voids 1 # Bowel Movements 1 General Appearance: no acute distress HEENT: normocephalic Respiratory: chest wall non-tender, lungs clear Cardiovascular: normal peripheral pulses Abdomen: normal bowel sounds Laboratory Tests 09/11/19 16:45: POC Whole Blood Glucose 152H 09/11/19 21:20: POC Whole Blood Glucose [Pending] 09/12/19 10:45: White Blood Count 7.7, Red Blood Count 4.21L, Hemoglobin 14.0L, Hematocrit 41.4L , Mean Corpuscular Volume 98, Mean Corpuscular Hemoglobin 33.3H, Mean Corpuscular Hemoglobin Concent 33.9, Red Cell Distribution Width 10.7L, Platelet Count 191, Mean Platelet Volume 6.7, Neutrophils (%) (Auto) 67.8, Lymphocytes (%) (Auto) 19.7L, Monocytes (%) (Auto) 7.0, Eosinophils (%) (Auto) 4.4H, Basophils (%) (Auto) 1.1, Sodium Level 138, Potassium Level 4.1, Chloride Level 104, Carbon Dioxide Level 28, Anion Gap 6, Blood Urea Nitrogen 17, Creatinine 1.5H, Estimat Glomerular Filtration Rate 55.1, Glucose Level 164H, Calcium Level 8.5, Calcium (Send out) [Pending], Phosphorus Level 2.8, Magnesium Level 2.1, Total Bilirubin 0.7, Aspartate Amino Transf (AST/SGOT) 30, Alanine Aminotransferase (ALT/SGPT) 36, Alkaline Phosphatase 81, C-Reactive Protein, Quantitative 1.3H, Pro-B-Type Natriuretic Peptide 721H, Total Protein 5.8L, Albumin 2.8L, Globulin 3.0, Albumin/Globulin Ratio 0.9L, Parathyroid Hormone (Intact) [Pending] Current Medications Medications (Trade) Dose Ordered Sig/Karyna Route PRN Reason Start Time Stop Time Status Last Admin Dose Admin Acetaminophen (Tylenol) 500 mg Q4H PRN ORAL Mild Pain (Pain Scale 1-3) 09/09/19 02:00 10/09/19 01:59 09/11/19 14:30 Aspirin (ASA) 81 mg DAILY ORAL 09/09/19 10:30 10/24/19 10:29 09/12/19 09:25 Atorvastatin Calcium (Lipitor) 20 mg BEDTIME ORAL 09/10/19 21:00 12/09/19 20:59 09/11/19 22:57 Bisacodyl (Dulcolax) 10 mg QHS ORAL 09/10/19 21:00 12/09/19 20:59 09/10/19 20:37 Cephalexin (Keflex) 500 mg Q12H ORAL 09/11/19 21:00 09/18/19 20:59 09/12/19 09:30 Dextrose (Dextrose 50%) 25 ml Q30M PRN IV Hypoglycemia 09/09/19 17:30 12/08/19 17:29 Dextrose (Dextrose 50%) 50 ml Q30M PRN IV Hypoglycemia 09/09/19 17:30 12/08/19 17:29 Docusate Sodium (Colace) 100 mg THREE TIMES A DAY ORAL 09/09/19 13:00 10/09/19 12:59 09/11/19 09:18 Enoxaparin Sodium (Lovenox) 100 mg Q24H SUBQ 09/09/19 09:00 12/08/19 08:59 09/12/19 09:27 Fish Oil (Fish Oil) 1,000 mg BID ORAL 09/10/19 18:00 10/10/19 17:59 09/12/19 09:25 Hydralazine HCl (Apresoline) 25 mg Q4H PRN ORAL BP over 160 systolic 09/09/19 10:00 12/08/19 09:59 Insulin Aspart (NovoLOG) BEFORE MEALS AND HS SUBQ 09/09/19 21:00 12/08/19 20:59 09/12/19 12:36 Magnesium Hydroxide (Mom) 30 ml Q4H PRN ORAL Constipation 09/10/19 17:15 10/10/19 17:14 09/10/19 21:48 Metoprolol Tartrate (Lopressor) 25 mg Q12HR ORAL 09/10/19 21:00 12/09/19 20:59 09/12/19 09:26 Nateglinide (Starlix) 60 mg TIAC ORAL 09/11/19 06:30 10/11/19 06:29 09/12/19 11:25 Nitroglycerin (Ntg) 1 patch Q24H TDERMAL 09/10/19 13:30 10/10/19 13:29 09/12/19 12:39 Pantoprazole (Protonix) 40 mg EVERY 12 HOURS ORAL 09/09/19 21:00 10/09/19 20:59 09/12/19 09:26 Sennosides (Senokot) 8.6 mg DAILY ORAL 09/11/19 09:00 10/11/19 08:59 09/11/19 09:16 Sitagliptin Phosphate (Januvia) 50 mg ACBREAKFAST ORAL 09/11/19 06:30 10/11/19 06:29 09/12/19 06:43 Assessment/Plan Assessment/Plan IMPRESSION: 1. Altered mental status. 2. UTI. 3. Diabetes mellitus. 4. Hypertension. 5. Renal failure. 6. Elevated D-dimer. DISCUSSION: His inflammatory markers are abnormal. Is negative for COVID 19 pcr On full dose Lovenox Continue broad-spectrum antibiotics. Defer to ID. I will follow carefully. Armand Soto Omar Syed MD Sep 12, 2019 15:09
--- NOTE | 2019-09-12 15:49 | Cardiac Electrophysiology PN ---
Assessment/Plan Assessment/Plan 1. Hypertension. On Lopressor 25 bid and p.r.n. hydralazine 2. NSTEMI with elevated troponin and Inferolateral ischemia. Denies any chest pain. EF 55%. Has first-degree AV block. On Aspirin and Lopressor. Troponin 0.8 3. Shortness of breath, patient being ruled out for COVID and started on Abx 4. Elevated D-dimer. Lower extremity duplex negative for DVT 5. Renal failure with Cr 1.9 6. Bacteremia and UTI on Cephalexin. May need MARILIN DW RN Subjective Subjective Covid is negative. Has first degree AVB. On Abx for positive Blood Cx and UTI Objective Last 24 Hour Vital Signs Date Time Temp Pulse Resp B/P (MAP) Pulse Ox O2 Delivery O2 Flow Rate FiO2 09/12/19 12:39 110/74 09/12/19 12:00 54 09/12/19 12:00 98.3 80 20 110/74 (86) 98 09/12/19 09:26 64 118/62 09/12/19 09:00 Room Air 09/12/19 08:00 97.7 64 17 118/62 (80) 98 09/12/19 08:00 89 09/12/19 04:00 97.2 63 16 124/71 (88) 98 09/12/19 04:00 65 09/12/19 00:00 96.9 63 16 116/68 (84) 98 09/12/19 00:00 74 09/11/19 21:00 85 164/98 09/11/19 21:00 Room Air 09/11/19 20:00 63 09/11/19 20:00 97.7 66 20 111/62 (78) 98 09/11/19 16:00 65 09/11/19 16:00 97.5 66 20 111/62 (78) 98 Intake and Output 09/11/19 09/12/19 19:00 07:00 Intake Total 1725 ml 600 ml Output Total 500 ml 800 ml Balance 1225 ml -200 ml Intake Oral 1200 ml 600 ml IV Total 525 ml Output Urine Total 500 ml 800 ml # Voids 1 # Bowel Movements 1 Laboratory Tests Test 09/11/19 16:45 09/11/19 21:20 09/12/19 10:45 POC Whole Blood Glucose 152 MG/DL (74-106) H Pending White Blood Count 7.7 K/UL (4.8-10.8) Red Blood Count 4.21 M/UL (4.70-6.10) L Hemoglobin 14.0 G/DL (14.2-18.0) L Hematocrit 41.4 % (42.0-52.0) L Mean Corpuscular Volume 98 FL (80-99) Mean Corpuscular Hemoglobin 33.3 PG (27.0-31.0) H Mean Corpuscular Hemoglobin Concent 33.9 G/DL (32.0-36.0) Red Cell Distribution Width 10.7 % (11.6-14.8) L Platelet Count 191 K/UL (150-450) Mean Platelet Volume 6.7 FL (6.5-10.1) Neutrophils (%) (Auto) 67.8 % (45.0-75.0) Lymphocytes (%) (Auto) 19.7 % (20.0-45.0) L Monocytes (%) (Auto) 7.0 % (1.0-10.0) Eosinophils (%) (Auto) 4.4 % (0.0-3.0) H Basophils (%) (Auto) 1.1 % (0.0-2.0) Sodium Level 138 MMOL/L (136-145) Potassium Level 4.1 MMOL/L (3.5-5.1) Chloride Level 104 MMOL/L (98-107) Carbon Dioxide Level 28 MMOL/L (21-32) Anion Gap 6 mmol/L (5-15) Blood Urea Nitrogen 17 mg/dL (7-18) Creatinine 1.5 MG/DL (0.55-1.30) H Estimat Glomerular Filtration Rate 55.1 mL/min (>60) Glucose Level 164 MG/DL (74-106) H Calcium Level 8.5 MG/DL (8.5-10.1) Calcium (Send out) Pending Phosphorus Level 2.8 MG/DL (2.5-4.9) Magnesium Level 2.1 MG/DL (1.8-2.4) Total Bilirubin 0.7 MG/DL (0.2-1.0) Aspartate Amino Transf (AST/SGOT) 30 U/L (15-37) Alanine Aminotransferase (ALT/SGPT) 36 U/L (12-78) Alkaline Phosphatase 81 U/L (46-116) C-Reactive Protein, Quantitative 1.3 mg/dL (0.00-0.90) H Pro-B-Type Natriuretic Peptide 721 pg/mL (0-125) H Total Protein 5.8 G/DL (6.4-8.2) L Albumin 2.8 G/DL (3.4-5.0) L Globulin 3.0 g/dL Albumin/Globulin Ratio 0.9 (1.0-2.7) L Parathyroid Hormone (Intact) Pending Objective NECK: No JVD. LUNGS: Clear. CARDIOVASCULAR: Regular S1 and S2 with no gallop or murmur. ABDOMEN: Soft. EXTREMITIES: No pitting edema. Rick Torres MD Sep 12, 2019 15:48
[2019-09-12 16:00] VITALS: BP 110/74
[2019-09-12 20:00] VITALS: BP 143/73
[2019-09-12] MEDS: Acetaminophen 500mg (ES) tab ORAL PRN (21:00)
[2019-09-12] MEDS: Bisacodyl EC 5mg tab ORAL SCH (21:02)
[2019-09-12] MEDS: Atorvastatin 20mg tab ORAL SCH (21:02)
--- NOTE | 2019-09-12 21:46 | General Progress Note ---
Assessment/Plan Problem List: (1) Sepsis ICD Codes: A41.9 - Sepsis, unspecified organism SNOMED: 54365088 Qualifiers: Qualified Codes: A41.9 - Sepsis, unspecified organism (2) Renal failure ICD Codes: N19 - Unspecified kidney failure SNOMED: 27066832 Qualifiers: Qualified Codes: N17.9 - Acute kidney failure, unspecified (3) Dehydration ICD Codes: E86.0 - Dehydration SNOMED: 86024819 (4) UTI (urinary tract infection) ICD Codes: N39.0 - Urinary tract infection, site not specified SNOMED: 30842931 Qualifiers: Qualified Codes: N39.0 - Urinary tract infection, site not specified (5) Fever ICD Codes: R50.9 - Fever, unspecified SNOMED: 229658873 Qualifiers: Qualified Codes: R50.9 - Fever, unspecified (6) Suspected 2019 novel coronavirus infection ICD Codes: Z20.828 - Contact with and (suspected) exposure to other viral communicable diseases SNOMED: 267919765 (7) Renal failure (ARF), acute on chronic ICD Codes: N17.9 - Acute kidney failure, unspecified; N18.9 - Chronic kidney disease, unspecified SNOMED: 692325843 Assessment/Plan: h/o covid positive pna resp insuff dehydration no change abx per id lytes improved hypoxia elevated d dimer arf hypokalemia leukocytosis Subjective ROS Limited/Unobtainable: Yes Allergies: Coded Allergies: No Known Allergies (Unverified , 09/08/19) Objective Last 24 Hour Vital Signs Date Time Temp Pulse Resp B/P (MAP) Pulse Ox O2 Delivery O2 Flow Rate FiO2 09/12/19 21:00 60 143/73 09/12/19 16:00 58 09/12/19 16:00 98.4 67 21 110/74 (86) 98 09/12/19 12:39 110/74 09/12/19 12:00 54 09/12/19 12:00 98.3 80 20 110/74 (86) 98 09/12/19 09:26 64 118/62 09/12/19 09:00 Room Air 09/12/19 08:00 97.7 64 17 118/62 (80) 98 09/12/19 08:00 89 09/12/19 04:00 97.2 63 16 124/71 (88) 98 09/12/19 04:00 65 09/12/19 00:00 96.9 63 16 116/68 (84) 98 09/12/19 00:00 74 Intake and Output 09/11/19 09/12/19 19:00 07:00 Intake Total 1725 ml 600 ml Output Total 500 ml 800 ml Balance 1225 ml -200 ml Intake Oral 1200 ml 600 ml IV Total 525 ml Output Urine Total 500 ml 800 ml # Voids 1 # Bowel Movements 1 Laboratory Tests 09/12/19 10:45: White Blood Count 7.7, Red Blood Count 4.21L, Hemoglobin 14.0L, Hematocrit 41.4L , Mean Corpuscular Volume 98, Mean Corpuscular Hemoglobin 33.3H, Mean Corpuscular Hemoglobin Concent 33.9, Red Cell Distribution Width 10.7L, Platelet Count 191, Mean Platelet Volume 6.7, Neutrophils (%) (Auto) 67.8, Lymphocytes (%) (Auto) 19.7L, Monocytes (%) (Auto) 7.0, Eosinophils (%) (Auto) 4.4H, Basophils (%) (Auto) 1.1, Sodium Level 138, Potassium Level 4.1, Chloride Level 104, Carbon Dioxide Level 28, Anion Gap 6, Blood Urea Nitrogen 17, Creatinine 1.5H, Estimat Glomerular Filtration Rate 55.1, Glucose Level 164H, Calcium Level 8.5, Calcium (Send out) [Pending], Phosphorus Level 2.8, Magnesium Level 2.1, Total Bilirubin 0.7, Aspartate Amino Transf (AST/SGOT) 30, Alanine Aminotransferase (ALT/SGPT) 36, Alkaline Phosphatase 81, C-Reactive Protein, Quantitative 1.3H, Pro-B-Type Natriuretic Peptide 721H, Total Protein 5.8L, Albumin 2.8L, Globulin 3.0, Albumin/Globulin Ratio 0.9L, Parathyroid Hormone (Intact) [Pending] 09/12/19 11:57: POC Whole Blood Glucose 159H 09/12/19 16:14: POC Whole Blood Glucose 161H 09/12/19 20:54: POC Whole Blood Glucose 130H Height (Feet): 6 Height (Inches): 0.00 Weight (Pounds): 210 Julia Warner MD Sep 12, 2019 21:46
[2019-09-13] VITALS (7 sets, daily range): BP systolic 114–151; BP diastolic 60–96
[2019-09-13] MEDS: sitaGLIPtin 50mg tab ORAL SCH (06:31)
[2019-09-13] MEDS: Nateglinide 60mg tab ORAL SCH ×3 (06:31→17:16)
[2019-09-13] MEDS: NovoLOG Insulin Flexpen SUBQ SCH ×4 (06:32→21:00)
--- NOTE | 2019-09-13 08:06 | Pulmonology Progress Note ---
Subjective ROS Limited/Unobtainable: Yes Interval Events: None new Constitutional: Denies: fever HEENT: Repors: no symptoms Respiratory: Reports: no symptoms Cardiovascular: Reports: no symptoms Gastrointestinal/Abdominal: Reports: diarrhea Allergies: Coded Allergies: No Known Allergies (Unverified , 09/08/19) All Systems: reviewed and negative except above Objective Last 24 Hour Vital Signs Date Time Temp Pulse Resp B/P (MAP) Pulse Ox O2 Delivery O2 Flow Rate FiO2 09/13/19 04:00 97.7 60 18 127/66 (86) 96 09/13/19 04:00 59 09/13/19 00:00 60 09/13/19 00:00 97.7 60 18 151/77 (101) 96 09/12/19 21:00 Room Air 09/12/19 21:00 60 143/73 09/12/19 20:00 60 09/12/19 20:00 97.7 60 18 143/73 (96) 97 09/12/19 16:00 58 09/12/19 16:00 98.4 67 21 110/74 (86) 98 09/12/19 12:39 110/74 09/12/19 12:00 54 09/12/19 12:00 98.3 80 20 110/74 (86) 98 09/12/19 09:26 64 118/62 09/12/19 09:00 Room Air Intake and Output 09/12/19 09/13/19 19:00 07:00 Intake Total 480 ml Output Total 600 ml 500 ml Balance -120 ml -500 ml Intake Oral 480 ml Output Urine Total 600 ml 500 ml General Appearance: no acute distress HEENT: normocephalic Respiratory: chest wall non-tender, lungs clear Cardiovascular: normal peripheral pulses Abdomen: normal bowel sounds Laboratory Tests 09/12/19 10:45: White Blood Count 7.7, Red Blood Count 4.21L, Hemoglobin 14.0L, Hematocrit 41.4L , Mean Corpuscular Volume 98, Mean Corpuscular Hemoglobin 33.3H, Mean Corpuscular Hemoglobin Concent 33.9, Red Cell Distribution Width 10.7L, Platelet Count 191, Mean Platelet Volume 6.7, Neutrophils (%) (Auto) 67.8, Lymphocytes (%) (Auto) 19.7L, Monocytes (%) (Auto) 7.0, Eosinophils (%) (Auto) 4.4H, Basophils (%) (Auto) 1.1, Sodium Level 138, Potassium Level 4.1, Chloride Level 104, Carbon Dioxide Level 28, Anion Gap 6, Blood Urea Nitrogen 17, Creatinine 1.5H, Estimat Glomerular Filtration Rate 55.1, Glucose Level 164H, Calcium Level 8.5, Calcium (Send out) [Pending], Phosphorus Level 2.8, Magnesium Level 2.1, Total Bilirubin 0.7, Aspartate Amino Transf (AST/SGOT) 30, Alanine Aminotransferase (ALT/SGPT) 36, Alkaline Phosphatase 81, C-Reactive Protein, Quantitative 1.3H, Pro-B-Type Natriuretic Peptide 721H, Total Protein 5.8L, Albumin 2.8L, Globulin 3.0, Albumin/Globulin Ratio 0.9L, Parathyroid Hormone (Intact) [Pending] 09/12/19 11:57: POC Whole Blood Glucose 159H 09/12/19 16:14: POC Whole Blood Glucose 161H 09/12/19 20:54: POC Whole Blood Glucose 130H 09/13/19 06:06: POC Whole Blood Glucose 150H Current Medications Medications (Trade) Dose Ordered Sig/Karyna Route PRN Reason Start Time Stop Time Status Last Admin Dose Admin Acetaminophen (Tylenol) 500 mg Q4H PRN ORAL Mild Pain (Pain Scale 1-3) 09/09/19 02:00 10/09/19 01:59 09/12/19 21:00 Aspirin (ASA) 81 mg DAILY ORAL 09/09/19 10:30 10/24/19 10:29 09/12/19 09:25 Atorvastatin Calcium (Lipitor) 20 mg BEDTIME ORAL 09/10/19 21:00 12/09/19 20:59 09/12/19 21:02 Bisacodyl (Dulcolax) 10 mg QHS ORAL 09/10/19 21:00 12/09/19 20:59 09/12/19 21:02 Cephalexin (Keflex) 500 mg Q12H ORAL 09/11/19 21:00 09/18/19 20:59 09/12/19 21:04 Dextrose (Dextrose 50%) 25 ml Q30M PRN IV Hypoglycemia 09/09/19 17:30 12/08/19 17:29 Dextrose (Dextrose 50%) 50 ml Q30M PRN IV Hypoglycemia 09/09/19 17:30 12/08/19 17:29 Docusate Sodium (Colace) 100 mg THREE TIMES A DAY ORAL 09/09/19 13:00 10/09/19 12:59 09/11/19 09:18 Enoxaparin Sodium (Lovenox) 100 mg Q24H SUBQ 09/09/19 09:00 12/08/19 08:59 09/12/19 09:27 Fish Oil (Fish Oil) 1,000 mg BID ORAL 09/10/19 18:00 10/10/19 17:59 09/12/19 17:44 Hydralazine HCl (Apresoline) 25 mg Q4H PRN ORAL BP over 160 systolic 09/09/19 10:00 12/08/19 09:59 Insulin Aspart (NovoLOG) BEFORE MEALS AND HS SUBQ 09/09/19 21:00 12/08/19 20:59 09/13/19 06:32 Magnesium Hydroxide (Mom) 30 ml Q4H PRN ORAL Constipation 09/10/19 17:15 10/10/19 17:14 09/10/19 21:48 Metoprolol Tartrate (Lopressor) 25 mg Q12HR ORAL 09/10/19 21:00 12/09/19 20:59 09/12/19 09:26 Nateglinide (Starlix) 60 mg TIAC ORAL 09/11/19 06:30 10/11/19 06:29 09/13/19 06:31 Nitroglycerin (Ntg) 1 patch Q24H TDERMAL 09/10/19 13:30 10/10/19 13:29 09/12/19 12:39 Pantoprazole (Protonix) 40 mg EVERY 12 HOURS ORAL 09/09/19 21:00 10/09/19 20:59 09/12/19 21:02 Sennosides (Senokot) 8.6 mg DAILY ORAL 09/11/19 09:00 10/11/19 08:59 09/11/19 09:16 Sitagliptin Phosphate (Januvia) 50 mg ACBREAKFAST ORAL 09/11/19 06:30 10/11/19 06:29 09/13/19 06:31 Assessment/Plan Assessment/Plan IMPRESSION: 1. Altered mental status. 2. UTI. 3. Diabetes mellitus. 4. Hypertension. 5. Renal failure. 6. Elevated D-dimer. DISCUSSION: His inflammatory markers are abnormal. He is negative for COVID 19 pcr On full dose Lovenox Continue broad-spectrum antibiotics. I will follow carefully. Saturations normal on RA Armand Soto Omar Syed MD Sep 13, 2019 08:06
--- NOTE | 2019-09-13 08:14 | Hematology/Onc Progress Note ---
Assessment/Plan Assessment/Plan Assessment and Recs # Elevated didmer in the setting of ALOC, sepsis, r./o covid19 --> r/o underlying infection, imaging reviewed --> has been started initially on heparin gtt, now on lovenox sq --> duplex lower extremity ordered, wilian Rn-->neg --> pulm eval prn with Dr. Duran # Leukocytosis r/o underlying infection --> may also be elevated due to been given steriods # Dehydration --> goal of euvolemia --> ivfs started # UTI, Urine positive for UTI -> abx as per id # BUN/creatinine elevated. Lactic 2.5. # Hypernatremia with a Na 147, --> ivfs started # Dvt ppx lovenox will change to ppx dose Appreciate consultation and wilian MOFFETT Subjective HEENT: Denies: no symptoms, eye pain, blurred vision, tearing, double vision, ear pain, ear discharge, nose pain, nose congestion, throat pain, throat swelling, mouth pain, mouth swelling, other Cardiovascular: Denies: no symptoms, chest pain, edema, irregular heart rate, lightheadedness, palpitations, syncope, other Respiratory: Denies: no symptoms, cough, shortness of breath, SOB with excertion, SOB at rest, sputum, wheezing, other Genitourinary: Denies: no symptoms, burning, discharge, frequency, flank pain, hematuria, incontinence, pain, urgency, other Neurologic/Psychiatric: Denies: no symptoms, anxiety, depressed, emotional problems, headache, numbness, paresthesia, pre-existing deficit, seizure, tingling, tremors, weakness, other Endocrine: Denies: no symptoms, excessive sweating, flushing, intolerance to cold, intolerance to heat, increased hunger, increased thirst, increased urine, unexplained weight gain, unexplained weight loss, other Hematologic/Lymphatic: Denies: no symptoms, anemia, easy bleeding, easy bruising, adenopathy, other Allergies: Coded Allergies: No Known Allergies (Unverified , 09/08/19) Subjective 09/09 meds reviewed, no bleeding, labs noted, altered, on ctx abx 09/10 no night sweats, meds reviewed, no bleeding, wilian rn, duplex ordered 09/11 awake, aler, no bleeding, meds reviewed, dw rn Objective Objective Current Medications Medications (Trade) Dose Ordered Sig/Karyna Route PRN Reason Start Time Stop Time Status Last Admin Dose Admin Acetaminophen (Tylenol) 500 mg Q4H PRN ORAL Mild Pain (Pain Scale 1-3) 09/09/19 02:00 10/09/19 01:59 09/12/19 21:00 Aspirin (ASA) 81 mg DAILY ORAL 09/09/19 10:30 10/24/19 10:29 09/12/19 09:25 Atorvastatin Calcium (Lipitor) 20 mg BEDTIME ORAL 09/10/19 21:00 12/09/19 20:59 09/12/19 21:02 Bisacodyl (Dulcolax) 10 mg QHS ORAL 09/10/19 21:00 12/09/19 20:59 09/12/19 21:02 Cephalexin (Keflex) 500 mg Q12H ORAL 09/11/19 21:00 09/18/19 20:59 09/12/19 21:04 Dextrose (Dextrose 50%) 25 ml Q30M PRN IV Hypoglycemia 09/09/19 17:30 12/08/19 17:29 Dextrose (Dextrose 50%) 50 ml Q30M PRN IV Hypoglycemia 09/09/19 17:30 12/08/19 17:29 Docusate Sodium (Colace) 100 mg THREE TIMES A DAY ORAL 09/09/19 13:00 10/09/19 12:59 09/11/19 09:18 Enoxaparin Sodium (Lovenox) 100 mg Q24H SUBQ 09/09/19 09:00 12/08/19 08:59 09/12/19 09:27 Fish Oil (Fish Oil) 1,000 mg BID ORAL 09/10/19 18:00 10/10/19 17:59 09/12/19 17:44 Hydralazine HCl (Apresoline) 25 mg Q4H PRN ORAL BP over 160 systolic 09/09/19 10:00 12/08/19 09:59 Insulin Aspart (NovoLOG) BEFORE MEALS AND HS SUBQ 09/09/19 21:00 12/08/19 20:59 09/13/19 06:32 Magnesium Hydroxide (Mom) 30 ml Q4H PRN ORAL Constipation 09/10/19 17:15 10/10/19 17:14 09/10/19 21:48 Metoprolol Tartrate (Lopressor) 25 mg Q12HR ORAL 09/10/19 21:00 12/09/19 20:59 09/12/19 09:26 Nateglinide (Starlix) 60 mg TIAC ORAL 09/11/19 06:30 10/11/19 06:29 09/13/19 06:31 Nitroglycerin (Ntg) 1 patch Q24H TDERMAL 09/10/19 13:30 10/10/19 13:29 09/12/19 12:39 Pantoprazole (Protonix) 40 mg EVERY 12 HOURS ORAL 09/09/19 21:00 10/09/19 20:59 09/12/19 21:02 Sennosides (Senokot) 8.6 mg DAILY ORAL 09/11/19 09:00 10/11/19 08:59 09/11/19 09:16 Sitagliptin Phosphate (Januvia) 50 mg ACBREAKFAST ORAL 09/11/19 06:30 10/11/19 06:29 09/13/19 06:31 Last 24 Hour Vital Signs Date Time Temp Pulse Resp B/P (MAP) Pulse Ox O2 Delivery O2 Flow Rate FiO2 09/13/19 04:00 97.7 60 18 127/66 (86) 96 09/13/19 04:00 59 09/13/19 00:00 60 09/13/19 00:00 97.7 60 18 151/77 (101) 96 09/12/19 21:00 Room Air 09/12/19 21:00 60 143/73 09/12/19 20:00 60 09/12/19 20:00 97.7 60 18 143/73 (96) 97 09/12/19 16:00 58 09/12/19 16:00 98.4 67 21 110/74 (86) 98 09/12/19 12:39 110/74 09/12/19 12:00 54 09/12/19 12:00 98.3 80 20 110/74 (86) 98 09/12/19 09:26 64 118/62 09/12/19 09:00 Room Air 09/12/19 08:00 97.7 64 17 118/62 (80) 98 09/12/19 08:00 89 09/12/19 04:00 97.2 63 16 124/71 (88) 98 09/12/19 04:00 65 09/12/19 00:00 96.9 63 16 116/68 (84) 98 09/12/19 00:00 74 09/11/19 21:00 85 164/98 09/11/19 21:00 Room Air 09/11/19 20:00 63 09/11/19 20:00 97.7 66 20 111/62 (78) 98 09/11/19 16:00 65 09/11/19 16:00 97.5 66 20 111/62 (78) 98 09/11/19 12:37 113/57 09/11/19 12:36 69 113/57 (75) 09/11/19 12:00 64 09/11/19 12:00 97.5 78 20 95/50 (65) 98 09/11/19 09:17 71 110/60 09/11/19 08:23 Room Air Intake and Output 09/12/19 09/13/19 19:00 07:00 Intake Total 480 ml Output Total 600 ml 500 ml Balance -120 ml -500 ml Intake Oral 480 ml Output Urine Total 600 ml 500 ml Labs Test 09/10/19 08:40 09/10/19 13:13 09/10/19 16:49 09/10/19 20:42 White Blood Count 16.4 K/UL (4.8-10.8) Red Blood Count 4.22 M/UL (4.70-6.10) Hemoglobin 14.0 G/DL (14.2-18.0) Hematocrit 42.1 % (42.0-52.0) Mean Corpuscular Volume 100 FL (80-99) Mean Corpuscular Hemoglobin 33.2 PG (27.0-31.0) Mean Corpuscular Hemoglobin Concent 33.3 G/DL (32.0-36.0) Red Cell Distribution Width 10.8 % (11.6-14.8) Platelet Count 193 K/UL (150-450) Mean Platelet Volume 7.7 FL (6.5-10.1) Neutrophils (%) (Auto) % (45.0-75.0) Lymphocytes (%) (Auto) % (20.0-45.0) Monocytes (%) (Auto) % (1.0-10.0) Eosinophils (%) (Auto) % (0.0-3.0) Basophils (%) (Auto) % (0.0-2.0) Differential Total Cells Counted 100 Neutrophils % (Manual) 89 % (45-75) Lymphocytes % (Manual) 9 % (20-45) Monocytes % (Manual) 2 % (1-10) Eosinophils % (Manual) 0 % (0-3) Basophils % (Manual) 0 % (0-2) Band Neutrophils 0 % (0-8) Platelet Estimate Adequate Platelet Morphology Normal Macrocytosis 1+ D-Dimer 27.71 mg/L FEU (0.00-0.49) Sodium Level 141 MMOL/L (136-145) Potassium Level 3.9 MMOL/L (3.5-5.1) Chloride Level 107 MMOL/L (98-107) Carbon Dioxide Level 24 MMOL/L (21-32) Anion Gap 10 mmol/L (5-15) Blood Urea Nitrogen 33 mg/dL (7-18) Creatinine 1.9 MG/DL (0.55-1.30) Estimat Glomerular Filtration Rate 41.9 mL/min (>60) Glucose Level 208 MG/DL (74-106) Uric Acid 7.2 MG/DL (2.6-7.2) Calcium Level 7.9 MG/DL (8.5-10.1) Phosphorus Level 2.9 MG/DL (2.5-4.9) Magnesium Level 1.9 MG/DL (1.8-2.4) Total Bilirubin 0.9 MG/DL (0.2-1.0) Aspartate Amino Transf (AST/SGOT) 25 U/L (15-37) Alanine Aminotransferase (ALT/SGPT) 30 U/L (12-78) Alkaline Phosphatase 68 U/L (46-116) Troponin I 0.187 ng/mL (0.000-0.056) C-Reactive Protein, Quantitative 0.7 mg/dL (0.00-0.90) Pro-B-Type Natriuretic Peptide 841 pg/mL (0-125) Total Protein 6.9 G/DL (6.4-8.2) Albumin 3.1 G/DL (3.4-5.0) Globulin 3.8 g/dL Albumin/Globulin Ratio 0.8 (1.0-2.7) Triglycerides Level 161 MG/DL (30-150) Cholesterol Level 134 MG/DL (< 200) LDL Cholesterol 78 mg/dL (<100) HDL Cholesterol 29 MG/DL (40-60) Cholesterol/HDL Ratio 4.6 (3.3-4.4) Thyroid Stimulating Hormone (TSH) 0.439 uiU/mL (0.358-3.740) POC Whole Blood Glucose 201 MG/DL (74-106) 166 MG/DL (74-106) 178 MG/DL (74-106) Test 09/11/19 04:30 09/11/19 06:24 09/11/19 07:55 09/11/19 11:04 Urine Eosinophils None seen (NONE SEEN) POC Whole Blood Glucose 170 MG/DL (74-106) 119 MG/DL (74-106) Sodium Level 139 MMOL/L (136-145) Potassium Level 3.4 MMOL/L (3.5-5.1) Chloride Level 104 MMOL/L (98-107) Carbon Dioxide Level 25 MMOL/L (21-32) Anion Gap 10 mmol/L (5-15) Blood Urea Nitrogen 25 mg/dL (7-18) Creatinine 1.6 MG/DL (0.55-1.30) Estimat Glomerular Filtration Rate 51.1 mL/min (>60) Glucose Level 173 MG/DL (74-106) Calcium Level 8.0 MG/DL (8.5-10.1) Phosphorus Level 2.4 MG/DL (2.5-4.9) Magnesium Level 1.9 MG/DL (1.8-2.4) Total Bilirubin 0.8 MG/DL (0.2-1.0) Aspartate Amino Transf (AST/SGOT) 10 U/L (15-37) Alanine Aminotransferase (ALT/SGPT) 27 U/L (12-78) Alkaline Phosphatase 67 U/L (46-116) Troponin I 0.071 ng/mL (0.000-0.056) Total Protein 6.6 G/DL (6.4-8.2) Albumin 3.0 G/DL (3.4-5.0) Globulin 3.6 g/dL Albumin/Globulin Ratio 0.8 (1.0-2.7) Triglycerides Level 257 MG/DL (30-150) Cholesterol Level 137 MG/DL (< 200) LDL Cholesterol 74 mg/dL (<100) HDL Cholesterol 26 MG/DL (40-60) Cholesterol/HDL Ratio 5.3 (3.3-4.4) Test 09/11/19 16:45 09/11/19 21:20 09/12/19 10:45 09/12/19 11:57 POC Whole Blood Glucose 152 MG/DL (74-106) 159 MG/DL (74-106) White Blood Count 7.7 K/UL (4.8-10.8) Red Blood Count 4.21 M/UL (4.70-6.10) Hemoglobin 14.0 G/DL (14.2-18.0) Hematocrit 41.4 % (42.0-52.0) Mean Corpuscular Volume 98 FL (80-99) Mean Corpuscular Hemoglobin 33.3 PG (27.0-31.0) Mean Corpuscular Hemoglobin Concent 33.9 G/DL (32.0-36.0) Red Cell Distribution Width 10.7 % (11.6-14.8) Platelet Count 191 K/UL (150-450) Mean Platelet Volume 6.7 FL (6.5-10.1) Neutrophils (%) (Auto) 67.8 % (45.0-75.0) Lymphocytes (%) (Auto) 19.7 % (20.0-45.0) Monocytes (%) (Auto) 7.0 % (1.0-10.0) Eosinophils (%) (Auto) 4.4 % (0.0-3.0) Basophils (%) (Auto) 1.1 % (0.0-2.0) Sodium Level 138 MMOL/L (136-145) Potassium Level 4.1 MMOL/L (3.5-5.1) Chloride Level 104 MMOL/L (98-107) Carbon Dioxide Level 28 MMOL/L (21-32) Anion Gap 6 mmol/L (5-15) Blood Urea Nitrogen 17 mg/dL (7-18) Creatinine 1.5 MG/DL (0.55-1.30) Estimat Glomerular Filtration Rate 55.1 mL/min (>60) Glucose Level 164 MG/DL (74-106) Calcium Level 8.5 MG/DL (8.5-10.1) Phosphorus Level 2.8 MG/DL (2.5-4.9) Magnesium Level 2.1 MG/DL (1.8-2.4) Total Bilirubin 0.7 MG/DL (0.2-1.0) Aspartate Amino Transf (AST/SGOT) 30 U/L (15-37) Alanine Aminotransferase (ALT/SGPT) 36 U/L (12-78) Alkaline Phosphatase 81 U/L (46-116) C-Reactive Protein, Quantitative 1.3 mg/dL (0.00-0.90) Pro-B-Type Natriuretic Peptide 721 pg/mL (0-125) Total Protein 5.8 G/DL (6.4-8.2) Albumin 2.8 G/DL (3.4-5.0) Globulin 3.0 g/dL Albumin/Globulin Ratio 0.9 (1.0-2.7) Test 09/12/19 16:14 09/12/19 20:54 09/13/19 06:06 POC Whole Blood Glucose 161 MG/DL (74-106) 130 MG/DL (74-106) 150 MG/DL (74-106) Height (Feet): 6 Height (Inches): 0.00 Weight (Pounds): 210 Objective General: no apparent distress, GCS 15, non-toxic, lethargic HEENT: normal ENT inspection Neck: normal inspection Respiratory: chest non-tender, lungs clear, normal breath sounds, speaking full sentences Cardiovascular: tachycardia Gastrointestinal: normal bowel sounds, non tender Genitourinary: no CVA tenderness Musculoskeletal: normal inspection Neurologic: other - AMS Psychiatric: other - AMS Skin: other - see nrusing notes Lymphatic: normal inspection Lewis Bourne MD Sep 13, 2019 08:14
--- NOTE | 2019-09-13 08:14 | General Progress Note ---
Assessment/Plan Problem List: (1) Diabetes mellitus out of control ICD Codes: E11.65 - Type 2 diabetes mellitus with hyperglycemia SNOMED: 72067366, 749996808 (2) Suspected 2019 novel coronavirus infection ICD Codes: Z20.828 - Contact with and (suspected) exposure to other viral communicable diseases SNOMED: 968079189 (3) Sepsis ICD Codes: A41.9 - Sepsis, unspecified organism SNOMED: 89135051 Qualifiers: Qualified Codes: A41.9 - Sepsis, unspecified organism (4) Dehydration ICD Codes: E86.0 - Dehydration SNOMED: 43669374 (5) Renal failure ICD Codes: N19 - Unspecified kidney failure SNOMED: 13018463 Qualifiers: Qualified Codes: N17.9 - Acute kidney failure, unspecified (6) UTI (urinary tract infection) ICD Codes: N39.0 - Urinary tract infection, site not specified SNOMED: 76589878 Qualifiers: Qualified Codes: N39.0 - Urinary tract infection, site not specified (7) Altered level of consciousness ICD Codes: R40.4 - Transient alteration of awareness SNOMED: 1852597 (8) Renal failure (ARF), acute on chronic ICD Codes: N17.9 - Acute kidney failure, unspecified; N18.9 - Chronic kidney disease, unspecified SNOMED: 507768606 (9) Fever ICD Codes: R50.9 - Fever, unspecified SNOMED: 172099881 Qualifiers: Qualified Codes: R50.9 - Fever, unspecified Assessment/Plan: continue Januvia 50 mg daily continue Starlix 60 mg ac tid continue Novolog sliding scale ac / hs hypoglycemic protocol in order no need for insulin after discharge Subjective Allergies: Coded Allergies: No Known Allergies (Unverified , 09/08/19) All Systems: reviewed and negative except above Subjective events noted glucose values are stable without hypoglycemia Item Value Date Time Bedside Blood Glucose 150 mg/dl H 09/13/19 0632 Bedside Blood Glucose 130 mg/dl H 09/12/19 2100 Bedside Blood Glucose 161 mg/dl H 09/12/19 1627 Bedside Blood Glucose 159 mg/dl H 09/12/19 1236 Objective Last 24 Hour Vital Signs Date Time Temp Pulse Resp B/P (MAP) Pulse Ox O2 Delivery O2 Flow Rate FiO2 09/13/19 04:00 97.7 60 18 127/66 (86) 96 09/13/19 04:00 59 09/13/19 00:00 60 09/13/19 00:00 97.7 60 18 151/77 (101) 96 09/12/19 21:00 Room Air 09/12/19 21:00 60 143/73 09/12/19 20:00 60 09/12/19 20:00 97.7 60 18 143/73 (96) 97 09/12/19 16:00 58 09/12/19 16:00 98.4 67 21 110/74 (86) 98 09/12/19 12:39 110/74 09/12/19 12:00 54 09/12/19 12:00 98.3 80 20 110/74 (86) 98 09/12/19 09:26 64 118/62 09/12/19 09:00 Room Air Intake and Output 09/12/19 09/13/19 18:59 06:59 Intake Total 480 ml Output Total 600 ml 500 ml Balance -120 ml -500 ml Intake Oral 480 ml Output Urine Total 600 ml 500 ml Laboratory Tests 09/12/19 10:45: White Blood Count 7.7, Red Blood Count 4.21L, Hemoglobin 14.0L, Hematocrit 41.4L , Mean Corpuscular Volume 98, Mean Corpuscular Hemoglobin 33.3H, Mean Corpuscular Hemoglobin Concent 33.9, Red Cell Distribution Width 10.7L, Platelet Count 191, Mean Platelet Volume 6.7, Neutrophils (%) (Auto) 67.8, Lymphocytes (%) (Auto) 19.7L, Monocytes (%) (Auto) 7.0, Eosinophils (%) (Auto) 4.4H, Basophils (%) (Auto) 1.1, Sodium Level 138, Potassium Level 4.1, Chloride Level 104, Carbon Dioxide Level 28, Anion Gap 6, Blood Urea Nitrogen 17, Creatinine 1.5H, Estimat Glomerular Filtration Rate 55.1, Glucose Level 164H, Calcium Level 8.5, Calcium (Send out) [Pending], Phosphorus Level 2.8, Magnesium Level 2.1, Total Bilirubin 0.7, Aspartate Amino Transf (AST/SGOT) 30, Alanine Aminotransferase (ALT/SGPT) 36, Alkaline Phosphatase 81, C-Reactive Protein, Quantitative 1.3H, Pro-B-Type Natriuretic Peptide 721H, Total Protein 5.8L, Albumin 2.8L, Globulin 3.0, Albumin/Globulin Ratio 0.9L, Parathyroid Hormone (Intact) [Pending] 09/12/19 11:57: POC Whole Blood Glucose 159H 09/12/19 16:14: POC Whole Blood Glucose 161H 09/12/19 20:54: POC Whole Blood Glucose 130H 09/13/19 06:06: POC Whole Blood Glucose 150H Height (Feet): 6 Height (Inches): 0.00 Weight (Pounds): 210 General Appearance: no apparent distress Neck: normal alignment Cardiovascular: normal rate Respiratory/Chest: lungs clear Abdomen: normal bowel sounds Pelvis: normal external exam Objective Current Medications Medications (Trade) Dose Ordered Sig/Karyna Route PRN Reason Start Time Stop Time Status Last Admin Dose Admin Acetaminophen (Tylenol) 500 mg Q4H PRN ORAL Mild Pain (Pain Scale 1-3) 09/09/19 02:00 10/09/19 01:59 09/12/19 21:00 Aspirin (ASA) 81 mg DAILY ORAL 09/09/19 10:30 10/24/19 10:29 09/12/19 09:25 Atorvastatin Calcium (Lipitor) 20 mg BEDTIME ORAL 09/10/19 21:00 12/09/19 20:59 09/12/19 21:02 Bisacodyl (Dulcolax) 10 mg QHS ORAL 09/10/19 21:00 12/09/19 20:59 09/12/19 21:02 Cephalexin (Keflex) 500 mg Q12H ORAL 09/11/19 21:00 09/18/19 20:59 09/12/19 21:04 Dextrose (Dextrose 50%) 25 ml Q30M PRN IV Hypoglycemia 09/09/19 17:30 12/08/19 17:29 Dextrose (Dextrose 50%) 50 ml Q30M PRN IV Hypoglycemia 09/09/19 17:30 12/08/19 17:29 Docusate Sodium (Colace) 100 mg THREE TIMES A DAY ORAL 09/09/19 13:00 10/09/19 12:59 09/11/19 09:18 Enoxaparin Sodium (Lovenox) 100 mg Q24H SUBQ 09/09/19 09:00 12/08/19 08:59 09/12/19 09:27 Fish Oil (Fish Oil) 1,000 mg BID ORAL 09/10/19 18:00 10/10/19 17:59 09/12/19 17:44 Hydralazine HCl (Apresoline) 25 mg Q4H PRN ORAL BP over 160 systolic 09/09/19 10:00 12/08/19 09:59 Insulin Aspart (NovoLOG) BEFORE MEALS AND HS SUBQ 09/09/19 21:00 12/08/19 20:59 09/13/19 06:32 Magnesium Hydroxide (Mom) 30 ml Q4H PRN ORAL Constipation 09/10/19 17:15 10/10/19 17:14 09/10/19 21:48 Metoprolol Tartrate (Lopressor) 25 mg Q12HR ORAL 09/10/19 21:00 12/09/19 20:59 09/12/19 09:26 Nateglinide (Starlix) 60 mg TIAC ORAL 09/11/19 06:30 10/11/19 06:29 09/13/19 06:31 Nitroglycerin (Ntg) 1 patch Q24H TDERMAL 09/10/19 13:30 10/10/19 13:29 09/12/19 12:39 Pantoprazole (Protonix) 40 mg EVERY 12 HOURS ORAL 09/09/19 21:00 10/09/19 20:59 09/12/19 21:02 Sennosides (Senokot) 8.6 mg DAILY ORAL 09/11/19 09:00 10/11/19 08:59 09/11/19 09:16 Sitagliptin Phosphate (Januvia) 50 mg ACBREAKFAST ORAL 09/11/19 06:30 10/11/19 06:29 09/13/19 06:31 Werner Barth MD Sep 13, 2019 08:14
--- NOTE | 2019-09-13 09:47 | Nephrology Progress Note ---
Assessment/Plan Problem List: (1) Renal failure (ARF), acute on chronic (2) Dehydration (3) Sepsis (4) UTI (urinary tract infection) Assessment This 74-year-old male presented to emergency room with fever, leukocytosis, evidence of UTI/sepsis He has leukocytosis and increased d-dimer, suspected 2019 novel coronavirus infection, however the first test is negative Renal impression: Acute on chronic kidney disease Superimposed dehydration Underlying diabetic nephropathy Diabetes mellitus [id number] Plan Stable from renal standpoint of view serum creatinine 1.5 today Other parameters and electrolytes stable Previously: Add Nitropaste for elevated troponin Add fish oil Slow IV hydration Monitor renal parameters Patient has a Carmen catheter Avoid nephrotoxic's On diabetic friendly diet now Keep the blood pressure and blood sugar in check Per orders Discussed with RN Subjective ROS Limited/Unobtainable: No Constitutional: Reports: malaise Objective Objective Last 24 Hour Vital Signs Date Time Temp Pulse Resp B/P (MAP) Pulse Ox O2 Delivery O2 Flow Rate FiO2 09/13/19 08:00 98.1 62 20 114/96 (102) 96 09/13/19 04:00 97.7 60 18 127/66 (86) 96 09/13/19 04:00 59 09/13/19 00:00 60 09/13/19 00:00 97.7 60 18 151/77 (101) 96 09/12/19 21:00 Room Air 09/12/19 21:00 60 143/73 09/12/19 20:00 60 09/12/19 20:00 97.7 60 18 143/73 (96) 97 09/12/19 16:00 58 09/12/19 16:00 98.4 67 21 110/74 (86) 98 09/12/19 12:39 110/74 09/12/19 12:00 54 09/12/19 12:00 98.3 80 20 110/74 (86) 98 Intake and Output 09/12/19 09/13/19 19:00 07:00 Intake Total 480 ml Output Total 600 ml 500 ml Balance -120 ml -500 ml Intake Oral 480 ml Output Urine Total 600 ml 500 ml Laboratory Tests 09/12/19 10:45: White Blood Count 7.7, Red Blood Count 4.21L, Hemoglobin 14.0L, Hematocrit 41.4L , Mean Corpuscular Volume 98, Mean Corpuscular Hemoglobin 33.3H, Mean Corpuscular Hemoglobin Concent 33.9, Red Cell Distribution Width 10.7L, Platelet Count 191, Mean Platelet Volume 6.7, Neutrophils (%) (Auto) 67.8, Lymphocytes (%) (Auto) 19.7L, Monocytes (%) (Auto) 7.0, Eosinophils (%) (Auto) 4.4H, Basophils (%) (Auto) 1.1, Sodium Level 138, Potassium Level 4.1, Chloride Level 104, Carbon Dioxide Level 28, Anion Gap 6, Blood Urea Nitrogen 17, Creatinine 1.5H, Estimat Glomerular Filtration Rate 55.1, Glucose Level 164H, Calcium Level 8.5, Calcium (Send out) [Pending], Phosphorus Level 2.8, Magnesium Level 2.1, Total Bilirubin 0.7, Aspartate Amino Transf (AST/SGOT) 30, Alanine Aminotransferase (ALT/SGPT) 36, Alkaline Phosphatase 81, C-Reactive Protein, Quantitative 1.3H, Pro-B-Type Natriuretic Peptide 721H, Total Protein 5.8L, Albumin 2.8L, Globulin 3.0, Albumin/Globulin Ratio 0.9L, Parathyroid Hormone (Intact) [Pending] 09/12/19 11:57: POC Whole Blood Glucose 159H 09/12/19 16:14: POC Whole Blood Glucose 161H 09/12/19 20:54: POC Whole Blood Glucose 130H 09/13/19 06:06: POC Whole Blood Glucose 150H Height (Feet): 6 Height (Inches): 0.00 Weight (Pounds): 210 General Appearance: no apparent distress Cardiovascular: normal rate Respiratory/Chest: decreased breath sounds Abdomen: soft, distended Wild Kraft MD Sep 13, 2019 09:47
[2019-09-13] MEDS: Aspirin Baby 81mg ORAL SCH (09:51)
[2019-09-13] MEDS: Sennosides 8.6mg tab ORAL SCH (09:52)
[2019-09-13] MEDS: Docusate 100mg cap ORAL SCH ×3 (09:52→17:15)
[2019-09-13] MEDS: Enoxaparin 40mg Inj SUBQ SCH (09:53)
[2019-09-13] MEDS: Cephalexin 500mg cap ORAL SCH ×2 (09:57→21:30)
--- NOTE | 2019-09-13 11:22 | Infectious Diseases Prog Note ---
Assessment/Plan Assessment/Plan IMPRESSION: Sepsis improving UTI with E. coli Positive blood culture likely contamination Negative COVID19 test, Acute renal failure, improving Diabetes with hyperglycemia, Hypertension, history of CVA and left hemiparesis. Cardiac ischemia RECOMMENDATION: Continue with ceftriaxone. We will follow up the cultures. Subjective ROS Limited/Unobtainable: Yes Constitutional: Denies: fever Allergies: Coded Allergies: No Known Allergies (Unverified , 09/08/19) Objective Last 24 Hour Vital Signs Date Time Temp Pulse Resp B/P (MAP) Pulse Ox O2 Delivery O2 Flow Rate FiO2 09/13/19 09:52 65 114/96 09/13/19 08:00 65 09/13/19 08:00 98.1 62 20 114/96 (102) 96 09/13/19 04:00 97.7 60 18 127/66 (86) 96 09/13/19 04:00 59 09/13/19 00:00 60 09/13/19 00:00 97.7 60 18 151/77 (101) 96 09/12/19 21:00 Room Air 09/12/19 21:00 60 143/73 09/12/19 20:00 60 09/12/19 20:00 97.7 60 18 143/73 (96) 97 09/12/19 16:00 58 09/12/19 16:00 98.4 67 21 110/74 (86) 98 09/12/19 12:39 110/74 09/12/19 12:00 54 09/12/19 12:00 98.3 80 20 110/74 (86) 98 Height (Feet): 6 Height (Inches): 0.00 Weight (Pounds): 210 General Appearance: no acute distress HEENT: mucous membranes moist Respiratory/Chest: lungs clear Cardiovascular: normal rate Abdomen: soft, non tender Extremities: no edema Neurologic/Psychiatric: other - sleeping Laboratory Tests Test 09/12/19 11:57 09/12/19 16:14 09/12/19 20:54 09/13/19 06:06 POC Whole Blood Glucose 159 MG/DL (74-106) H 161 MG/DL (74-106) H 130 MG/DL (74-106) H 150 MG/DL (74-106) H Current Medications Medications (Trade) Dose Ordered Sig/Karyna Route PRN Reason Start Time Stop Time Status Last Admin Dose Admin Acetaminophen (Tylenol) 500 mg Q4H PRN ORAL Mild Pain (Pain Scale 1-3) 09/09/19 02:00 10/09/19 01:59 09/12/19 21:00 Aspirin (ASA) 81 mg DAILY ORAL 09/09/19 10:30 10/24/19 10:29 09/13/19 09:51 Atorvastatin Calcium (Lipitor) 20 mg BEDTIME ORAL 09/10/19 21:00 12/09/19 20:59 09/12/19 21:02 Bisacodyl (Dulcolax) 10 mg QHS ORAL 09/10/19 21:00 12/09/19 20:59 09/12/19 21:02 Cephalexin (Keflex) 500 mg Q12H ORAL 09/11/19 21:00 09/18/19 20:59 09/13/19 09:57 Dextrose (Dextrose 50%) 25 ml Q30M PRN IV Hypoglycemia 09/09/19 17:30 12/08/19 17:29 Dextrose (Dextrose 50%) 50 ml Q30M PRN IV Hypoglycemia 09/09/19 17:30 12/08/19 17:29 Docusate Sodium (Colace) 100 mg THREE TIMES A DAY ORAL 09/09/19 13:00 10/09/19 12:59 09/13/19 09:52 Enoxaparin Sodium (Lovenox) 40 mg DAILY SUBQ 09/13/19 09:00 12/12/19 08:59 09/13/19 09:53 Fish Oil (Fish Oil) 1,000 mg BID ORAL 09/10/19 18:00 10/10/19 17:59 09/13/19 09:52 Hydralazine HCl (Apresoline) 25 mg Q4H PRN ORAL BP over 160 systolic 09/09/19 10:00 12/08/19 09:59 Insulin Aspart (NovoLOG) BEFORE MEALS AND HS SUBQ 09/09/19 21:00 12/08/19 20:59 09/13/19 06:32 Magnesium Hydroxide (Mom) 30 ml Q4H PRN ORAL Constipation 09/10/19 17:15 10/10/19 17:14 09/10/19 21:48 Metoprolol Tartrate (Lopressor) 25 mg Q12HR ORAL 09/10/19 21:00 12/09/19 20:59 09/13/19 09:52 Nateglinide (Starlix) 60 mg TIAC ORAL 09/11/19 06:30 10/11/19 06:29 09/13/19 06:31 Nitroglycerin (Ntg) 1 patch Q24H TDERMAL 09/10/19 13:30 10/10/19 13:29 09/12/19 12:39 Pantoprazole (Protonix) 40 mg EVERY 12 HOURS ORAL 09/09/19 21:00 10/09/19 20:59 09/13/19 09:52 Sennosides (Senokot) 8.6 mg DAILY ORAL 09/11/19 09:00 10/11/19 08:59 09/13/19 09:52 Sitagliptin Phosphate (Januvia) 50 mg ACBREAKFAST ORAL 09/11/19 06:30 10/11/19 06:29 09/13/19 06:31 Nacho Angulo MD Sep 13, 2019 11:22
[2019-09-13] MEDS: Nitroglycerin Patch 0.4mg TDERMAL SCH (13:18)
[2019-09-13] MEDS ORDERED: 1/2 NS 1000ml IV ONE (13:31)
--- NOTE | 2019-09-13 16:43 | Cardiac Electrophysiology PN ---
Assessment/Plan Assessment/Plan 1. Hypertension. On Lopressor 25 bid and p.r.n. hydralazine 2. NSTEMI with elevated troponin and Inferolateral ischemia. Denies any chest pain. EF 55%. Has first-degree AV block. On Aspirin and Lopressor. Troponin 0.8 3. Shortness of breath, ruled out for COVID and started on Abx 4. Elevated D-dimer. Lower extremity duplex negative for DVT 5. Renal failure with Cr 1.9 6. Bacteremia and UTI on Cephalexin. May need MARILIN if persistent bacteremia DW RN Subjective Subjective In SR with first degree AVB. On Abx for positive Blood Cx and UTI Objective Last 24 Hour Vital Signs Date Time Temp Pulse Resp B/P (MAP) Pulse Ox O2 Delivery O2 Flow Rate FiO2 09/13/19 13:18 141/66 09/13/19 12:55 96.6 55 20 141/66 (91) 96 09/13/19 12:00 80 09/13/19 09:52 65 114/96 09/13/19 08:00 65 09/13/19 08:00 98.1 62 20 114/96 (102) 96 09/13/19 04:00 97.7 60 18 127/66 (86) 96 09/13/19 04:00 59 09/13/19 00:00 60 09/13/19 00:00 97.7 60 18 151/77 (101) 96 09/12/19 21:00 Room Air 09/12/19 21:00 60 143/73 09/12/19 20:00 60 09/12/19 20:00 97.7 60 18 143/73 (96) 97 Intake and Output 09/12/19 09/13/19 19:00 07:00 Intake Total 480 ml Output Total 600 ml 500 ml Balance -120 ml -500 ml Intake Oral 480 ml Output Urine Total 600 ml 500 ml Laboratory Tests Test 09/12/19 20:54 09/13/19 06:06 09/13/19 12:00 09/13/19 16:28 POC Whole Blood Glucose 130 MG/DL (74-106) H 150 MG/DL (74-106) H 126 MG/DL (74-106) H Pending Objective NECK: No JVD. LUNGS: Clear. CARDIOVASCULAR: Regular S1 and S2 with no gallop or murmur. ABDOMEN: Soft. EXTREMITIES: No pitting edema. Rick Torres MD Sep 13, 2019 16:43
[2019-09-13] MEDS: Bisacodyl EC 5mg tab ORAL SCH (21:30)
[2019-09-13] MEDS: Atorvastatin 20mg tab ORAL SCH (21:30)
--- NOTE | 2019-09-13 23:38 | General Progress Note ---
Assessment/Plan Problem List: (1) Sepsis ICD Codes: A41.9 - Sepsis, unspecified organism SNOMED: 84553558 Qualifiers: Qualified Codes: A41.9 - Sepsis, unspecified organism (2) Renal failure ICD Codes: N19 - Unspecified kidney failure SNOMED: 33851290 Qualifiers: Qualified Codes: N17.9 - Acute kidney failure, unspecified (3) Dehydration ICD Codes: E86.0 - Dehydration SNOMED: 23252088 (4) UTI (urinary tract infection) ICD Codes: N39.0 - Urinary tract infection, site not specified SNOMED: 72920726 Qualifiers: Qualified Codes: N39.0 - Urinary tract infection, site not specified (5) Fever ICD Codes: R50.9 - Fever, unspecified SNOMED: 833542987 Qualifiers: Qualified Codes: R50.9 - Fever, unspecified (6) Suspected 2019 novel coronavirus infection ICD Codes: Z20.828 - Contact with and (suspected) exposure to other viral communicable diseases SNOMED: 023363397 (7) Renal failure (ARF), acute on chronic ICD Codes: N17.9 - Acute kidney failure, unspecified; N18.9 - Chronic kidney disease, unspecified SNOMED: 169899893 Status: progressing Assessment/Plan: h/o covid positive pna arf hypokalemia resolved leukocytosis improving sepsis abxp er id Subjective ROS Limited/Unobtainable: Yes Allergies: Coded Allergies: No Known Allergies (Unverified , 09/08/19) Objective Last 24 Hour Vital Signs Date Time Temp Pulse Resp B/P (MAP) Pulse Ox O2 Delivery O2 Flow Rate FiO2 09/13/19 21:00 Room Air 09/13/19 21:00 55 145/73 09/13/19 20:00 97.9 55 20 145/73 (97) 97 09/13/19 20:00 58 09/13/19 16:00 58 09/13/19 16:00 97.5 62 20 123/60 (81) 92 09/13/19 13:18 141/66 09/13/19 12:55 96.6 55 20 141/66 (91) 96 09/13/19 12:00 80 09/13/19 12:00 96.6 55 20 141/66 (91) 96 09/13/19 09:52 65 114/96 09/13/19 09:00 Room Air 09/13/19 08:00 65 09/13/19 08:00 98.1 62 20 114/96 (102) 96 09/13/19 04:00 97.7 60 18 127/66 (86) 96 09/13/19 04:00 59 09/13/19 00:00 60 09/13/19 00:00 97.7 60 18 151/77 (101) 96 Intake and Output 09/12/19 09/13/19 19:00 07:00 Intake Total 480 ml Output Total 600 ml 500 ml Balance -120 ml -500 ml Intake Oral 480 ml Output Urine Total 600 ml 500 ml Laboratory Tests 09/13/19 06:06: POC Whole Blood Glucose 150H 09/13/19 12:00: POC Whole Blood Glucose 126H 09/13/19 16:28: POC Whole Blood Glucose [Pending] 09/13/19 20:15: POC Whole Blood Glucose 124H Height (Feet): 6 Height (Inches): 0.00 Weight (Pounds): 210 Julia Warner MD Sep 13, 2019 23:38
[2019-09-14] VITALS: BP 155/74
[2019-09-14 04:00] VITALS: BP 142/74
[2019-09-14] MEDS: sitaGLIPtin 50mg tab ORAL SCH (05:51)
[2019-09-14] MEDS: Nateglinide 60mg tab ORAL SCH ×3 (05:51→17:46)
[2019-09-14] MEDS: NovoLOG Insulin Flexpen SUBQ SCH ×4 (05:55→21:00)
--- NOTE | 2019-09-14 06:43 | General Progress Note ---
Assessment/Plan Problem List: (1) Diabetes mellitus out of control ICD Codes: E11.65 - Type 2 diabetes mellitus with hyperglycemia SNOMED: 45983217, 874600704 (2) Suspected 2019 novel coronavirus infection ICD Codes: Z20.828 - Contact with and (suspected) exposure to other viral communicable diseases SNOMED: 869122085 (3) Sepsis ICD Codes: A41.9 - Sepsis, unspecified organism SNOMED: 24765158 Qualifiers: Qualified Codes: A41.9 - Sepsis, unspecified organism (4) Dehydration ICD Codes: E86.0 - Dehydration SNOMED: 54385756 (5) Renal failure ICD Codes: N19 - Unspecified kidney failure SNOMED: 27926089 Qualifiers: Qualified Codes: N17.9 - Acute kidney failure, unspecified (6) UTI (urinary tract infection) ICD Codes: N39.0 - Urinary tract infection, site not specified SNOMED: 11062527 Qualifiers: Qualified Codes: N39.0 - Urinary tract infection, site not specified (7) Altered level of consciousness ICD Codes: R40.4 - Transient alteration of awareness SNOMED: 7361620 (8) Renal failure (ARF), acute on chronic ICD Codes: N17.9 - Acute kidney failure, unspecified; N18.9 - Chronic kidney disease, unspecified SNOMED: 889581458 (9) Fever ICD Codes: R50.9 - Fever, unspecified SNOMED: 121952063 Qualifiers: Qualified Codes: R50.9 - Fever, unspecified Status: progressing Assessment/Plan: continue Januvia 50 mg daily continue Starlix 60 mg ac tid continue Novolog sliding scale ac / hs hypoglycemic protocol in order no need for insulin after discharge Subjective Allergies: Coded Allergies: No Known Allergies (Unverified , 09/08/19) Subjective events noted glucose values are stable without hypoglycemia Item Value Date Time Bedside Blood Glucose 130 mg/dl H 09/14/19 0555 Bedside Blood Glucose 124 mg/dl H 09/13/19 2100 Bedside Blood Glucose 157 mg/dl H 09/13/19 1645 Bedside Blood Glucose 131 mg/dl H 09/13/19 1130 Bedside Blood Glucose 150 mg/dl H 09/13/19 0632 Objective Last 24 Hour Vital Signs Date Time Temp Pulse Resp B/P (MAP) Pulse Ox O2 Delivery O2 Flow Rate FiO2 09/14/19 04:00 54 09/14/19 04:00 98.1 57 18 142/74 (96) 96 09/14/19 00:00 98.0 57 17 155/74 (101) 97 09/14/19 00:00 65 09/13/19 21:00 Room Air 09/13/19 21:00 55 145/73 09/13/19 20:00 97.9 55 20 145/73 (97) 97 09/13/19 20:00 58 09/13/19 16:00 58 09/13/19 16:00 97.5 62 20 123/60 (81) 92 09/13/19 13:18 141/66 09/13/19 12:55 96.6 55 20 141/66 (91) 96 09/13/19 12:00 80 09/13/19 12:00 96.6 55 20 141/66 (91) 96 09/13/19 09:52 65 114/96 09/13/19 09:00 Room Air 09/13/19 08:00 65 09/13/19 08:00 98.1 62 20 114/96 (102) 96 Intake and Output 09/13/19 09/14/19 19:00 07:00 Intake Total 720 ml 240 ml Output Total 600 ml 650 ml Balance 120 ml -410 ml Intake Oral 720 ml 240 ml Output Urine Total 600 ml 650 ml # Voids 1 Laboratory Tests 09/13/19 12:00: POC Whole Blood Glucose 126H 09/13/19 16:28: POC Whole Blood Glucose [Pending] 09/13/19 20:15: POC Whole Blood Glucose 124H 09/14/19 01:45: Urine Eosinophils None seen 09/14/19 05:26: POC Whole Blood Glucose 130H 09/14/19 06:30: White Blood Count [Pending], Red Blood Count [Pending], Hemoglobin [Pending], Hematocrit [Pending], Mean Corpuscular Volume [Pending], Mean Corpuscular Hemoglobin [Pending], Mean Corpuscular Hemoglobin Concent [Pending], Red Cell Distribution Width [Pending], Platelet Count [Pending], Mean Platelet Volume [ Pending], Neutrophils (%) (Auto) [Pending], Lymphocytes (%) (Auto) [Pending], Monocytes (%) (Auto) [Pending], Eosinophils (%) (Auto) [Pending], Basophils (%) (Auto) [Pending], Sodium Level [Pending], Potassium Level [Pending], Chloride Level [Pending], Carbon Dioxide Level [Pending], Blood Urea Nitrogen [Pending], Creatinine [Pending], Estimat Glomerular Filtration Rate [Pending], Glucose Level [Pending], Calcium Level [Pending], Phosphorus Level [Pending], Magnesium Level [Pending], Total Bilirubin [Pending], Aspartate Amino Transf (AST/SGOT) [ Pending], Alanine Aminotransferase (ALT/SGPT) [Pending], Alkaline Phosphatase [ Pending], C-Reactive Protein, Quantitative [Pending], Total Protein [Pending], Albumin [Pending], Globulin [Pending] Height (Feet): 6 Height (Inches): 0.00 Weight (Pounds): 210 General Appearance: no apparent distress Neck: normal alignment Cardiovascular: normal rate Respiratory/Chest: lungs clear Abdomen: normal bowel sounds Pelvis: normal external exam Objective Current Medications Medications (Trade) Dose Ordered Sig/Karyna Route PRN Reason Start Time Stop Time Status Last Admin Dose Admin Acetaminophen (Tylenol) 500 mg Q4H PRN ORAL Mild Pain (Pain Scale 1-3) 09/09/19 02:00 10/09/19 01:59 09/12/19 21:00 Aspirin (ASA) 81 mg DAILY ORAL 09/09/19 10:30 10/24/19 10:29 09/13/19 09:51 Atorvastatin Calcium (Lipitor) 20 mg BEDTIME ORAL 09/10/19 21:00 12/09/19 20:59 09/13/19 21:30 Bisacodyl (Dulcolax) 10 mg QHS ORAL 09/10/19 21:00 12/09/19 20:59 09/13/19 21:30 Cephalexin (Keflex) 500 mg Q12H ORAL 09/11/19 21:00 09/18/19 20:59 09/13/19 21:30 Dextrose (Dextrose 50%) 25 ml Q30M PRN IV Hypoglycemia 09/09/19 17:30 12/08/19 17:29 Dextrose (Dextrose 50%) 50 ml Q30M PRN IV Hypoglycemia 09/09/19 17:30 12/08/19 17:29 Docusate Sodium (Colace) 100 mg THREE TIMES A DAY ORAL 09/09/19 13:00 10/09/19 12:59 09/13/19 17:15 Enoxaparin Sodium (Lovenox) 40 mg DAILY SUBQ 09/13/19 09:00 12/12/19 08:59 09/13/19 09:53 Fish Oil (Fish Oil) 1,000 mg BID ORAL 09/10/19 18:00 10/10/19 17:59 09/13/19 17:16 Hydralazine HCl (Apresoline) 25 mg Q4H PRN ORAL BP over 160 systolic 09/09/19 10:00 12/08/19 09:59 Insulin Aspart (NovoLOG) BEFORE MEALS AND HS SUBQ 09/09/19 21:00 12/08/19 20:59 09/13/19 16:45 Magnesium Hydroxide (Mom) 30 ml Q4H PRN ORAL Constipation 09/10/19 17:15 10/10/19 17:14 09/10/19 21:48 Metoprolol Tartrate (Lopressor) 25 mg Q12HR ORAL 09/10/19 21:00 12/09/19 20:59 09/13/19 09:52 Nateglinide (Starlix) 60 mg TIAC ORAL 09/11/19 06:30 10/11/19 06:29 09/14/19 05:51 Nitroglycerin (Ntg) 1 patch Q24H TDERMAL 09/10/19 13:30 10/10/19 13:29 09/13/19 13:18 Pantoprazole (Protonix) 40 mg EVERY 12 HOURS ORAL 09/09/19 21:00 10/09/19 20:59 09/13/19 21:30 Sennosides (Senokot) 8.6 mg DAILY ORAL 09/11/19 09:00 10/11/19 08:59 09/13/19 09:52 Sitagliptin Phosphate (Januvia) 50 mg ACBREAKFAST ORAL 09/11/19 06:30 10/11/19 06:29 09/14/19 05:51 Werner Barth MD Sep 14, 2019 06:42
[2019-09-14 06:51] LABS: BASOPHILS % (AUTO) 0.9 % (0.0-2.0); EOSINOPHILS % (AUTO) 5.3 % (0.0-3.0); HEMOGLOBIN 13.1 G/DL (14.2-18.0); LYMPHOCYTES % (AUTO) 15.8 % (20.0-45.0); MEAN CORPUSCULAR VOLUME 99 FL (80-99); MONOCYTES % (AUTO) 6.2 % (1.0-10.0); NEUTROPHILS % (AUTO) 71.7 % (45.0-75.0); PLATELET COUNT 212 K/UL (150-450); RED BLOOD COUNT 3.96 M/UL (4.70-6.10); RED CELL DISTRIBUTION WIDTH 10.8 % (11.6-14.8); WHITE BLOOD COUNT 10.9 K/UL (4.8-10.8)
[2019-09-14 07:34] LABS: ALANINE AMINOTRANSFERASE 38 U/L (12-78); ALBUMIN 2.7 G/DL (3.4-5.0); ALBUMIN/GLOBULIN RATIO 0.8 (1.0-2.7); ALKALINE PHOSPHATASE 78 U/L (46-116); ANION GAP 9 mmol/L (5-15); ASPARTATE AMINO TRANSFERASE 35 U/L (15-37); BILIRUBIN,TOTAL 0.7 MG/DL (0.2-1.0); BLOOD UREA NITROGEN 17 mg/dL (7-18); CARBON DIOXIDE 24 MMOL/L (21-32); CHLORIDE 105 MMOL/L (98-107); CREATININE 1.6 MG/DL (0.55-1.30); PHOSPHORUS 3.1 MG/DL (2.5-4.9); POTASSIUM 3.7 MMOL/L (3.5-5.1); SODIUM 138 MMOL/L (136-145)
[2019-09-14 08:00] VITALS: BP 135/78
[2019-09-14] MEDS: Sennosides 8.6mg tab ORAL SCH (09:01)
[2019-09-14] MEDS: Docusate 100mg cap ORAL SCH ×3 (09:01→17:46)
[2019-09-14] MEDS: Aspirin Baby 81mg ORAL SCH (09:01)
[2019-09-14] MEDS: Enoxaparin 40mg Inj SUBQ SCH (09:02)
[2019-09-14] MEDS: Cephalexin 500mg cap ORAL SCH (09:04)
[2019-09-14] MEDS ORDERED: Milk of Magnesia 30ml Ud ORAL PRN (10:20)
--- NOTE | 2019-09-14 10:58 | Nephrology Progress Note ---
Assessment/Plan Problem List: (1) Renal failure (ARF), acute on chronic (2) Dehydration (3) Sepsis (4) UTI (urinary tract infection) Assessment This 74-year-old male presented to emergency room with fever, leukocytosis, evidence of UTI/sepsis He has leukocytosis and increased d-dimer, suspected 2019 novel coronavirus infection, however the first test is negative Renal impression: Acute on chronic kidney disease Superimposed dehydration Underlying diabetic nephropathy Diabetes mellitus [id number] Plan Stable from renal standpoint of view serum creatinine 1.6 today Other parameters and electrolytes stable Previously: Add Nitropaste for elevated troponin Add fish oil Slow IV hydration Monitor renal parameters Patient has a Carmen catheter Avoid nephrotoxic's On diabetic friendly diet now Keep the blood pressure and blood sugar in check Per orders Discussed with RN Subjective ROS Limited/Unobtainable: No Constitutional: Reports: malaise, weakness Objective Objective Last 24 Hour Vital Signs Date Time Temp Pulse Resp B/P (MAP) Pulse Ox O2 Delivery O2 Flow Rate FiO2 09/14/19 09:01 56 135/78 09/14/19 09:00 Room Air 09/14/19 08:00 59 09/14/19 08:00 97.7 56 18 135/78 (97) 96 09/14/19 04:00 54 09/14/19 04:00 98.1 57 18 142/74 (96) 96 09/14/19 00:00 98.0 57 17 155/74 (101) 97 09/14/19 00:00 65 09/13/19 21:00 Room Air 09/13/19 21:00 55 145/73 09/13/19 20:00 97.9 55 20 145/73 (97) 97 09/13/19 20:00 58 09/13/19 16:00 58 09/13/19 16:00 97.5 62 20 123/60 (81) 92 09/13/19 13:18 141/66 09/13/19 12:55 96.6 55 20 141/66 (91) 96 09/13/19 12:00 80 09/13/19 12:00 96.6 55 20 141/66 (91) 96 Intake and Output 09/13/19 09/14/19 19:00 07:00 Intake Total 720 ml 240 ml Output Total 600 ml 650 ml Balance 120 ml -410 ml Intake Oral 720 ml 240 ml Output Urine Total 600 ml 650 ml # Voids 1 Current Medications Medications (Trade) Dose Ordered Sig/Karyna Route PRN Reason Start Time Stop Time Status Last Admin Dose Admin Acetaminophen (Tylenol) 500 mg Q4H PRN ORAL Mild Pain (Pain Scale 1-3) 09/09/19 02:00 10/09/19 01:59 09/12/19 21:00 Aspirin (ASA) 81 mg DAILY ORAL 09/09/19 10:30 10/24/19 10:29 09/14/19 09:01 Atorvastatin Calcium (Lipitor) 20 mg BEDTIME ORAL 09/10/19 21:00 12/09/19 20:59 09/13/19 21:30 Bisacodyl (Dulcolax) 10 mg QHS ORAL 09/10/19 21:00 12/09/19 20:59 09/13/19 21:30 Cephalexin (Keflex) 500 mg Q12H ORAL 09/11/19 21:00 09/18/19 20:59 09/14/19 09:04 Dextrose (Dextrose 50%) 25 ml Q30M PRN IV Hypoglycemia 09/09/19 17:30 12/08/19 17:29 Dextrose (Dextrose 50%) 50 ml Q30M PRN IV Hypoglycemia 09/09/19 17:30 12/08/19 17:29 Docusate Sodium (Colace) 100 mg THREE TIMES A DAY ORAL 09/09/19 13:00 10/09/19 12:59 09/14/19 09:01 Enoxaparin Sodium (Lovenox) 40 mg DAILY SUBQ 09/13/19 09:00 12/12/19 08:59 09/14/19 09:02 Fish Oil (Fish Oil) 1,000 mg BID ORAL 09/10/19 18:00 10/10/19 17:59 09/14/19 09:01 Hydralazine HCl (Apresoline) 25 mg Q4H PRN ORAL BP over 160 systolic 09/09/19 10:00 12/08/19 09:59 Insulin Aspart (NovoLOG) BEFORE MEALS AND HS SUBQ 09/09/19 21:00 12/08/19 20:59 09/13/19 16:45 Magnesium Hydroxide (Mom) 30 ml Q4H PRN ORAL Constipation 09/10/19 17:15 10/10/19 17:14 09/10/19 21:48 Metoprolol Tartrate (Lopressor) 25 mg Q12HR ORAL 09/10/19 21:00 12/09/19 20:59 09/14/19 09:01 Nateglinide (Starlix) 60 mg TIAC ORAL 09/11/19 06:30 10/11/19 06:29 09/14/19 05:51 Nitroglycerin (Ntg) 1 patch Q24H TDERMAL 09/10/19 13:30 10/10/19 13:29 09/13/19 13:18 Pantoprazole (Protonix) 40 mg EVERY 12 HOURS ORAL 09/09/19 21:00 10/09/19 20:59 09/14/19 09:01 Sennosides (Senokot) 8.6 mg DAILY ORAL 09/11/19 09:00 10/11/19 08:59 09/14/19 09:01 Sitagliptin Phosphate (Januvia) 50 mg ACBREAKFAST ORAL 09/11/19 06:30 10/11/19 06:29 09/14/19 05:51 Laboratory Tests 09/13/19 12:00: POC Whole Blood Glucose 126H 09/13/19 16:28: POC Whole Blood Glucose [Pending] 09/13/19 20:15: POC Whole Blood Glucose 124H 09/14/19 01:45: Urine Eosinophils None seen 09/14/19 05:26: POC Whole Blood Glucose 130H 09/14/19 06:30: White Blood Count 10.9H, Red Blood Count 3.96L, Hemoglobin 13.1L, Hematocrit 39.0L, Mean Corpuscular Volume 99, Mean Corpuscular Hemoglobin 33.1H, Mean Corpuscular Hemoglobin Concent 33.6, Red Cell Distribution Width 10.8L, Platelet Count 212, Mean Platelet Volume 6.8, Neutrophils (%) (Auto) 71.7, Lymphocytes (%) (Auto) 15.8L, Monocytes (%) (Auto) 6.2, Eosinophils (%) (Auto) 5.3H, Basophils (%) (Auto) 0.9, Sodium Level 138, Potassium Level 3.7, Chloride Level 105, Carbon Dioxide Level 24, Anion Gap 9, Blood Urea Nitrogen 17, Creatinine 1.6H, Estimat Glomerular Filtration Rate 51.1, Glucose Level 143H, Calcium Level 9.0, Phosphorus Level 3.1, Magnesium Level 1.8, Total Bilirubin 0.7, Aspartate Amino Transf (AST/SGOT) 35, Alanine Aminotransferase (ALT/SGPT) 38, Alkaline Phosphatase 78, C-Reactive Protein, Quantitative 1.5H, Total Protein 6.0L, Albumin 2.7L, Globulin 3.3, Albumin/Globulin Ratio 0.8L Height (Feet): 6 Height (Inches): 0.00 Weight (Pounds): 210 General Appearance: no apparent distress Cardiovascular: bradycardia Respiratory/Chest: decreased breath sounds Abdomen: soft Wild Kraft MD Sep 14, 2019 10:58
--- NOTE | 2019-09-14 11:12 | General Progress Note ---
Assessment/Plan Problem List: (1) Sepsis ICD Codes: A41.9 - Sepsis, unspecified organism SNOMED: 69640425 Qualifiers: Qualified Codes: A41.9 - Sepsis, unspecified organism (2) Renal failure ICD Codes: N19 - Unspecified kidney failure SNOMED: 12383567 Qualifiers: Qualified Codes: N17.9 - Acute kidney failure, unspecified (3) Dehydration ICD Codes: E86.0 - Dehydration SNOMED: 21829650 (4) UTI (urinary tract infection) ICD Codes: N39.0 - Urinary tract infection, site not specified SNOMED: 41621347 Qualifiers: Qualified Codes: N39.0 - Urinary tract infection, site not specified (5) Fever ICD Codes: R50.9 - Fever, unspecified SNOMED: 254630781 Qualifiers: Qualified Codes: R50.9 - Fever, unspecified (6) Suspected 2019 novel coronavirus infection ICD Codes: Z20.828 - Contact with and (suspected) exposure to other viral communicable diseases SNOMED: 769984060 (7) Renal failure (ARF), acute on chronic ICD Codes: N17.9 - Acute kidney failure, unspecified; N18.9 - Chronic kidney disease, unspecified SNOMED: 698399571 Status: progressing Assessment/Plan: h/o covid positive pna arf improved hypokalemia resolved leukocytosis sepsis uti positive blood cx afebrile Subjective ROS Limited/Unobtainable: Yes Allergies: Coded Allergies: No Known Allergies (Unverified , 09/08/19) Objective Last 24 Hour Vital Signs Date Time Temp Pulse Resp B/P (MAP) Pulse Ox O2 Delivery O2 Flow Rate FiO2 09/14/19 09:01 56 135/78 09/14/19 09:00 Room Air 09/14/19 08:00 59 09/14/19 08:00 97.7 56 18 135/78 (97) 96 09/14/19 04:00 54 09/14/19 04:00 98.1 57 18 142/74 (96) 96 09/14/19 00:00 98.0 57 17 155/74 (101) 97 09/14/19 00:00 65 09/13/19 21:00 Room Air 09/13/19 21:00 55 145/73 09/13/19 20:00 97.9 55 20 145/73 (97) 97 7/19/20 20:00 58 09/13/19 16:00 58 09/13/19 16:00 97.5 62 20 123/60 (81) 92 09/13/19 13:18 141/66 09/13/19 12:55 96.6 55 20 141/66 (91) 96 09/13/19 12:00 80 09/13/19 12:00 96.6 55 20 141/66 (91) 96 Intake and Output 09/13/19 09/14/19 19:00 07:00 Intake Total 720 ml 240 ml Output Total 600 ml 650 ml Balance 120 ml -410 ml Intake Oral 720 ml 240 ml Output Urine Total 600 ml 650 ml # Voids 1 Laboratory Tests 09/13/19 12:00: POC Whole Blood Glucose 126H 09/13/19 16:28: POC Whole Blood Glucose [Pending] 09/13/19 20:15: POC Whole Blood Glucose 124H 09/14/19 01:45: Urine Eosinophils None seen 09/14/19 05:26: POC Whole Blood Glucose 130H 09/14/19 06:30: White Blood Count 10.9H, Red Blood Count 3.96L, Hemoglobin 13.1L, Hematocrit 39.0L, Mean Corpuscular Volume 99, Mean Corpuscular Hemoglobin 33.1H, Mean Corpuscular Hemoglobin Concent 33.6, Red Cell Distribution Width 10.8L, Platelet Count 212, Mean Platelet Volume 6.8, Neutrophils (%) (Auto) 71.7, Lymphocytes (%) (Auto) 15.8L, Monocytes (%) (Auto) 6.2, Eosinophils (%) (Auto) 5.3H, Basophils (%) (Auto) 0.9, Sodium Level 138, Potassium Level 3.7, Chloride Level 105, Carbon Dioxide Level 24, Anion Gap 9, Blood Urea Nitrogen 17, Creatinine 1.6H, Estimat Glomerular Filtration Rate 51.1, Glucose Level 143H, Calcium Level 9.0, Phosphorus Level 3.1, Magnesium Level 1.8, Total Bilirubin 0.7, Aspartate Amino Transf (AST/SGOT) 35, Alanine Aminotransferase (ALT/SGPT) 38, Alkaline Phosphatase 78, C-Reactive Protein, Quantitative 1.5H, Total Protein 6.0L, Albumin 2.7L, Globulin 3.3, Albumin/Globulin Ratio 0.8L Height (Feet): 6 Height (Inches): 0.00 Weight (Pounds): 210 Julia Warner MD Sep 14, 2019 11:12
--- NOTE | 2019-09-14 11:59 | Infectious Diseases Prog Note ---
Assessment/Plan Assessment/Plan IMPRESSION: Sepsis resolved UTI with E. coli, treated Positive blood culture likely contamination Negative COVID19 test, Acute renal failure, improving Diabetes with hyperglycemia, Hypertension, history of CVA and left hemiparesis. Cardiac ischemia RECOMMENDATION: Discontinue Keflex Subjective ROS Limited/Unobtainable: No Constitutional: Reports: no symptoms Respiratory: Reports: no symptoms Gastrointestinal/Abdominal: Reports: no symptoms Genitourinary: Reports: no symptoms Allergies: Coded Allergies: No Known Allergies (Unverified , 09/08/19) Objective Last 24 Hour Vital Signs Date Time Temp Pulse Resp B/P (MAP) Pulse Ox O2 Delivery O2 Flow Rate FiO2 09/14/19 09:01 56 135/78 09/14/19 09:00 Room Air 09/14/19 08:00 59 09/14/19 08:00 97.7 56 18 135/78 (97) 96 09/14/19 04:00 54 09/14/19 04:00 98.1 57 18 142/74 (96) 96 09/14/19 00:00 98.0 57 17 155/74 (101) 97 09/14/19 00:00 65 09/13/19 21:00 Room Air 09/13/19 21:00 55 145/73 09/13/19 20:00 97.9 55 20 145/73 (97) 97 09/13/19 20:00 58 09/13/19 16:00 58 09/13/19 16:00 97.5 62 20 123/60 (81) 92 09/13/19 13:18 141/66 09/13/19 12:55 96.6 55 20 141/66 (91) 96 09/13/19 12:00 80 09/13/19 12:00 96.6 55 20 141/66 (91) 96 Height (Feet): 6 Height (Inches): 0.00 Weight (Pounds): 210 General Appearance: no acute distress HEENT: mucous membranes moist Respiratory/Chest: lungs clear Cardiovascular: normal rate Abdomen: soft, non tender Genitourinary: other - Carmen catheter Extremities: no edema Laboratory Tests Test 09/13/19 12:00 09/13/19 16:28 09/13/19 20:15 09/14/19 01:45 POC Whole Blood Glucose 126 MG/DL (74-106) H Pending 124 MG/DL (74-106) H Urine Eosinophils None seen (NONE SEEN) Test 09/14/19 05:26 09/14/19 06:30 POC Whole Blood Glucose 130 MG/DL (74-106) H White Blood Count 10.9 K/UL (4.8-10.8) H Red Blood Count 3.96 M/UL (4.70-6.10) L Hemoglobin 13.1 G/DL (14.2-18.0) L Hematocrit 39.0 % (42.0-52.0) L Mean Corpuscular Volume 99 FL (80-99) Mean Corpuscular Hemoglobin 33.1 PG (27.0-31.0) H Mean Corpuscular Hemoglobin Concent 33.6 G/DL (32.0-36.0) Red Cell Distribution Width 10.8 % (11.6-14.8) L Platelet Count 212 K/UL (150-450) Mean Platelet Volume 6.8 FL (6.5-10.1) Neutrophils (%) (Auto) 71.7 % (45.0-75.0) Lymphocytes (%) (Auto) 15.8 % (20.0-45.0) L Monocytes (%) (Auto) 6.2 % (1.0-10.0) Eosinophils (%) (Auto) 5.3 % (0.0-3.0) H Basophils (%) (Auto) 0.9 % (0.0-2.0) Sodium Level 138 MMOL/L (136-145) Potassium Level 3.7 MMOL/L (3.5-5.1) Chloride Level 105 MMOL/L (98-107) Carbon Dioxide Level 24 MMOL/L (21-32) Anion Gap 9 mmol/L (5-15) Blood Urea Nitrogen 17 mg/dL (7-18) Creatinine 1.6 MG/DL (0.55-1.30) H Estimat Glomerular Filtration Rate 51.1 mL/min (>60) Glucose Level 143 MG/DL (74-106) H Calcium Level 9.0 MG/DL (8.5-10.1) Phosphorus Level 3.1 MG/DL (2.5-4.9) Magnesium Level 1.8 MG/DL (1.8-2.4) Total Bilirubin 0.7 MG/DL (0.2-1.0) Aspartate Amino Transf (AST/SGOT) 35 U/L (15-37) Alanine Aminotransferase (ALT/SGPT) 38 U/L (12-78) Alkaline Phosphatase 78 U/L (46-116) C-Reactive Protein, Quantitative 1.5 mg/dL (0.00-0.90) H Total Protein 6.0 G/DL (6.4-8.2) L Albumin 2.7 G/DL (3.4-5.0) L Globulin 3.3 g/dL Albumin/Globulin Ratio 0.8 (1.0-2.7) L Current Medications Medications (Trade) Dose Ordered Sig/Karyna Route PRN Reason Start Time Stop Time Status Last Admin Dose Admin Acetaminophen (Tylenol) 500 mg Q4H PRN ORAL Mild Pain (Pain Scale 1-3) 09/14/19 12:00 10/09/19 11:59 Aspirin (ASA) 81 mg DAILY ORAL 09/15/19 09:00 10/24/19 10:29 Atorvastatin Calcium (Lipitor) 20 mg BEDTIME ORAL 09/14/19 21:00 12/09/19 20:59 Bisacodyl (Dulcolax) 10 mg QHS ORAL 09/14/19 21:00 12/09/19 20:59 Cephalexin (Keflex) 500 mg Q12H ORAL 09/14/19 21:00 09/18/19 20:59 Dextrose (Dextrose 50%) 25 ml Q30M PRN IV Hypoglycemia 09/14/19 11:30 12/08/19 17:29 Dextrose (Dextrose 50%) 50 ml Q30M PRN IV Hypoglycemia 09/14/19 11:30 12/08/19 17:29 Docusate Sodium (Colace) 100 mg THREE TIMES A DAY ORAL 09/14/19 13:00 10/09/19 12:59 UNV Enoxaparin Sodium (Lovenox) 40 mg DAILY SUBQ 09/15/19 09:00 12/12/19 08:59 UNV Fish Oil (Fish Oil) 1,000 mg BID ORAL 09/14/19 18:00 10/10/19 17:59 UNV Hydralazine HCl (Apresoline) 25 mg Q4H PRN ORAL BP over 160 systolic 09/14/19 14:00 12/08/19 09:59 UNV Insulin Aspart (NovoLOG) BEFORE MEALS AND HS SUBQ 09/14/19 11:30 12/08/19 20:59 UNV Magnesium Hydroxide (Mom) 30 ml Q4H PRN ORAL Constipation 09/14/19 13:15 10/10/19 17:14 UNV Metoprolol Tartrate (Lopressor) 25 mg Q12HR ORAL 09/14/19 21:00 12/09/19 20:59 UNV Nateglinide (Starlix) 60 mg TIAC ORAL 09/14/19 11:30 10/11/19 06:29 UNV Nitroglycerin (Ntg) 1 patch Q24H TDERMAL 09/14/19 13:30 10/10/19 13:29 UNV Pantoprazole (Protonix) 40 mg EVERY 12 HOURS ORAL 09/14/19 21:00 10/09/19 20:59 UNV Sennosides (Senokot) 8.6 mg DAILY ORAL 09/15/19 09:00 10/11/19 08:59 UNV Sitagliptin Phosphate (Januvia) 50 mg ACBREAKFAST ORAL 09/15/19 06:30 10/11/19 06:29 UNV Nacho Angulo MD Sep 14, 2019 11:59
[2019-09-14 12:00] VITALS: BP 128/76
[2019-09-14] MEDS ORDERED: HydrALAZINE 25mg tab ORAL PRN (12:00)
--- NOTE | 2019-09-14 12:31 | Hematology/Onc Progress Note ---
Assessment/Plan Assessment/Plan Assessment and Recs # Elevated didmer in the setting of ALOC, sepsis, r./o covid19 --> r/o underlying infection, imaging reviewed --> has been started initially on heparin gtt, now on lovenox sq --> duplex lower extremity ordered, wilian Rn-->neg --> pulm eval prn with Dr. Duran # Leukocytosis r/o underlying infection --> may also be elevated due to been given steriods # Dehydration --> goal of euvolemia --> ivfs started # UTI, Urine positive for UTI -> abx as per id # BUN/creatinine elevated. Lactic 2.5. # Hypernatremia with a Na 147, --> ivfs started # Dvt ppx lovenox will change to ppx dose Appreciate consultation and wilian MOFFETT Subjective Cardiovascular: Denies: no symptoms, chest pain, edema, irregular heart rate, lightheadedness, palpitations, syncope, other Respiratory: Denies: no symptoms, cough, shortness of breath, SOB with excertion, SOB at rest, sputum, wheezing, other Gastrointestinal/Abdominal: Denies: no symptoms, abdomen distended, abdominal pain, black stools, tarry stools, blood in stool, constipated, diarrhea, difficulty swallowing, nausea, poor appetite, poor fluid intake, rectal bleeding , vomiting, other Genitourinary: Denies: no symptoms, burning, discharge, frequency, flank pain, hematuria, incontinence, pain, urgency, other Neurologic/Psychiatric: Denies: no symptoms, anxiety, depressed, emotional problems, headache, numbness, paresthesia, pre-existing deficit, seizure, tingling, tremors, weakness, other Endocrine: Denies: no symptoms, excessive sweating, flushing, intolerance to cold, intolerance to heat, increased hunger, increased thirst, increased urine, unexplained weight gain, unexplained weight loss, other Allergies: Coded Allergies: No Known Allergies (Unverified , 09/08/19) Subjective 09/09 meds reviewed, no bleeding, labs noted, altered, on ctx abx 09/10 no night sweats, meds reviewed, no bleeding, wilian rn, duplex ordered 09/12 awake, aler, no bleeding, meds reviewed, wilian rn 09/13 meds reviewed, no night sweats, wilian rn, no bleeding Objective Objective Current Medications Medications (Trade) Dose Ordered Sig/Karyna Route PRN Reason Start Time Stop Time Status Last Admin Dose Admin Acetaminophen (Tylenol) 500 mg Q4H PRN ORAL Mild Pain (Pain Scale 1-3) 09/14/19 12:00 10/09/19 11:59 Aspirin (ASA) 81 mg DAILY ORAL 09/15/19 09:00 10/24/19 10:29 Atorvastatin Calcium (Lipitor) 20 mg BEDTIME ORAL 09/14/19 21:00 12/09/19 20:59 Bisacodyl (Dulcolax) 10 mg QHS ORAL 09/14/19 21:00 12/09/19 20:59 Dextrose (Dextrose 50%) 25 ml Q30M PRN IV Hypoglycemia 09/14/19 11:30 12/08/19 17:29 Dextrose (Dextrose 50%) 50 ml Q30M PRN IV Hypoglycemia 09/14/19 11:30 12/08/19 17:29 Docusate Sodium (Colace) 100 mg THREE TIMES A DAY ORAL 09/14/19 13:00 10/09/19 12:59 09/14/19 12:19 Enoxaparin Sodium (Lovenox) 40 mg DAILY SUBQ 09/15/19 09:00 12/12/19 08:59 Fish Oil (Fish Oil) 1,000 mg BID ORAL 09/14/19 18:00 10/10/19 17:59 Hydralazine HCl (Apresoline) 25 mg Q4H PRN ORAL BP over 160 systolic 09/14/19 12:00 12/08/19 11:59 Insulin Aspart (NovoLOG) BEFORE MEALS AND HS SUBQ 09/14/19 11:30 12/08/19 20:59 09/14/19 12:20 Magnesium Hydroxide (Mom) 30 ml Q4H PRN ORAL Constipation 09/14/19 10:20 10/10/19 10:19 Metoprolol Tartrate (Lopressor) 25 mg Q12HR ORAL 09/14/19 21:00 12/09/19 20:59 Nateglinide (Starlix) 60 mg TIAC ORAL 09/14/19 11:30 10/11/19 06:29 09/14/19 12:19 Nitroglycerin (Ntg) 1 patch Q24H TDERMAL 09/14/19 13:30 10/10/19 13:29 Pantoprazole (Protonix) 40 mg EVERY 12 HOURS ORAL 09/14/19 21:00 10/09/19 20:59 Sennosides (Senokot) 8.6 mg DAILY ORAL 09/15/19 09:00 10/11/19 08:59 Sitagliptin Phosphate (Januvia) 50 mg ACBREAKFAST ORAL 09/15/19 06:30 10/11/19 06:29 Last 24 Hour Vital Signs Date Time Temp Pulse Resp B/P (MAP) Pulse Ox O2 Delivery O2 Flow Rate FiO2 09/14/19 09:01 56 135/78 09/14/19 09:00 Room Air 09/14/19 08:00 59 09/14/19 08:00 97.7 56 18 135/78 (97) 96 09/14/19 04:00 54 09/14/19 04:00 98.1 57 18 142/74 (96) 96 09/14/19 00:00 98.0 57 17 155/74 (101) 97 09/14/19 00:00 65 09/13/19 21:00 Room Air 09/13/19 21:00 55 145/73 09/13/19 20:00 97.9 55 20 145/73 (97) 97 09/13/19 20:00 58 09/13/19 16:00 58 09/13/19 16:00 97.5 62 20 123/60 (81) 92 09/13/19 13:18 141/66 09/13/19 12:55 96.6 55 20 141/66 (91) 96 09/13/19 12:00 80 09/13/19 12:00 96.6 55 20 141/66 (91) 96 09/13/19 09:52 65 114/96 09/13/19 09:00 Room Air 09/13/19 08:00 65 09/13/19 08:00 98.1 62 20 114/96 (102) 96 09/13/19 04:00 97.7 60 18 127/66 (86) 96 09/13/19 04:00 59 09/13/19 00:00 60 09/13/19 00:00 97.7 60 18 151/77 (101) 96 09/12/19 21:00 Room Air 09/12/19 21:00 60 143/73 09/12/19 20:00 60 09/12/19 20:00 97.7 60 18 143/73 (96) 97 09/12/19 16:00 58 09/12/19 16:00 98.4 67 21 110/74 (86) 98 09/12/19 12:39 110/74 Intake and Output 09/13/19 09/14/19 19:00 07:00 Intake Total 720 ml 240 ml Output Total 600 ml 650 ml Balance 120 ml -410 ml Intake Oral 720 ml 240 ml Output Urine Total 600 ml 650 ml # Voids 1 Labs Test 09/11/19 16:45 09/11/19 21:20 09/12/19 10:45 09/12/19 11:57 POC Whole Blood Glucose 152 MG/DL (74-106) 159 MG/DL (74-106) White Blood Count 7.7 K/UL (4.8-10.8) Red Blood Count 4.21 M/UL (4.70-6.10) Hemoglobin 14.0 G/DL (14.2-18.0) Hematocrit 41.4 % (42.0-52.0) Mean Corpuscular Volume 98 FL (80-99) Mean Corpuscular Hemoglobin 33.3 PG (27.0-31.0) Mean Corpuscular Hemoglobin Concent 33.9 G/DL (32.0-36.0) Red Cell Distribution Width 10.7 % (11.6-14.8) Platelet Count 191 K/UL (150-450) Mean Platelet Volume 6.7 FL (6.5-10.1) Neutrophils (%) (Auto) 67.8 % (45.0-75.0) Lymphocytes (%) (Auto) 19.7 % (20.0-45.0) Monocytes (%) (Auto) 7.0 % (1.0-10.0) Eosinophils (%) (Auto) 4.4 % (0.0-3.0) Basophils (%) (Auto) 1.1 % (0.0-2.0) Sodium Level 138 MMOL/L (136-145) Potassium Level 4.1 MMOL/L (3.5-5.1) Chloride Level 104 MMOL/L (98-107) Carbon Dioxide Level 28 MMOL/L (21-32) Anion Gap 6 mmol/L (5-15) Blood Urea Nitrogen 17 mg/dL (7-18) Creatinine 1.5 MG/DL (0.55-1.30) Estimat Glomerular Filtration Rate 55.1 mL/min (>60) Glucose Level 164 MG/DL (74-106) Calcium Level 8.5 MG/DL (8.5-10.1) Calcium (Send out) 8.4 mg/dL (8.6-10.2) Phosphorus Level 2.8 MG/DL (2.5-4.9) Magnesium Level 2.1 MG/DL (1.8-2.4) Total Bilirubin 0.7 MG/DL (0.2-1.0) Aspartate Amino Transf (AST/SGOT) 30 U/L (15-37) Alanine Aminotransferase (ALT/SGPT) 36 U/L (12-78) Alkaline Phosphatase 81 U/L (46-116) C-Reactive Protein, Quantitative 1.3 mg/dL (0.00-0.90) Pro-B-Type Natriuretic Peptide 721 pg/mL (0-125) Total Protein 5.8 G/DL (6.4-8.2) Albumin 2.8 G/DL (3.4-5.0) Globulin 3.0 g/dL Albumin/Globulin Ratio 0.9 (1.0-2.7) PTH (Intact) Whole Molecule Comment (.) Parathyroid Hormone (Intact) pg/mL (.) Test 09/12/19 16:14 09/12/19 20:54 09/13/19 06:06 09/13/19 12:00 POC Whole Blood Glucose 161 MG/DL (74-106) 130 MG/DL (74-106) 150 MG/DL (74-106) 126 MG/DL (74-106) Test 09/13/19 16:28 09/13/19 20:15 09/14/19 01:45 09/14/19 05:26 POC Whole Blood Glucose 124 MG/DL (74-106) 130 MG/DL (74-106) Urine Eosinophils None seen (NONE SEEN) Test 09/14/19 06:30 White Blood Count 10.9 K/UL (4.8-10.8) Red Blood Count 3.96 M/UL (4.70-6.10) Hemoglobin 13.1 G/DL (14.2-18.0) Hematocrit 39.0 % (42.0-52.0) Mean Corpuscular Volume 99 FL (80-99) Mean Corpuscular Hemoglobin 33.1 PG (27.0-31.0) Mean Corpuscular Hemoglobin Concent 33.6 G/DL (32.0-36.0) Red Cell Distribution Width 10.8 % (11.6-14.8) Platelet Count 212 K/UL (150-450) Mean Platelet Volume 6.8 FL (6.5-10.1) Neutrophils (%) (Auto) 71.7 % (45.0-75.0) Lymphocytes (%) (Auto) 15.8 % (20.0-45.0) Monocytes (%) (Auto) 6.2 % (1.0-10.0) Eosinophils (%) (Auto) 5.3 % (0.0-3.0) Basophils (%) (Auto) 0.9 % (0.0-2.0) Sodium Level 138 MMOL/L (136-145) Potassium Level 3.7 MMOL/L (3.5-5.1) Chloride Level 105 MMOL/L (98-107) Carbon Dioxide Level 24 MMOL/L (21-32) Anion Gap 9 mmol/L (5-15) Blood Urea Nitrogen 17 mg/dL (7-18) Creatinine 1.6 MG/DL (0.55-1.30) Estimat Glomerular Filtration Rate 51.1 mL/min (>60) Glucose Level 143 MG/DL (74-106) Calcium Level 9.0 MG/DL (8.5-10.1) Phosphorus Level 3.1 MG/DL (2.5-4.9) Magnesium Level 1.8 MG/DL (1.8-2.4) Total Bilirubin 0.7 MG/DL (0.2-1.0) Aspartate Amino Transf (AST/SGOT) 35 U/L (15-37) Alanine Aminotransferase (ALT/SGPT) 38 U/L (12-78) Alkaline Phosphatase 78 U/L (46-116) C-Reactive Protein, Quantitative 1.5 mg/dL (0.00-0.90) Total Protein 6.0 G/DL (6.4-8.2) Albumin 2.7 G/DL (3.4-5.0) Globulin 3.3 g/dL Albumin/Globulin Ratio 0.8 (1.0-2.7) Height (Feet): 6 Height (Inches): 0.00 Weight (Pounds): 210 Objective General: no apparent distress, GCS 15, non-toxic, lethargic HEENT: normal ENT inspection Neck: normal inspection Respiratory: chest non-tender, lungs clear, normal breath sounds, speaking full sentences Cardiovascular: tachycardia Gastrointestinal: normal bowel sounds, non tender Genitourinary: no CVA tenderness Musculoskeletal: normal inspection Neurologic: other - AMS Psychiatric: other - AMS Skin: other - see nrusing notes Lymphatic: normal inspection Lewis Bourne MD Sep 14, 2019 12:31
[2019-09-14] MEDS: Nitroglycerin Patch 0.4mg TDERMAL SCH (13:34)
--- NOTE | 2019-09-14 15:51 | Cardiac Electrophysiology PN ---
Assessment/Plan Assessment/Plan 1. Hypertension. On Lopressor 25 bid and p.r.n. hydralazine 2. NSTEMI with elevated troponin and Inferolateral ischemia. Denies any chest pain. EF 55%. Has first-degree AV block. On Aspirin and Lopressor. Troponin 0.8 Consider cardiac cath after bacteremia resolves 3. Shortness of breath, ruled out for COVID and started on Abx 4. Elevated D-dimer. Lower extremity duplex negative for DVT 5. Renal failure with Cr 1.9 6. Bacteremia and UTI on Cephalexin. May need MARILIN if persistent bacteremia DW RN Subjective Subjective Was in SR with first degree AVB. On Abx . Now off tele Objective Last 24 Hour Vital Signs Date Time Temp Pulse Resp B/P (MAP) Pulse Ox O2 Delivery O2 Flow Rate FiO2 09/14/19 13:34 128/76 09/14/19 12:00 97.7 61 17 128/76 (93) 95 09/14/19 09:01 56 135/78 09/14/19 09:00 Room Air 09/14/19 08:00 59 09/14/19 08:00 97.7 56 18 135/78 (97) 96 09/14/19 04:00 54 09/14/19 04:00 98.1 57 18 142/74 (96) 96 09/14/19 00:00 98.0 57 17 155/74 (101) 97 09/14/19 00:00 65 09/13/19 21:00 Room Air 09/13/19 21:00 55 145/73 09/13/19 20:00 97.9 55 20 145/73 (97) 97 09/13/19 20:00 58 09/13/19 16:00 58 09/13/19 16:00 97.5 62 20 123/60 (81) 92 Intake and Output 09/13/19 09/14/19 19:00 07:00 Intake Total 720 ml 240 ml Output Total 600 ml 650 ml Balance 120 ml -410 ml Intake Oral 720 ml 240 ml Output Urine Total 600 ml 650 ml # Voids 1 Laboratory Tests Test 09/13/19 16:28 09/13/19 20:15 09/14/19 01:45 09/14/19 05:26 POC Whole Blood Glucose Pending 124 MG/DL (74-106) H 130 MG/DL (74-106) H Urine Eosinophils None seen (NONE SEEN) Test 09/14/19 06:30 White Blood Count 10.9 K/UL (4.8-10.8) H Red Blood Count 3.96 M/UL (4.70-6.10) L Hemoglobin 13.1 G/DL (14.2-18.0) L Hematocrit 39.0 % (42.0-52.0) L Mean Corpuscular Volume 99 FL (80-99) Mean Corpuscular Hemoglobin 33.1 PG (27.0-31.0) H Mean Corpuscular Hemoglobin Concent 33.6 G/DL (32.0-36.0) Red Cell Distribution Width 10.8 % (11.6-14.8) L Platelet Count 212 K/UL (150-450) Mean Platelet Volume 6.8 FL (6.5-10.1) Neutrophils (%) (Auto) 71.7 % (45.0-75.0) Lymphocytes (%) (Auto) 15.8 % (20.0-45.0) L Monocytes (%) (Auto) 6.2 % (1.0-10.0) Eosinophils (%) (Auto) 5.3 % (0.0-3.0) H Basophils (%) (Auto) 0.9 % (0.0-2.0) Sodium Level 138 MMOL/L (136-145) Potassium Level 3.7 MMOL/L (3.5-5.1) Chloride Level 105 MMOL/L (98-107) Carbon Dioxide Level 24 MMOL/L (21-32) Anion Gap 9 mmol/L (5-15) Blood Urea Nitrogen 17 mg/dL (7-18) Creatinine 1.6 MG/DL (0.55-1.30) H Estimat Glomerular Filtration Rate 51.1 mL/min (>60) Glucose Level 143 MG/DL (74-106) H Calcium Level 9.0 MG/DL (8.5-10.1) Phosphorus Level 3.1 MG/DL (2.5-4.9) Magnesium Level 1.8 MG/DL (1.8-2.4) Total Bilirubin 0.7 MG/DL (0.2-1.0) Aspartate Amino Transf (AST/SGOT) 35 U/L (15-37) Alanine Aminotransferase (ALT/SGPT) 38 U/L (12-78) Alkaline Phosphatase 78 U/L (46-116) C-Reactive Protein, Quantitative 1.5 mg/dL (0.00-0.90) H Total Protein 6.0 G/DL (6.4-8.2) L Albumin 2.7 G/DL (3.4-5.0) L Globulin 3.3 g/dL Albumin/Globulin Ratio 0.8 (1.0-2.7) L Objective NECK: No JVD. LUNGS: Clear. CARDIOVASCULAR: Regular S1 and S2 with no gallop or murmur. ABDOMEN: Soft. EXTREMITIES: No pitting edema. Rick Torres MD Sep 14, 2019 15:51
[2019-09-14 16:00] VITALS: BP 136/65
--- NOTE | 2019-09-14 16:09 | Pulmonology Progress Note ---
Subjective ROS Limited/Unobtainable: No Interval Events: None new Constitutional: Reports: no symptoms HEENT: Repors: no symptoms Respiratory: Reports: no symptoms Cardiovascular: Reports: no symptoms Gastrointestinal/Abdominal: Reports: no symptoms Allergies: Coded Allergies: No Known Allergies (Unverified , 09/08/19) All Systems: reviewed and negative except above Objective Last 24 Hour Vital Signs Date Time Temp Pulse Resp B/P (MAP) Pulse Ox O2 Delivery O2 Flow Rate FiO2 09/14/19 13:34 128/76 09/14/19 12:00 97.7 61 17 128/76 (93) 95 09/14/19 09:01 56 135/78 09/14/19 09:00 Room Air 09/14/19 08:00 59 09/14/19 08:00 97.7 56 18 135/78 (97) 96 09/14/19 04:00 54 09/14/19 04:00 98.1 57 18 142/74 (96) 96 09/14/19 00:00 98.0 57 17 155/74 (101) 97 09/14/19 00:00 65 09/13/19 21:00 Room Air 09/13/19 21:00 55 145/73 09/13/19 20:00 97.9 55 20 145/73 (97) 97 09/13/19 20:00 58 Intake and Output 09/13/19 09/14/19 19:00 07:00 Intake Total 720 ml 240 ml Output Total 600 ml 650 ml Balance 120 ml -410 ml Intake Oral 720 ml 240 ml Output Urine Total 600 ml 650 ml # Voids 1 General Appearance: no acute distress HEENT: normocephalic Respiratory: chest wall non-tender, lungs clear Cardiovascular: normal peripheral pulses Abdomen: normal bowel sounds Laboratory Tests 09/13/19 16:28: POC Whole Blood Glucose [Pending] 09/13/19 20:15: POC Whole Blood Glucose 124H 09/14/19 01:45: Urine Eosinophils None seen 09/14/19 05:26: POC Whole Blood Glucose 130H 09/14/19 06:30: White Blood Count 10.9H, Red Blood Count 3.96L, Hemoglobin 13.1L, Hematocrit 39.0L, Mean Corpuscular Volume 99, Mean Corpuscular Hemoglobin 33.1H, Mean Corpuscular Hemoglobin Concent 33.6, Red Cell Distribution Width 10.8L, Platelet Count 212, Mean Platelet Volume 6.8, Neutrophils (%) (Auto) 71.7, Lymphocytes (%) (Auto) 15.8L, Monocytes (%) (Auto) 6.2, Eosinophils (%) (Auto) 5.3H, Basophils (%) (Auto) 0.9, Sodium Level 138, Potassium Level 3.7, Chloride Level 105, Carbon Dioxide Level 24, Anion Gap 9, Blood Urea Nitrogen 17, Creatinine 1.6H, Estimat Glomerular Filtration Rate 51.1, Glucose Level 143H, Calcium Level 9.0, Phosphorus Level 3.1, Magnesium Level 1.8, Total Bilirubin 0.7, Aspartate Amino Transf (AST/SGOT) 35, Alanine Aminotransferase (ALT/SGPT) 38, Alkaline Phosphatase 78, C-Reactive Protein, Quantitative 1.5H, Total Protein 6.0L, Albumin 2.7L, Globulin 3.3, Albumin/Globulin Ratio 0.8L Current Medications Medications (Trade) Dose Ordered Sig/Karyna Route PRN Reason Start Time Stop Time Status Last Admin Dose Admin Acetaminophen (Tylenol) 500 mg Q4H PRN ORAL Mild Pain (Pain Scale 1-3) 09/14/19 12:00 10/09/19 11:59 Aspirin (ASA) 81 mg DAILY ORAL 09/15/19 09:00 10/24/19 10:29 Atorvastatin Calcium (Lipitor) 20 mg BEDTIME ORAL 09/14/19 21:00 12/09/19 20:59 Bisacodyl (Dulcolax) 10 mg QHS ORAL 09/14/19 21:00 12/09/19 20:59 Dextrose (Dextrose 50%) 25 ml Q30M PRN IV Hypoglycemia 09/14/19 11:30 12/08/19 17:29 Dextrose (Dextrose 50%) 50 ml Q30M PRN IV Hypoglycemia 09/14/19 11:30 12/08/19 17:29 Docusate Sodium (Colace) 100 mg THREE TIMES A DAY ORAL 09/14/19 13:00 10/09/19 12:59 09/14/19 12:19 Enoxaparin Sodium (Lovenox) 40 mg DAILY SUBQ 09/15/19 09:00 12/12/19 08:59 Fish Oil (Fish Oil) 1,000 mg BID ORAL 09/14/19 18:00 10/10/19 17:59 Hydralazine HCl (Apresoline) 25 mg Q4H PRN ORAL BP over 160 systolic 09/14/19 12:00 12/08/19 11:59 Insulin Aspart (NovoLOG) BEFORE MEALS AND HS SUBQ 09/14/19 11:30 12/08/19 20:59 09/14/19 12:20 Magnesium Hydroxide (Mom) 30 ml Q4H PRN ORAL Constipation 09/14/19 10:20 10/10/19 10:19 Metoprolol Tartrate (Lopressor) 25 mg Q12HR ORAL 09/14/19 21:00 12/09/19 20:59 Nateglinide (Starlix) 60 mg TIAC ORAL 09/14/19 11:30 10/11/19 06:29 09/14/19 12:19 Nitroglycerin (Ntg) 1 patch Q24H TDERMAL 09/14/19 13:30 10/10/19 13:29 09/14/19 13:34 Pantoprazole (Protonix) 40 mg EVERY 12 HOURS ORAL 09/14/19 21:00 10/09/19 20:59 Sennosides (Senokot) 8.6 mg DAILY ORAL 09/15/19 09:00 10/11/19 08:59 Sitagliptin Phosphate (Januvia) 50 mg ACBREAKFAST ORAL 09/15/19 06:30 10/11/19 06:29 Assessment/Plan Assessment/Plan IMPRESSION: 1. Altered mental status. 2. UTI. 3. Diabetes mellitus. 4. Hypertension. 5. Renal failure. 6. Elevated D-dimer. DISCUSSION: His inflammatory markers are abnormal. He is negative for COVID 19 pcr On full dose Lovenox Continue broad-spectrum antibiotics. I will follow carefully. Saturations normal on RA DC planning Armand Soto Omar Syed MD Sep 14, 2019 16:09
[2019-09-14] MEDS: Acetaminophen 500mg (ES) tab ORAL PRN (18:53)
[2019-09-14 20:00] VITALS: BP 134/74
[2019-09-14] MEDS: Atorvastatin 20mg tab ORAL SCH (20:35)
[2019-09-14] MEDS: Bisacodyl EC 5mg tab ORAL SCH (20:35)
[2019-09-14] MEDS ORDERED: Cephalexin 500mg cap ORAL SCH (21:00)
[2019-09-15] VITALS: BP 143/76
[2019-09-15 04:00] VITALS: BP 150/88
[2019-09-15] MEDS: Nateglinide 60mg tab ORAL SCH ×3 (05:47→17:11)
[2019-09-15] MEDS: sitaGLIPtin 50mg tab ORAL SCH (05:47)
[2019-09-15] MEDS: NovoLOG Insulin Flexpen SUBQ SCH ×4 (06:04→21:00)
--- NOTE | 2019-09-15 06:51 | General Progress Note ---
Assessment/Plan Problem List: (1) Diabetes mellitus out of control ICD Codes: E11.65 - Type 2 diabetes mellitus with hyperglycemia SNOMED: 35673468, 303340175 (2) Suspected 2019 novel coronavirus infection ICD Codes: Z20.828 - Contact with and (suspected) exposure to other viral communicable diseases SNOMED: 978595552 (3) Sepsis ICD Codes: A41.9 - Sepsis, unspecified organism SNOMED: 04686538 Qualifiers: Qualified Codes: A41.9 - Sepsis, unspecified organism (4) Dehydration ICD Codes: E86.0 - Dehydration SNOMED: 43525152 (5) Renal failure ICD Codes: N19 - Unspecified kidney failure SNOMED: 73424909 Qualifiers: Qualified Codes: N17.9 - Acute kidney failure, unspecified (6) UTI (urinary tract infection) ICD Codes: N39.0 - Urinary tract infection, site not specified SNOMED: 58137435 Qualifiers: Qualified Codes: N39.0 - Urinary tract infection, site not specified (7) Altered level of consciousness ICD Codes: R40.4 - Transient alteration of awareness SNOMED: 4821294 (8) Renal failure (ARF), acute on chronic ICD Codes: N17.9 - Acute kidney failure, unspecified; N18.9 - Chronic kidney disease, unspecified SNOMED: 022075832 (9) Fever ICD Codes: R50.9 - Fever, unspecified SNOMED: 022732899 Qualifiers: Qualified Codes: R50.9 - Fever, unspecified Status: progressing Assessment/Plan: continue Januvia 50 mg daily continue Starlix 60 mg ac tid continue Novolog sliding scale ac / hs hypoglycemic protocol in order no need for insulin after discharge Subjective Allergies: Coded Allergies: No Known Allergies (Unverified , 09/08/19) Subjective events noted glucose values are stable without hypoglycemia Item Value Date Time Bedside Blood Glucose 133 mg/dl H 09/15/19 0604 Bedside Blood Glucose 133 mg/dl H 09/14/19 2100 Bedside Blood Glucose 103 mg/dl 09/14/19 1639 Bedside Blood Glucose 158 mg/dl H 09/14/19 1220 Bedside Blood Glucose 130 mg/dl H 09/14/19 0630 Objective Last 24 Hour Vital Signs Date Time Temp Pulse Resp B/P (MAP) Pulse Ox O2 Delivery O2 Flow Rate FiO2 09/15/19 04:00 97.0 56 18 150/88 (108) 97 09/15/19 00:00 98.1 58 18 143/76 (98) 97 09/14/19 21:00 Room Air 09/14/19 20:34 61 134/74 09/14/19 20:00 98.1 61 18 134/74 (94) 96 09/14/19 16:00 97.9 58 18 136/65 (88) 96 09/14/19 13:34 128/76 09/14/19 12:00 97.7 61 17 128/76 (93) 95 09/14/19 09:01 56 135/78 09/14/19 09:00 Room Air 09/14/19 08:00 59 09/14/19 08:00 97.7 56 18 135/78 (97) 96 Intake and Output 09/14/19 09/15/19 19:00 07:00 Intake Total 5000 ml 260 ml Output Total 300 ml 1000 ml Balance 4700 ml -740 ml Intake Oral 5000 ml Other 260 ml Output Urine Total 300 ml 1000 ml Height (Feet): 6 Height (Inches): 0.00 Weight (Pounds): 210 General Appearance: no apparent distress Neck: normal alignment Cardiovascular: normal rate Respiratory/Chest: lungs clear Abdomen: normal bowel sounds Pelvis: normal external exam Objective Current Medications Medications (Trade) Dose Ordered Sig/Karyna Route PRN Reason Start Time Stop Time Status Last Admin Dose Admin Acetaminophen (Tylenol) 500 mg Q4H PRN ORAL Mild Pain (Pain Scale 1-3) 09/14/19 12:00 10/09/19 11:59 09/14/19 18:53 Aspirin (ASA) 81 mg DAILY ORAL 09/15/19 09:00 10/24/19 10:29 Atorvastatin Calcium (Lipitor) 20 mg BEDTIME ORAL 09/14/19 21:00 12/09/19 20:59 09/14/19 20:35 Bisacodyl (Dulcolax) 10 mg QHS ORAL 09/14/19 21:00 12/09/19 20:59 09/14/19 20:35 Dextrose (Dextrose 50%) 25 ml Q30M PRN IV Hypoglycemia 09/14/19 11:30 12/08/19 17:29 Dextrose (Dextrose 50%) 50 ml Q30M PRN IV Hypoglycemia 09/14/19 11:30 12/08/19 17:29 Docusate Sodium (Colace) 100 mg THREE TIMES A DAY ORAL 09/14/19 13:00 10/09/19 12:59 09/14/19 17:46 Enoxaparin Sodium (Lovenox) 40 mg DAILY SUBQ 09/15/19 09:00 12/12/19 08:59 Fish Oil (Fish Oil) 1,000 mg BID ORAL 09/14/19 18:00 10/10/19 17:59 09/14/19 17:46 Hydralazine HCl (Apresoline) 25 mg Q4H PRN ORAL BP over 160 systolic 09/14/19 12:00 12/08/19 11:59 Insulin Aspart (NovoLOG) BEFORE MEALS AND HS SUBQ 09/14/19 11:30 12/08/19 20:59 09/14/19 12:20 Magnesium Hydroxide (Mom) 30 ml Q4H PRN ORAL Constipation 09/14/19 10:20 10/10/19 10:19 Metoprolol Tartrate (Lopressor) 25 mg Q12HR ORAL 09/14/19 21:00 12/09/19 20:59 09/14/19 20:34 Nateglinide (Starlix) 60 mg TIAC ORAL 09/14/19 11:30 10/11/19 06:29 09/15/19 05:47 Nitroglycerin (Ntg) 1 patch Q24H TDERMAL 09/14/19 13:30 10/10/19 13:29 09/14/19 13:34 Pantoprazole (Protonix) 40 mg EVERY 12 HOURS ORAL 09/14/19 21:00 10/09/19 20:59 09/14/19 20:35 Sennosides (Senokot) 8.6 mg DAILY ORAL 09/15/19 09:00 10/11/19 08:59 Sitagliptin Phosphate (Januvia) 50 mg ACBREAKFAST ORAL 09/15/19 06:30 10/11/19 06:29 09/15/19 05:47 Werner Barth MD Sep 15, 2019 06:51
[2019-09-15 08:00] VITALS: BP 119/72
[2019-09-15] MEDS: Acetaminophen 500mg (ES) tab ORAL PRN (08:56)
[2019-09-15] MEDS: Aspirin Baby 81mg ORAL SCH (08:56)
[2019-09-15] MEDS: Docusate 100mg cap ORAL SCH ×3 (08:56→17:11)
[2019-09-15] MEDS: Sennosides 8.6mg tab ORAL SCH (08:56)
[2019-09-15] MEDS: Enoxaparin 40mg Inj SUBQ SCH (08:57)
--- NOTE | 2019-09-15 10:09 | Pulmonology Progress Note ---
Subjective ROS Limited/Unobtainable: No Interval Events: None new Constitutional: Reports: no symptoms HEENT: Repors: no symptoms Respiratory: Reports: no symptoms Cardiovascular: Reports: no symptoms Gastrointestinal/Abdominal: Reports: no symptoms Allergies: Coded Allergies: No Known Allergies (Unverified , 09/08/19) All Systems: reviewed and negative except above Objective Last 24 Hour Vital Signs Date Time Temp Pulse Resp B/P (MAP) Pulse Ox O2 Delivery O2 Flow Rate FiO2 09/15/19 08:57 58 119/72 09/15/19 04:00 97.0 56 18 150/88 (108) 97 09/15/19 00:00 98.1 58 18 143/76 (98) 97 09/14/19 21:00 Room Air 09/14/19 20:34 61 134/74 09/14/19 20:00 98.1 61 18 134/74 (94) 96 09/14/19 16:00 97.9 58 18 136/65 (88) 96 09/14/19 13:34 128/76 09/14/19 12:00 97.7 61 17 128/76 (93) 95 Intake and Output 09/14/19 09/15/19 19:00 07:00 Intake Total 5000 ml 260 ml Output Total 300 ml 1000 ml Balance 4700 ml -740 ml Intake Oral 5000 ml Other 260 ml Output Urine Total 300 ml 1000 ml General Appearance: no acute distress HEENT: normocephalic Respiratory: chest wall non-tender, lungs clear Cardiovascular: normal peripheral pulses Abdomen: normal bowel sounds Current Medications Medications (Trade) Dose Ordered Sig/Karyna Route PRN Reason Start Time Stop Time Status Last Admin Dose Admin Acetaminophen (Tylenol) 500 mg Q4H PRN ORAL Mild Pain (Pain Scale 1-3) 09/14/19 12:00 10/09/19 11:59 09/15/19 08:56 Aspirin (ASA) 81 mg DAILY ORAL 09/15/19 09:00 10/24/19 10:29 09/15/19 08:56 Atorvastatin Calcium (Lipitor) 20 mg BEDTIME ORAL 09/14/19 21:00 12/09/19 20:59 09/14/19 20:35 Bisacodyl (Dulcolax) 10 mg QHS ORAL 09/14/19 21:00 12/09/19 20:59 09/14/19 20:35 Dextrose (Dextrose 50%) 25 ml Q30M PRN IV Hypoglycemia 09/14/19 11:30 12/08/19 17:29 Dextrose (Dextrose 50%) 50 ml Q30M PRN IV Hypoglycemia 09/14/19 11:30 12/08/19 17:29 Docusate Sodium (Colace) 100 mg THREE TIMES A DAY ORAL 09/14/19 13:00 10/09/19 12:59 09/15/19 08:56 Enoxaparin Sodium (Lovenox) 40 mg DAILY SUBQ 09/15/19 09:00 12/12/19 08:59 09/15/19 08:57 Fish Oil (Fish Oil) 1,000 mg BID ORAL 09/14/19 18:00 10/10/19 17:59 09/15/19 08:56 Hydralazine HCl (Apresoline) 25 mg Q4H PRN ORAL BP over 160 systolic 09/14/19 12:00 12/08/19 11:59 Insulin Aspart (NovoLOG) BEFORE MEALS AND HS SUBQ 09/14/19 11:30 12/08/19 20:59 09/14/19 12:20 Magnesium Hydroxide (Mom) 30 ml Q4H PRN ORAL Constipation 09/14/19 10:20 10/10/19 10:19 Metoprolol Tartrate (Lopressor) 25 mg Q12HR ORAL 09/14/19 21:00 12/09/19 20:59 09/14/19 20:34 Nateglinide (Starlix) 60 mg TIAC ORAL 09/14/19 11:30 10/11/19 06:29 09/15/19 05:47 Nitroglycerin (Ntg) 1 patch Q24H TDERMAL 09/14/19 13:30 10/10/19 13:29 09/14/19 13:34 Pantoprazole (Protonix) 40 mg EVERY 12 HOURS ORAL 09/14/19 21:00 10/09/19 20:59 09/15/19 08:56 Sennosides (Senokot) 8.6 mg DAILY ORAL 09/15/19 09:00 10/11/19 08:59 09/15/19 08:56 Sitagliptin Phosphate (Januvia) 50 mg ACBREAKFAST ORAL 09/15/19 06:30 10/11/19 06:29 09/15/19 05:47 Assessment/Plan Assessment/Plan IMPRESSION: 1. Altered mental status. 2. UTI. 3. Diabetes mellitus. 4. Hypertension. 5. Renal failure. 6. Elevated D-dimer. DISCUSSION: His inflammatory markers are abnormal. He is negative for COVID 19 pcr Continue broad-spectrum antibiotics. I will follow carefully. Saturations normal on RA DC planning Ketan Duran M.D. Ketan Duran MD Sep 15, 2019 10:09
--- NOTE | 2019-09-15 11:20 | Infectious Diseases Prog Note ---
Assessment/Plan Assessment/Plan antibiotics : none A 1. e.coli UTI 2. COVID 19 test negative 3. + blood cultures with coag neg staph likely contaminated 4. diabetes mellitus 5. hypertension 6. renal failure 7. CVA P 1. continue off antibiotics 2. will follow up clinically Subjective Constitutional: Denies: fever, chills Respiratory: Denies: shortness of breath, dry cough Gastrointestinal/Abdominal: Denies: nausea, vomiting, diarrhea Musculoskeletal: Denies: pain Allergies: Coded Allergies: No Known Allergies (Unverified , 09/08/19) Objective Last 24 Hour Vital Signs Date Time Temp Pulse Resp B/P (MAP) Pulse Ox O2 Delivery O2 Flow Rate FiO2 09/15/19 09:00 Room Air 09/15/19 08:57 58 119/72 09/15/19 08:00 97.7 58 18 119/72 (88) 95 09/15/19 04:00 97.0 56 18 150/88 (108) 97 09/15/19 00:00 98.1 58 18 143/76 (98) 97 09/14/19 21:00 Room Air 09/14/19 20:34 61 134/74 09/14/19 20:00 98.1 61 18 134/74 (94) 96 09/14/19 16:00 97.9 58 18 136/65 (88) 96 09/14/19 13:34 128/76 09/14/19 12:00 97.7 61 17 128/76 (93) 95 Height (Feet): 6 Height (Inches): 0.00 Weight (Pounds): 210 Respiratory/Chest: lungs clear Cardiovascular: normal rate, regular rhythm, no gallop/murmur Abdomen: soft, non tender Extremities: no edema Current Medications Medications (Trade) Dose Ordered Sig/Karyna Route PRN Reason Start Time Stop Time Status Last Admin Dose Admin Acetaminophen (Tylenol) 500 mg Q4H PRN ORAL Mild Pain (Pain Scale 1-3) 09/14/19 12:00 10/09/19 11:59 09/15/19 08:56 Aspirin (ASA) 81 mg DAILY ORAL 09/15/19 09:00 10/24/19 10:29 09/15/19 08:56 Atorvastatin Calcium (Lipitor) 20 mg BEDTIME ORAL 09/14/19 21:00 12/09/19 20:59 09/14/19 20:35 Bisacodyl (Dulcolax) 10 mg QHS ORAL 09/14/19 21:00 12/09/19 20:59 09/14/19 20:35 Dextrose (Dextrose 50%) 25 ml Q30M PRN IV Hypoglycemia 09/14/19 11:30 12/08/19 17:29 Dextrose (Dextrose 50%) 50 ml Q30M PRN IV Hypoglycemia 09/14/19 11:30 12/08/19 17:29 Docusate Sodium (Colace) 100 mg THREE TIMES A DAY ORAL 09/14/19 13:00 10/09/19 12:59 09/15/19 08:56 Enoxaparin Sodium (Lovenox) 40 mg DAILY SUBQ 09/15/19 09:00 12/12/19 08:59 09/15/19 08:57 Fish Oil (Fish Oil) 1,000 mg BID ORAL 09/14/19 18:00 10/10/19 17:59 09/15/19 08:56 Hydralazine HCl (Apresoline) 25 mg Q4H PRN ORAL BP over 160 systolic 09/14/19 12:00 12/08/19 11:59 Insulin Aspart (NovoLOG) BEFORE MEALS AND HS SUBQ 09/14/19 11:30 12/08/19 20:59 09/14/19 12:20 Magnesium Hydroxide (Mom) 30 ml Q4H PRN ORAL Constipation 09/14/19 10:20 10/10/19 10:19 Metoprolol Tartrate (Lopressor) 25 mg Q12HR ORAL 09/14/19 21:00 12/09/19 20:59 09/14/19 20:34 Nateglinide (Starlix) 60 mg TIAC ORAL 09/14/19 11:30 10/11/19 06:29 09/15/19 05:47 Nitroglycerin (Ntg) 1 patch Q24H TDERMAL 09/14/19 13:30 10/10/19 13:29 09/14/19 13:34 Pantoprazole (Protonix) 40 mg EVERY 12 HOURS ORAL 09/14/19 21:00 10/09/19 20:59 09/15/19 08:56 Sennosides (Senokot) 8.6 mg DAILY ORAL 09/15/19 09:00 8/16/20 08:59 09/15/19 08:56 Sitagliptin Phosphate (Januvia) 50 mg ACBREAKFAST ORAL 09/15/19 06:30 10/11/19 06:29 09/15/19 05:47 Ender Hobson MD Sep 15, 2019 11:20
--- NOTE | 2019-09-15 11:36 | Hematology/Onc Progress Note ---
Assessment/Plan Assessment/Plan Assessment and Recs # Elevated didmer in the setting of ALOC, sepsis, r./o covid19 --> r/o underlying infection, imaging reviewed --> has been started initially on heparin gtt, now on lovenox sq --> duplex lower extremity ordered, wilian Rn-->neg --> pulm eval prn with Dr. Duran # Leukocytosis r/o underlying infection --> may also be elevated due to been given steriods # Dehydration --> goal of euvolemia --> ivfs started # UTI, Urine positive for UTI -> abx as per id # BUN/creatinine elevated. Lactic 2.5. --> per renal # Hypernatremia with a Na 147 --> ivfs started # Dvt ppx lovenox sq Appreciate consultation and wilian MOFFETT Subjective Constitutional: Denies: no symptoms, chills, fever, malaise, weakness, other HEENT: Denies: no symptoms, eye pain, blurred vision, tearing, double vision, ear pain, ear discharge, nose pain, nose congestion, throat pain, throat swelling, mouth pain, mouth swelling, other Cardiovascular: Denies: no symptoms, chest pain, edema, irregular heart rate, lightheadedness, palpitations, syncope, other Respiratory: Denies: no symptoms, cough, shortness of breath, SOB with excertion, SOB at rest, sputum, wheezing, other Gastrointestinal/Abdominal: Denies: no symptoms, abdomen distended, abdominal pain, black stools, tarry stools, blood in stool, constipated, diarrhea, difficulty swallowing, nausea, poor appetite, poor fluid intake, rectal bleeding , vomiting, other Genitourinary: Denies: no symptoms, burning, discharge, frequency, flank pain, hematuria, incontinence, pain, urgency, other Endocrine: Denies: no symptoms, excessive sweating, flushing, intolerance to cold, intolerance to heat, increased hunger, increased thirst, increased urine, unexplained weight gain, unexplained weight loss, other Hematologic/Lymphatic: Denies: no symptoms, anemia, easy bleeding, easy bruising, adenopathy, other Allergies: Coded Allergies: No Known Allergies (Unverified , 09/08/19) Subjective 09/09 meds reviewed, no bleeding, labs noted, altered, on ctx abx 09/10 no night sweats, meds reviewed, no bleeding, wilian rn, duplex ordered 09/12 awake, aler, no bleeding, meds reviewed, wilian rn 09/13 meds reviewed, no night sweats, wilian rn, no bleeding 09/14 labs reviewed, meds noted, no bleeding, no f/c Objective Objective Current Medications Medications (Trade) Dose Ordered Sig/Karyna Route PRN Reason Start Time Stop Time Status Last Admin Dose Admin Acetaminophen (Tylenol) 500 mg Q4H PRN ORAL Mild Pain (Pain Scale 1-3) 09/14/19 12:00 10/09/19 11:59 09/15/19 08:56 Aspirin (ASA) 81 mg DAILY ORAL 09/15/19 09:00 10/24/19 10:29 09/15/19 08:56 Atorvastatin Calcium (Lipitor) 20 mg BEDTIME ORAL 09/14/19 21:00 12/09/19 20:59 09/14/19 20:35 Bisacodyl (Dulcolax) 10 mg QHS ORAL 09/14/19 21:00 12/09/19 20:59 09/14/19 20:35 Dextrose (Dextrose 50%) 25 ml Q30M PRN IV Hypoglycemia 09/14/19 11:30 12/08/19 17:29 Dextrose (Dextrose 50%) 50 ml Q30M PRN IV Hypoglycemia 09/14/19 11:30 12/08/19 17:29 Docusate Sodium (Colace) 100 mg THREE TIMES A DAY ORAL 09/14/19 13:00 10/09/19 12:59 09/15/19 08:56 Enoxaparin Sodium (Lovenox) 40 mg DAILY SUBQ 09/15/19 09:00 12/12/19 08:59 09/15/19 08:57 Fish Oil (Fish Oil) 1,000 mg BID ORAL 09/14/19 18:00 10/10/19 17:59 09/15/19 08:56 Hydralazine HCl (Apresoline) 25 mg Q4H PRN ORAL BP over 160 systolic 09/14/19 12:00 12/08/19 11:59 Insulin Aspart (NovoLOG) BEFORE MEALS AND HS SUBQ 09/14/19 11:30 12/08/19 20:59 09/14/19 12:20 Magnesium Hydroxide (Mom) 30 ml Q4H PRN ORAL Constipation 09/14/19 10:20 10/10/19 10:19 Metoprolol Tartrate (Lopressor) 25 mg Q12HR ORAL 09/14/19 21:00 12/09/19 20:59 09/14/19 20:34 Nateglinide (Starlix) 60 mg TIAC ORAL 09/14/19 11:30 10/11/19 06:29 09/15/19 05:47 Nitroglycerin (Ntg) 1 patch Q24H TDERMAL 09/14/19 13:30 10/10/19 13:29 09/14/19 13:34 Pantoprazole (Protonix) 40 mg EVERY 12 HOURS ORAL 09/14/19 21:00 10/09/19 20:59 09/15/19 08:56 Sennosides (Senokot) 8.6 mg DAILY ORAL 09/15/19 09:00 10/11/19 08:59 09/15/19 08:56 Sitagliptin Phosphate (Januvia) 50 mg ACBREAKFAST ORAL 09/15/19 06:30 10/11/19 06:29 09/15/19 05:47 Last 24 Hour Vital Signs Date Time Temp Pulse Resp B/P (MAP) Pulse Ox O2 Delivery O2 Flow Rate FiO2 09/15/19 09:00 Room Air 09/15/19 08:57 58 119/72 09/15/19 08:00 97.7 58 18 119/72 (88) 95 09/15/19 04:00 97.0 56 18 150/88 (108) 97 09/15/19 00:00 98.1 58 18 143/76 (98) 97 09/14/19 21:00 Room Air 09/14/19 20:34 61 134/74 09/14/19 20:00 98.1 61 18 134/74 (94) 96 09/14/19 16:00 97.9 58 18 136/65 (88) 96 09/14/19 13:34 128/76 09/14/19 12:00 97.7 61 17 128/76 (93) 95 09/14/19 09:01 56 135/78 09/14/19 09:00 Room Air 09/14/19 08:00 59 09/14/19 08:00 97.7 56 18 135/78 (97) 96 09/14/19 04:00 54 09/14/19 04:00 98.1 57 18 142/74 (96) 96 09/14/19 00:00 98.0 57 17 155/74 (101) 97 09/14/19 00:00 65 09/13/19 21:00 Room Air 09/13/19 21:00 55 145/73 09/13/19 20:00 97.9 55 20 145/73 (97) 97 09/13/19 20:00 58 09/13/19 16:00 58 09/13/19 16:00 97.5 62 20 123/60 (81) 92 09/13/19 13:18 141/66 09/13/19 12:55 96.6 55 20 141/66 (91) 96 09/13/19 12:00 80 09/13/19 12:00 96.6 55 20 141/66 (91) 96 Intake and Output 09/14/19 09/15/19 19:00 07:00 Intake Total 5000 ml 260 ml Output Total 300 ml 1000 ml Balance 4700 ml -740 ml Intake Oral 5000 ml Other 260 ml Output Urine Total 300 ml 1000 ml Labs Test 09/12/19 11:57 09/12/19 16:14 09/12/19 20:54 09/13/19 06:06 POC Whole Blood Glucose 159 MG/DL (74-106) 161 MG/DL (74-106) 130 MG/DL (74-106) 150 MG/DL (74-106) Test 09/13/19 12:00 09/13/19 16:28 09/13/19 20:15 09/14/19 01:45 POC Whole Blood Glucose 126 MG/DL (74-106) 124 MG/DL (74-106) Urine Eosinophils None seen (NONE SEEN) Test 09/14/19 05:26 09/14/19 06:30 POC Whole Blood Glucose 130 MG/DL (74-106) White Blood Count 10.9 K/UL (4.8-10.8) Red Blood Count 3.96 M/UL (4.70-6.10) Hemoglobin 13.1 G/DL (14.2-18.0) Hematocrit 39.0 % (42.0-52.0) Mean Corpuscular Volume 99 FL (80-99) Mean Corpuscular Hemoglobin 33.1 PG (27.0-31.0) Mean Corpuscular Hemoglobin Concent 33.6 G/DL (32.0-36.0) Red Cell Distribution Width 10.8 % (11.6-14.8) Platelet Count 212 K/UL (150-450) Mean Platelet Volume 6.8 FL (6.5-10.1) Neutrophils (%) (Auto) 71.7 % (45.0-75.0) Lymphocytes (%) (Auto) 15.8 % (20.0-45.0) Monocytes (%) (Auto) 6.2 % (1.0-10.0) Eosinophils (%) (Auto) 5.3 % (0.0-3.0) Basophils (%) (Auto) 0.9 % (0.0-2.0) Sodium Level 138 MMOL/L (136-145) Potassium Level 3.7 MMOL/L (3.5-5.1) Chloride Level 105 MMOL/L (98-107) Carbon Dioxide Level 24 MMOL/L (21-32) Anion Gap 9 mmol/L (5-15) Blood Urea Nitrogen 17 mg/dL (7-18) Creatinine 1.6 MG/DL (0.55-1.30) Estimat Glomerular Filtration Rate 51.1 mL/min (>60) Glucose Level 143 MG/DL (74-106) Calcium Level 9.0 MG/DL (8.5-10.1) Phosphorus Level 3.1 MG/DL (2.5-4.9) Magnesium Level 1.8 MG/DL (1.8-2.4) Total Bilirubin 0.7 MG/DL (0.2-1.0) Aspartate Amino Transf (AST/SGOT) 35 U/L (15-37) Alanine Aminotransferase (ALT/SGPT) 38 U/L (12-78) Alkaline Phosphatase 78 U/L (46-116) C-Reactive Protein, Quantitative 1.5 mg/dL (0.00-0.90) Total Protein 6.0 G/DL (6.4-8.2) Albumin 2.7 G/DL (3.4-5.0) Globulin 3.3 g/dL Albumin/Globulin Ratio 0.8 (1.0-2.7) Height (Feet): 6 Height (Inches): 0.00 Weight (Pounds): 210 Objective General: no apparent distress, GCS 15, non-toxic, lethargic HEENT: normal ENT inspection Neck: normal inspection Respiratory: chest non-tender, lungs clear, normal breath sounds, speaking full sentences Cardiovascular: tachycardia Gastrointestinal: normal bowel sounds, non tender Genitourinary: no CVA tenderness Musculoskeletal: normal inspection Neurologic: other - AMS Psychiatric: other - AMS Skin: other - see nrusing notes Lymphatic: normal inspection Lewis Bourne MD Sep 15, 2019 11:36
--- NOTE | 2019-09-15 11:58 | Cardiac Electrophysiology PN ---
Assessment/Plan Assessment/Plan 1. Hypertension. On Lopressor 25 bid and p.r.n. hydralazine 2. NSTEMI with elevated troponin and Inferolateral ischemia. Denies any chest pain. EF 55%. Has first-degree AV block. On Aspirin and Lopressor. Troponin 0.8 Consider cardiac cath after bacteremia resolves 3. Shortness of breath, ruled out for COVID and started on Abx 4. Elevated D-dimer. Lower extremity duplex negative for DVT 5. Renal failure with Cr 1.9 6. Bacteremia and UTI on Cephalexin. May need MARILIN if persistent bacteremia DW RN Subjective Subjective Was in SR with first degree AVB. Now off tele. DC planning in progress Objective Last 24 Hour Vital Signs Date Time Temp Pulse Resp B/P (MAP) Pulse Ox O2 Delivery O2 Flow Rate FiO2 09/15/19 09:00 Room Air 09/15/19 08:57 58 119/72 09/15/19 08:00 97.7 58 18 119/72 (88) 95 09/15/19 04:00 97.0 56 18 150/88 (108) 97 09/15/19 00:00 98.1 58 18 143/76 (98) 97 09/14/19 21:00 Room Air 09/14/19 20:34 61 134/74 09/14/19 20:00 98.1 61 18 134/74 (94) 96 09/14/19 16:00 97.9 58 18 136/65 (88) 96 09/14/19 13:34 128/76 09/14/19 12:00 97.7 61 17 128/76 (93) 95 Intake and Output 09/14/19 09/15/19 19:00 07:00 Intake Total 5000 ml 260 ml Output Total 300 ml 1000 ml Balance 4700 ml -740 ml Intake Oral 5000 ml Other 260 ml Output Urine Total 300 ml 1000 ml Objective NECK: No JVD. LUNGS: Clear. CARDIOVASCULAR: Regular S1 and S2 with no gallop or murmur. ABDOMEN: Soft. EXTREMITIES: No pitting edema. Rcik Torres MD Sep 15, 2019 11:58
[2019-09-15 12:00] VITALS: BP 135/57
--- NOTE | 2019-09-15 12:52 | Nephrology Progress Note ---
Assessment/Plan Problem List: (1) Renal failure (ARF), acute on chronic (2) Dehydration (3) Sepsis (4) UTI (urinary tract infection) Assessment This 74-year-old male presented to emergency room with fever, leukocytosis, evidence of UTI/sepsis He has leukocytosis and increased d-dimer, suspected 2019 novel coronavirus infection, however the first test is negative Renal impression: Acute on chronic kidney disease Superimposed dehydration Underlying diabetic nephropathy Diabetes mellitus [id number] Plan No labs drawn today. Stable from renal standpoint of view Last serum creatinine 1.6 today Other parameters and electrolytes stable Previously: Add Nitropaste for elevated troponin Add fish oil Slow IV hydration Monitor renal parameters Patient has a Carmen catheter Avoid nephrotoxic's On diabetic friendly diet now Keep the blood pressure and blood sugar in check Per orders Discussed with RN Subjective ROS Limited/Unobtainable: No Constitutional: Reports: malaise Objective Objective Last 24 Hour Vital Signs Date Time Temp Pulse Resp B/P (MAP) Pulse Ox O2 Delivery O2 Flow Rate FiO2 09/15/19 12:00 96.8 61 20 135/57 (83) 98 09/15/19 09:00 Room Air 09/15/19 08:57 58 119/72 09/15/19 08:00 97.7 58 18 119/72 (88) 95 09/15/19 04:00 97.0 56 18 150/88 (108) 97 09/15/19 00:00 98.1 58 18 143/76 (98) 97 09/14/19 21:00 Room Air 09/14/19 20:34 61 134/74 09/14/19 20:00 98.1 61 18 134/74 (94) 96 09/14/19 16:00 97.9 58 18 136/65 (88) 96 09/14/19 13:34 128/76 Intake and Output 09/14/19 09/15/19 19:00 07:00 Intake Total 5000 ml 260 ml Output Total 300 ml 1000 ml Balance 4700 ml -740 ml Intake Oral 5000 ml Other 260 ml Output Urine Total 300 ml 1000 ml Current Medications Medications (Trade) Dose Ordered Sig/Karyna Route PRN Reason Start Time Stop Time Status Last Admin Dose Admin Acetaminophen (Tylenol) 500 mg Q4H PRN ORAL Mild Pain (Pain Scale 1-3) 09/14/19 12:00 10/09/19 11:59 09/15/19 08:56 Aspirin (ASA) 81 mg DAILY ORAL 09/15/19 09:00 10/24/19 10:29 09/15/19 08:56 Atorvastatin Calcium (Lipitor) 20 mg BEDTIME ORAL 09/14/19 21:00 12/09/19 20:59 09/14/19 20:35 Bisacodyl (Dulcolax) 10 mg QHS ORAL 09/14/19 21:00 12/09/19 20:59 09/14/19 20:35 Dextrose (Dextrose 50%) 25 ml Q30M PRN IV Hypoglycemia 09/14/19 11:30 12/08/19 17:29 Dextrose (Dextrose 50%) 50 ml Q30M PRN IV Hypoglycemia 09/14/19 11:30 12/08/19 17:29 Docusate Sodium (Colace) 100 mg THREE TIMES A DAY ORAL 09/14/19 13:00 10/09/19 12:59 09/15/19 08:56 Enoxaparin Sodium (Lovenox) 40 mg DAILY SUBQ 09/15/19 09:00 12/12/19 08:59 09/15/19 08:57 Fish Oil (Fish Oil) 1,000 mg BID ORAL 09/14/19 18:00 10/10/19 17:59 09/15/19 08:56 Hydralazine HCl (Apresoline) 25 mg Q4H PRN ORAL BP over 160 systolic 09/14/19 12:00 12/08/19 11:59 Insulin Aspart (NovoLOG) BEFORE MEALS AND HS SUBQ 09/14/19 11:30 12/08/19 20:59 09/14/19 12:20 Magnesium Hydroxide (Mom) 30 ml Q4H PRN ORAL Constipation 09/14/19 10:20 10/10/19 10:19 Metoprolol Tartrate (Lopressor) 25 mg Q12HR ORAL 09/14/19 21:00 12/09/19 20:59 09/14/19 20:34 Nateglinide (Starlix) 60 mg TIAC ORAL 09/14/19 11:30 10/11/19 06:29 09/15/19 11:46 Nitroglycerin (Ntg) 1 patch Q24H TDERMAL 09/14/19 13:30 10/10/19 13:29 09/14/19 13:34 Pantoprazole (Protonix) 40 mg EVERY 12 HOURS ORAL 09/14/19 21:00 10/09/19 20:59 09/15/19 08:56 Sennosides (Senokot) 8.6 mg DAILY ORAL 09/15/19 09:00 10/11/19 08:59 09/15/19 08:56 Sitagliptin Phosphate (Januvia) 50 mg ACBREAKFAST ORAL 09/15/19 06:30 10/11/19 06:29 09/15/19 05:47 Height (Feet): 6 Height (Inches): 0.00 Weight (Pounds): 210 Wild Kraft MD Sep 15, 2019 12:52
[2019-09-15] MEDS: Nitroglycerin Patch 0.4mg TDERMAL SCH (13:30)
[2019-09-15] MEDS ORDERED: ASPIR 8181 MG ORAL (15:47)
[2019-09-15] MEDS ORDERED: ACETAMINOPHEN500 M3 ORAL (15:47)
[2019-09-15] MEDS ORDERED: COLACE100 MG ORAL (15:48)
[2019-09-15] MEDS ORDERED: FISH OIL 1,0001 EAC4 ORAL (15:48)
[2019-09-15] MEDS ORDERED: METOPROLOL TART25 MG ORAL (15:48)
[2019-09-15] MEDS ORDERED: SENNA8.6 M2 PO (15:49)
[2019-09-15] MEDS ORDERED: PROTONIX40 MG ORAL (15:49)
[2019-09-15] MEDS ORDERED: BISACODYL5 MG ORAL (15:50)
[2019-09-15] MEDS ORDERED: ATORVASTATIN CA20 MG ORAL (15:50)
[2019-09-15] MEDS ORDERED: STARLIX60 MG ORAL (15:50)
[2019-09-15] MEDS ORDERED: NOVOLOG100 UNITS1 SUBQ (15:51)
[2019-09-15] MEDS ORDERED: NITRO-DUR1 EAC1 TD (15:52)
[2019-09-15] MEDS ORDERED: D5W 50ML50 M1 IV (15:53)
[2019-09-15 15:55] VITALS: BP 146/78
[2019-09-15 20:00] VITALS: BP 118/72
--- NOTE | 2019-09-15 21:11 | General Progress Note ---
Assessment/Plan Problem List: (1) Sepsis ICD Codes: A41.9 - Sepsis, unspecified organism SNOMED: 99279430 Qualifiers: Qualified Codes: A41.9 - Sepsis, unspecified organism (2) Renal failure ICD Codes: N19 - Unspecified kidney failure SNOMED: 10352437 Qualifiers: Qualified Codes: N17.9 - Acute kidney failure, unspecified (3) Dehydration ICD Codes: E86.0 - Dehydration SNOMED: 67475473 (4) UTI (urinary tract infection) ICD Codes: N39.0 - Urinary tract infection, site not specified SNOMED: 43990165 Qualifiers: Qualified Codes: N39.0 - Urinary tract infection, site not specified (5) Fever ICD Codes: R50.9 - Fever, unspecified SNOMED: 905387052 Qualifiers: Qualified Codes: R50.9 - Fever, unspecified (6) Suspected 2019 novel coronavirus infection ICD Codes: Z20.828 - Contact with and (suspected) exposure to other viral communicable diseases SNOMED: 907920419 (7) Renal failure (ARF), acute on chronic ICD Codes: N17.9 - Acute kidney failure, unspecified; N18.9 - Chronic kidney disease, unspecified SNOMED: 596326451 Status: progressing Assessment/Plan: h/o covid positive pna weak dc home with caregiver uti resolved positive blood cx afebrile Subjective ROS Limited/Unobtainable: Yes Allergies: Coded Allergies: No Known Allergies (Unverified , 09/08/19) Objective Last 24 Hour Vital Signs Date Time Temp Pulse Resp B/P (MAP) Pulse Ox O2 Delivery O2 Flow Rate FiO2 09/15/19 15:55 97.5 63 20 146/78 (100) 98 09/15/19 13:30 135/57 09/15/19 12:00 96.8 61 20 135/57 (83) 98 09/15/19 09:00 Room Air 09/15/19 08:57 58 119/72 09/15/19 08:00 97.7 58 18 119/72 (88) 95 09/15/19 04:00 97.0 56 18 150/88 (108) 97 09/15/19 00:00 98.1 58 18 143/76 (98) 97 Intake and Output 09/14/19 09/15/19 19:00 07:00 Intake Total 5000 ml 260 ml Output Total 300 ml 1000 ml Balance 4700 ml -740 ml Intake Oral 5000 ml Other 260 ml Output Urine Total 300 ml 1000 ml Laboratory Tests 09/15/19 11:33: POC Whole Blood Glucose 129H 09/15/19 16:14: POC Whole Blood Glucose 117H 09/15/19 20:15: POC Whole Blood Glucose 134H Height (Feet): 6 Height (Inches): 0.00 Weight (Pounds): 210 Julia Warner MD Sep 15, 2019 21:11
[2019-09-15] MEDS: Bisacodyl EC 5mg tab ORAL SCH (21:40)
[2019-09-15] MEDS: Atorvastatin 20mg tab ORAL SCH (21:40)
[2019-09-16] VITALS: BP 136/69
[2019-09-16 04:00] VITALS: BP 132/70
[2019-09-16] MEDS: NovoLOG Insulin Flexpen SUBQ SCH ×2 (06:30→11:42)
[2019-09-16] MEDS: sitaGLIPtin 50mg tab ORAL SCH (06:30)
[2019-09-16] MEDS: Nateglinide 60mg tab ORAL SCH ×2 (06:30→11:41)
[2019-09-16 08:00] VITALS: BP 118/63
[2019-09-16] MEDS: Aspirin Baby 81mg ORAL SCH (08:45)
[2019-09-16] MEDS: Docusate 100mg cap ORAL SCH ×2 (08:45→13:17)
[2019-09-16] MEDS: Sennosides 8.6mg tab ORAL SCH (08:45)
[2019-09-16] MEDS: Enoxaparin 40mg Inj SUBQ SCH (08:46)
--- NOTE | 2019-09-16 11:42 | Hematology/Onc Progress Note ---
Assessment/Plan Assessment/Plan Assessment and Recs # Elevated didmer in the setting of ALOC, sepsis, r./o covid19 --> r/o underlying infection, imaging reviewed --> has been started initially on heparin gtt, now on lovenox sq --> duplex lower extremity ordered, wilian Rn-->neg --> pulm eval prn with Dr. Duran # Leukocytosis r/o underlying infection --> may also be elevated due to been given steriods # Dehydration --> goal of euvolemia --> ivfs started # UTI, Urine positive for UTI -> abx as per id # BUN/creatinine elevated. Lactic 2.5. --> per renal # Hypernatremia with a Na 147 --> ivfs started # Dvt ppx lovenox sq Appreciate consultation and wilian MOFFETT Subjective Constitutional: Denies: no symptoms, chills, fever, malaise, weakness, other HEENT: Denies: no symptoms, eye pain, blurred vision, tearing, double vision, ear pain, ear discharge, nose pain, nose congestion, throat pain, throat swelling, mouth pain, mouth swelling, other Cardiovascular: Denies: no symptoms, chest pain, edema, irregular heart rate, lightheadedness, palpitations, syncope, other Respiratory: Denies: no symptoms, cough, shortness of breath, SOB with excertion, SOB at rest, sputum, wheezing, other Gastrointestinal/Abdominal: Denies: no symptoms, abdomen distended, abdominal pain, black stools, tarry stools, blood in stool, constipated, diarrhea, difficulty swallowing, nausea, poor appetite, poor fluid intake, rectal bleeding , vomiting, other Genitourinary: Denies: no symptoms, burning, discharge, frequency, flank pain, hematuria, incontinence, pain, urgency, other Neurologic/Psychiatric: Denies: no symptoms, anxiety, depressed, emotional problems, headache, numbness, paresthesia, pre-existing deficit, seizure, tingling, tremors, weakness, other Endocrine: Denies: no symptoms, excessive sweating, flushing, intolerance to cold, intolerance to heat, increased hunger, increased thirst, increased urine, unexplained weight gain, unexplained weight loss, other Allergies: Coded Allergies: No Known Allergies (Unverified , 09/08/19) Subjective 7/16 meds reviewed, no bleeding, labs noted, altered, on ctx abx 09/10 no night sweats, meds reviewed, no bleeding, dw rn, duplex ordered 09/12 awake, aler, no bleeding, meds reviewed, wilian rn 09/13 meds reviewed, no night sweats, wilian rn, no bleeding 09/14 labs reviewed, meds noted, no bleeding, no f/c 09/15 meds noted, no bleeding, cbc has been ordered Objective Objective Current Medications Medications (Trade) Dose Ordered Sig/Karyna Route PRN Reason Start Time Stop Time Status Last Admin Dose Admin Acetaminophen (Tylenol) 500 mg Q4H PRN ORAL Mild Pain (Pain Scale 1-3) 09/14/19 12:00 10/09/19 11:59 09/15/19 08:56 Aspirin (ASA) 81 mg DAILY ORAL 09/15/19 09:00 10/24/19 10:29 09/16/19 08:45 Atorvastatin Calcium (Lipitor) 20 mg BEDTIME ORAL 09/14/19 21:00 12/09/19 20:59 09/15/19 21:40 Bisacodyl (Dulcolax) 10 mg QHS ORAL 09/14/19 21:00 12/09/19 20:59 09/15/19 21:40 Dextrose (Dextrose 50%) 25 ml Q30M PRN IV Hypoglycemia 09/14/19 11:30 12/08/19 17:29 Dextrose (Dextrose 50%) 50 ml Q30M PRN IV Hypoglycemia 09/14/19 11:30 12/08/19 17:29 Docusate Sodium (Colace) 100 mg THREE TIMES A DAY ORAL 09/14/19 13:00 10/09/19 12:59 09/16/19 08:45 Enoxaparin Sodium (Lovenox) 40 mg DAILY SUBQ 09/15/19 09:00 12/12/19 08:59 09/16/19 08:46 Fish Oil (Fish Oil) 1,000 mg BID ORAL 09/14/19 18:00 10/10/19 17:59 09/16/19 08:45 Hydralazine HCl (Apresoline) 25 mg Q4H PRN ORAL BP over 160 systolic 09/14/19 12:00 12/08/19 11:59 Insulin Aspart (NovoLOG) BEFORE MEALS AND HS SUBQ 09/14/19 11:30 12/08/19 20:59 09/14/19 12:20 Magnesium Hydroxide (Mom) 30 ml Q4H PRN ORAL Constipation 09/14/19 10:20 10/10/19 10:19 Metoprolol Tartrate (Lopressor) 25 mg Q12HR ORAL 09/14/19 21:00 12/09/19 20:59 09/16/19 08:45 Nateglinide (Starlix) 60 mg TIAC ORAL 09/14/19 11:30 10/11/19 06:29 09/16/19 06:30 Nitroglycerin (Ntg) 1 patch Q24H TDERMAL 09/14/19 13:30 10/10/19 13:29 09/14/19 13:34 Pantoprazole (Protonix) 40 mg EVERY 12 HOURS ORAL 09/14/19 21:00 10/09/19 20:59 09/16/19 08:45 Sennosides (Senokot) 8.6 mg DAILY ORAL 09/15/19 09:00 10/11/19 08:59 09/16/19 08:45 Sitagliptin Phosphate (Januvia) 50 mg ACBREAKFAST ORAL 09/15/19 06:30 10/11/19 06:29 09/16/19 06:30 Last 24 Hour Vital Signs Date Time Temp Pulse Resp B/P (MAP) Pulse Ox O2 Delivery O2 Flow Rate FiO2 09/16/19 09:00 Room Air 09/16/19 08:45 66 118/63 09/16/19 08:00 98.1 66 18 118/63 (81) 95 09/16/19 04:00 97.6 62 20 132/70 (90) 97 09/16/19 00:00 97.8 60 20 136/69 (91) 96 09/15/19 21:39 69 118/72 09/15/19 21:00 Room Air 09/15/19 20:00 97.9 69 20 118/72 (87) 96 09/15/19 15:55 97.5 63 20 146/78 (100) 98 09/15/19 13:30 135/57 09/15/19 12:00 96.8 61 20 135/57 (83) 98 09/15/19 09:00 Room Air 09/15/19 08:57 58 119/72 09/15/19 08:00 97.7 58 18 119/72 (88) 95 09/15/19 04:00 97.0 56 18 150/88 (108) 97 09/15/19 00:00 98.1 58 18 143/76 (98) 97 09/14/19 21:00 Room Air 09/14/19 20:34 61 134/74 09/14/19 20:00 98.1 61 18 134/74 (94) 96 09/14/19 16:00 97.9 58 18 136/65 (88) 96 09/14/19 13:34 128/76 09/14/19 12:00 97.7 61 17 128/76 (93) 95 Intake and Output 09/15/19 09/16/19 18:59 06:59 Intake Total 840 ml 120 ml Output Total 1400 ml 0 ml Balance -560 ml 120 ml Intake Oral 840 ml 120 ml Output Urine Total 1400 ml 0 ml # Bowel Movements 2 Labs Test 09/13/19 12:00 09/13/19 16:28 09/13/19 20:15 09/14/19 01:45 POC Whole Blood Glucose 126 MG/DL (74-106) 124 MG/DL (74-106) Urine Eosinophils None seen (NONE SEEN) Test 09/14/19 05:26 09/14/19 06:30 09/14/19 12:16 09/14/19 16:36 POC Whole Blood Glucose 130 MG/DL (74-106) 158 MG/DL (74-106) 107 MG/DL (74-106) White Blood Count 10.9 K/UL (4.8-10.8) Red Blood Count 3.96 M/UL (4.70-6.10) Hemoglobin 13.1 G/DL (14.2-18.0) Hematocrit 39.0 % (42.0-52.0) Mean Corpuscular Volume 99 FL (80-99) Mean Corpuscular Hemoglobin 33.1 PG (27.0-31.0) Mean Corpuscular Hemoglobin Concent 33.6 G/DL (32.0-36.0) Red Cell Distribution Width 10.8 % (11.6-14.8) Platelet Count 212 K/UL (150-450) Mean Platelet Volume 6.8 FL (6.5-10.1) Neutrophils (%) (Auto) 71.7 % (45.0-75.0) Lymphocytes (%) (Auto) 15.8 % (20.0-45.0) Monocytes (%) (Auto) 6.2 % (1.0-10.0) Eosinophils (%) (Auto) 5.3 % (0.0-3.0) Basophils (%) (Auto) 0.9 % (0.0-2.0) Sodium Level 138 MMOL/L (136-145) Potassium Level 3.7 MMOL/L (3.5-5.1) Chloride Level 105 MMOL/L (98-107) Carbon Dioxide Level 24 MMOL/L (21-32) Anion Gap 9 mmol/L (5-15) Blood Urea Nitrogen 17 mg/dL (7-18) Creatinine 1.6 MG/DL (0.55-1.30) Estimat Glomerular Filtration Rate 51.1 mL/min (>60) Glucose Level 143 MG/DL (74-106) Calcium Level 9.0 MG/DL (8.5-10.1) Phosphorus Level 3.1 MG/DL (2.5-4.9) Magnesium Level 1.8 MG/DL (1.8-2.4) Total Bilirubin 0.7 MG/DL (0.2-1.0) Aspartate Amino Transf (AST/SGOT) 35 U/L (15-37) Alanine Aminotransferase (ALT/SGPT) 38 U/L (12-78) Alkaline Phosphatase 78 U/L (46-116) C-Reactive Protein, Quantitative 1.5 mg/dL (0.00-0.90) Total Protein 6.0 G/DL (6.4-8.2) Albumin 2.7 G/DL (3.4-5.0) Globulin 3.3 g/dL Albumin/Globulin Ratio 0.8 (1.0-2.7) Test 09/15/19 11:33 09/15/19 16:14 09/15/19 20:15 09/16/19 06:26 POC Whole Blood Glucose 129 MG/DL (74-106) 117 MG/DL (74-106) 134 MG/DL (74-106) 120 MG/DL (74-106) Height (Feet): 6 Height (Inches): 0.00 Weight (Pounds): 222 Objective General: no apparent distress, GCS 15, non-toxic, lethargic HEENT: normal ENT inspection Neck: normal inspection Respiratory: chest non-tender, lungs clear, normal breath sounds, speaking full sentences Cardiovascular: tachycardia Gastrointestinal: normal bowel sounds, non tender Genitourinary: no CVA tenderness Musculoskeletal: normal inspection Neurologic: other - AMS Psychiatric: other - AMS Skin: other - see nrusing notes Lymphatic: normal inspection Lewis Bourne MD Sep 16, 2019 11:42
[2019-09-16 12:00] VITALS: BP 129/75
--- NOTE | 2019-09-16 12:17 | Cardiac Electrophysiology PN ---
Assessment/Plan Assessment/Plan 1. Hypertension. On Lopressor 25 bid and p.r.n. hydralazine 2. NSTEMI with elevated troponin and Inferolateral ischemia. Denies any chest pain. EF 55%. Has first-degree AV block. On Aspirin and Lopressor. Troponin 0.8 Consider cardiac cath after bacteremia resolves 3. Shortness of breath, ruled out for COVID and started on Abx 4. Elevated D-dimer. Lower extremity duplex negative for DVT 5. Renal failure with Cr 1.9 6. S/P Bacteremia and UTI DW RN Subjective Subjective Was in SR with first degree AVB when on tele. Objective Last 24 Hour Vital Signs Date Time Temp Pulse Resp B/P (MAP) Pulse Ox O2 Delivery O2 Flow Rate FiO2 09/16/19 09:00 Room Air 09/16/19 08:45 66 118/63 09/16/19 08:00 98.1 66 18 118/63 (81) 95 09/16/19 04:00 97.6 62 20 132/70 (90) 97 09/16/19 00:00 97.8 60 20 136/69 (91) 96 09/15/19 21:39 69 118/72 09/15/19 21:00 Room Air 09/15/19 20:00 97.9 69 20 118/72 (87) 96 09/15/19 15:55 97.5 63 20 146/78 (100) 98 09/15/19 13:30 135/57 Intake and Output 09/15/19 09/16/19 19:00 07:00 Intake Total 840 ml 120 ml Output Total 1400 ml 0 ml Balance -560 ml 120 ml Intake Oral 840 ml 120 ml Output Urine Total 1400 ml 0 ml # Bowel Movements 2 Laboratory Tests Test 09/15/19 16:14 09/15/19 20:15 09/16/19 06:26 POC Whole Blood Glucose 117 MG/DL (74-106) H 134 MG/DL (74-106) H 120 MG/DL (74-106) H Objective NECK: No JVD. LUNGS: Clear. CARDIOVASCULAR: Regular S1 and S2 with no gallop or murmur. ABDOMEN: Soft. EXTREMITIES: No pitting edema. Rick Torres MD Sep 16, 2019 12:17
--- NOTE | 2019-09-16 12:27 | Nephrology Progress Note ---
Assessment/Plan Problem List: (1) Renal failure (ARF), acute on chronic (2) Dehydration (3) Sepsis (4) UTI (urinary tract infection) Assessment This 74-year-old male presented to emergency room with fever, leukocytosis, evidence of UTI/sepsis He has leukocytosis and increased d-dimer, suspected 2019 novel coronavirus infection, however the first test is negative Renal impression: Acute on chronic kidney disease Superimposed dehydration Underlying diabetic nephropathy Diabetes mellitus [id number] Plan No labs drawn today. Stable from renal standpoint of view Last serum creatinine 1.6 today Other parameters and electrolytes stable Previously: Add Nitropaste for elevated troponin Add fish oil Slow IV hydration Monitor renal parameters Patient has a Carmen catheter Avoid nephrotoxic's On diabetic friendly diet now Keep the blood pressure and blood sugar in check Per orders Discussed with RN Subjective ROS Limited/Unobtainable: No Constitutional: Reports: malaise Objective Objective Last 24 Hour Vital Signs Date Time Temp Pulse Resp B/P (MAP) Pulse Ox O2 Delivery O2 Flow Rate FiO2 09/16/19 09:00 Room Air 09/16/19 08:45 66 118/63 09/16/19 08:00 98.1 66 18 118/63 (81) 95 09/16/19 04:00 97.6 62 20 132/70 (90) 97 09/16/19 00:00 97.8 60 20 136/69 (91) 96 09/15/19 21:39 69 118/72 09/15/19 21:00 Room Air 09/15/19 20:00 97.9 69 20 118/72 (87) 96 09/15/19 15:55 97.5 63 20 146/78 (100) 98 09/15/19 13:30 135/57 Intake and Output 09/15/19 09/16/19 18:59 06:59 Intake Total 840 ml 120 ml Output Total 1400 ml 0 ml Balance -560 ml 120 ml Intake Oral 840 ml 120 ml Output Urine Total 1400 ml 0 ml # Bowel Movements 2 No can panel drawn today Laboratory Tests 09/15/19 16:14: POC Whole Blood Glucose 117H 09/15/19 20:15: POC Whole Blood Glucose 134H 09/16/19 06:26: POC Whole Blood Glucose 120H Height (Feet): 6 Height (Inches): 0.00 Weight (Pounds): 222 General Appearance: no apparent distress Cardiovascular: normal rate Respiratory/Chest: decreased breath sounds Abdomen: soft Objective No change Wild Kraft MD Sep 16, 2019 12:27
--- NOTE | 2019-09-16 12:27 | General Progress Note ---
Assessment/Plan Problem List: (1) Diabetes mellitus out of control ICD Codes: E11.65 - Type 2 diabetes mellitus with hyperglycemia SNOMED: 54588364, 589332434 (2) Suspected 2019 novel coronavirus infection ICD Codes: Z20.828 - Contact with and (suspected) exposure to other viral communicable diseases SNOMED: 092581930 (3) Sepsis ICD Codes: A41.9 - Sepsis, unspecified organism SNOMED: 56329348 Qualifiers: Qualified Codes: A41.9 - Sepsis, unspecified organism (4) Dehydration ICD Codes: E86.0 - Dehydration SNOMED: 43536825 (5) Renal failure ICD Codes: N19 - Unspecified kidney failure SNOMED: 48995645 Qualifiers: Qualified Codes: N17.9 - Acute kidney failure, unspecified (6) UTI (urinary tract infection) ICD Codes: N39.0 - Urinary tract infection, site not specified SNOMED: 17777565 Qualifiers: Qualified Codes: N39.0 - Urinary tract infection, site not specified (7) Altered level of consciousness ICD Codes: R40.4 - Transient alteration of awareness SNOMED: 2640375 (8) Renal failure (ARF), acute on chronic ICD Codes: N17.9 - Acute kidney failure, unspecified; N18.9 - Chronic kidney disease, unspecified SNOMED: 187732448 (9) Fever ICD Codes: R50.9 - Fever, unspecified SNOMED: 550563095 Qualifiers: Qualified Codes: R50.9 - Fever, unspecified Status: progressing Assessment/Plan: continue Januvia 50 mg daily continue Starlix 60 mg ac tid continue Novolog sliding scale ac / hs hypoglycemic protocol in order no need for insulin after discharge Subjective ROS Limited/Unobtainable: Yes Allergies: Coded Allergies: No Known Allergies (Unverified , 09/08/19) Subjective events noted glucose values are stable without hypoglycemia Item Value Date Time Bedside Blood Glucose 144 mg/dl H 09/16/19 1142 Bedside Blood Glucose 120 mg/dl 09/16/19 0630 Bedside Blood Glucose 134 mg/dl H 09/15/19 2100 Bedside Blood Glucose 117 mg/dl 09/15/19 1630 Bedside Blood Glucose 129 mg/dl H 09/15/19 1140 Objective Last 24 Hour Vital Signs Date Time Temp Pulse Resp B/P (MAP) Pulse Ox O2 Delivery O2 Flow Rate FiO2 09/16/19 09:00 Room Air 09/16/19 08:45 66 118/63 09/16/19 08:00 98.1 66 18 118/63 (81) 95 09/16/19 04:00 97.6 62 20 132/70 (90) 97 09/16/19 00:00 97.8 60 20 136/69 (91) 96 09/15/19 21:39 69 118/72 09/15/19 21:00 Room Air 09/15/19 20:00 97.9 69 20 118/72 (87) 96 09/15/19 15:55 97.5 63 20 146/78 (100) 98 09/15/19 13:30 135/57 Intake and Output 09/15/19 09/16/19 19:00 07:00 Intake Total 840 ml 120 ml Output Total 1400 ml 0 ml Balance -560 ml 120 ml Intake Oral 840 ml 120 ml Output Urine Total 1400 ml 0 ml # Bowel Movements 2 Laboratory Tests 09/15/19 16:14: POC Whole Blood Glucose 117H 09/15/19 20:15: POC Whole Blood Glucose 134H 09/16/19 06:26: POC Whole Blood Glucose 120H Height (Feet): 6 Height (Inches): 0.00 Weight (Pounds): 222 General Appearance: no apparent distress Neck: normal alignment Cardiovascular: normal rate Respiratory/Chest: lungs clear Abdomen: normal bowel sounds Objective Current Medications Medications (Trade) Dose Ordered Sig/Karyna Route PRN Reason Start Time Stop Time Status Last Admin Dose Admin Acetaminophen (Tylenol) 500 mg Q4H PRN ORAL Mild Pain (Pain Scale 1-3) 09/14/19 12:00 10/09/19 11:59 09/15/19 08:56 Aspirin (ASA) 81 mg DAILY ORAL 09/15/19 09:00 10/24/19 10:29 09/16/19 08:45 Atorvastatin Calcium (Lipitor) 20 mg BEDTIME ORAL 09/14/19 21:00 12/09/19 20:59 09/15/19 21:40 Bisacodyl (Dulcolax) 10 mg QHS ORAL 09/14/19 21:00 12/09/19 20:59 09/15/19 21:40 Dextrose (Dextrose 50%) 25 ml Q30M PRN IV Hypoglycemia 09/14/19 11:30 12/08/19 17:29 Dextrose (Dextrose 50%) 50 ml Q30M PRN IV Hypoglycemia 09/14/19 11:30 12/08/19 17:29 Docusate Sodium (Colace) 100 mg THREE TIMES A DAY ORAL 09/14/19 13:00 10/09/19 12:59 09/16/19 08:45 Enoxaparin Sodium (Lovenox) 40 mg DAILY SUBQ 09/15/19 09:00 12/12/19 08:59 09/16/19 08:46 Fish Oil (Fish Oil) 1,000 mg BID ORAL 09/14/19 18:00 10/10/19 17:59 09/16/19 08:45 Hydralazine HCl (Apresoline) 25 mg Q4H PRN ORAL BP over 160 systolic 09/14/19 12:00 12/08/19 11:59 Insulin Aspart (NovoLOG) BEFORE MEALS AND HS SUBQ 09/14/19 11:30 12/08/19 20:59 09/16/19 11:42 Magnesium Hydroxide (Mom) 30 ml Q4H PRN ORAL Constipation 09/14/19 10:20 10/10/19 10:19 Metoprolol Tartrate (Lopressor) 25 mg Q12HR ORAL 09/14/19 21:00 12/09/19 20:59 09/16/19 08:45 Nateglinide (Starlix) 60 mg TIAC ORAL 09/14/19 11:30 10/11/19 06:29 09/16/19 11:41 Nitroglycerin (Ntg) 1 patch Q24H TDERMAL 09/14/19 13:30 10/10/19 13:29 09/14/19 13:34 Pantoprazole (Protonix) 40 mg EVERY 12 HOURS ORAL 09/14/19 21:00 10/09/19 20:59 09/16/19 08:45 Sennosides (Senokot) 8.6 mg DAILY ORAL 09/15/19 09:00 10/11/19 08:59 09/16/19 08:45 Sitagliptin Phosphate (Januvia) 50 mg ACBREAKFAST ORAL 09/15/19 06:30 10/11/19 06:29 09/16/19 06:30 Werner Barth MD Sep 16, 2019 12:27
--- NOTE | 2019-09-16 12:46 | Infectious Diseases Prog Note ---
Assessment/Plan Assessment/Plan IMPRESSION: Sepsis resolved UTI with E. coli, treated Positive blood culture likely contamination Negative COVID19 test, Acute renal failure, improving Diabetes with hyperglycemia, Hypertension, history of CVA and left hemiparesis. Cardiac ischemia RECOMMENDATION: Observe off antibiotic Agree weith discharge Subjective ROS Limited/Unobtainable: No Respiratory: Reports: no symptoms Cardiovascular: Reports: no symptoms Gastrointestinal/Abdominal: Reports: no symptoms Genitourinary: Reports: no symptoms Allergies: Coded Allergies: No Known Allergies (Unverified , 09/08/19) Objective Last 24 Hour Vital Signs Date Time Temp Pulse Resp B/P (MAP) Pulse Ox O2 Delivery O2 Flow Rate FiO2 09/16/19 09:00 Room Air 09/16/19 08:45 66 118/63 09/16/19 08:00 98.1 66 18 118/63 (81) 95 09/16/19 04:00 97.6 62 20 132/70 (90) 97 09/16/19 00:00 97.8 60 20 136/69 (91) 96 09/15/19 21:39 69 118/72 09/15/19 21:00 Room Air 09/15/19 20:00 97.9 69 20 118/72 (87) 96 09/15/19 15:55 97.5 63 20 146/78 (100) 98 09/15/19 13:30 135/57 Height (Feet): 6 Height (Inches): 0.00 Weight (Pounds): 222 HEENT: mucous membranes moist Respiratory/Chest: lungs clear Cardiovascular: normal rate Abdomen: soft, non tender Extremities: no edema Neurologic/Psychiatric: alert, responsive Laboratory Tests Test 09/15/19 16:14 09/15/19 20:15 09/16/19 06:26 POC Whole Blood Glucose 117 MG/DL (74-106) H 134 MG/DL (74-106) H 120 MG/DL (74-106) H Current Medications Medications (Trade) Dose Ordered Sig/Karyna Route PRN Reason Start Time Stop Time Status Last Admin Dose Admin Acetaminophen (Tylenol) 500 mg Q4H PRN ORAL Mild Pain (Pain Scale 1-3) 09/14/19 12:00 10/09/19 11:59 09/15/19 08:56 Aspirin (ASA) 81 mg DAILY ORAL 09/15/19 09:00 10/24/19 10:29 09/16/19 08:45 Atorvastatin Calcium (Lipitor) 20 mg BEDTIME ORAL 09/14/19 21:00 12/09/19 20:59 09/15/19 21:40 Bisacodyl (Dulcolax) 10 mg QHS ORAL 09/14/19 21:00 12/09/19 20:59 09/15/19 21:40 Dextrose (Dextrose 50%) 25 ml Q30M PRN IV Hypoglycemia 09/14/19 11:30 12/08/19 17:29 Dextrose (Dextrose 50%) 50 ml Q30M PRN IV Hypoglycemia 09/14/19 11:30 12/08/19 17:29 Docusate Sodium (Colace) 100 mg THREE TIMES A DAY ORAL 09/14/19 13:00 10/09/19 12:59 09/16/19 08:45 Enoxaparin Sodium (Lovenox) 40 mg DAILY SUBQ 09/15/19 09:00 12/12/19 08:59 09/16/19 08:46 Fish Oil (Fish Oil) 1,000 mg BID ORAL 09/14/19 18:00 10/10/19 17:59 09/16/19 08:45 Hydralazine HCl (Apresoline) 25 mg Q4H PRN ORAL BP over 160 systolic 09/14/19 12:00 12/08/19 11:59 Insulin Aspart (NovoLOG) BEFORE MEALS AND HS SUBQ 09/14/19 11:30 12/08/19 20:59 09/16/19 11:42 Magnesium Hydroxide (Mom) 30 ml Q4H PRN ORAL Constipation 09/14/19 10:20 10/10/19 10:19 Metoprolol Tartrate (Lopressor) 25 mg Q12HR ORAL 09/14/19 21:00 12/09/19 20:59 09/16/19 08:45 Nateglinide (Starlix) 60 mg TIAC ORAL 09/14/19 11:30 10/11/19 06:29 09/16/19 11:41 Nitroglycerin (Ntg) 1 patch Q24H TDERMAL 09/14/19 13:30 10/10/19 13:29 09/14/19 13:34 Pantoprazole (Protonix) 40 mg EVERY 12 HOURS ORAL 09/14/19 21:00 10/09/19 20:59 09/16/19 08:45 Sennosides (Senokot) 8.6 mg DAILY ORAL 09/15/19 09:00 10/11/19 08:59 09/16/19 08:45 Sitagliptin Phosphate (Januvia) 50 mg ACBREAKFAST ORAL 09/15/19 06:30 10/11/19 06:29 09/16/19 06:30 Nacho Angulo MD Sep 16, 2019 12:45
[2019-09-16 13:17] VITALS: BP 129/75
[2019-09-16] MEDS: Nitroglycerin Patch 0.4mg TDERMAL SCH (13:17)
--- NOTE | 2019-09-17 17:06 | Discharge Summary ---
Discharge Summary Discharge Summary _ DATE OF ADMISSION: 09/08/2019 DATE OF DISCHARGE: 09/16/2019 DISCHARGED BY: Dr. Warner REASON FOR ADMISSION: 74 years old male with past medical history of hypertension, diabetes mellitus, history of CVA, presented to emergency department due to altered mental status. Patient was also febrile. Patient at that time could not provide any history. Upon evaluation patient was febrile with temperature 101.5 ,tachycardic with heart rate 123. Patient was hypoxic and required a nonrebreathing mask. Laboratory work-up revealed leukocytosis , hemoglobin 15.4, hematocrit 48.1 , platelet count 207. D-dimer above 35, Lactic acid 2.5 ,CRP 0.9 Sodium 147, chloride 109. BUN 52, creatinine 2.8. Glucose 310. Chest x-ray revealed right basilar equivocal mild interstitial prominence. EKG revealed sinus tachycardia , no acute ischemic changes. Pro BNP 482. AST 64, ALT 72 ,total bilirubin 1.7 ,direct bilirubin 0.3. Albumin 4.3. Urinalysis was consistent with UTI. Patient was swabbed for COVID-19. In ED patient received IV fluids, pancultured, s.and started on empiric antibiotic CONSULTANTS: drum maker Dr. Salcedo pulmonary Dr. Duran ID specialist Dr. Nacho Angulo tailor men's ready to wear Dr. Kraft leach runner Dr. Barth volleyball player/oncologist Dr. Bourne HOSPITAL COURSE: Patient admitted to telemetry floor and started on the IV fluids and empiric antibiotics. Patient was kept in isolation. COVID-19 by PCR from 09/07 was negative. Urine culture revealed E. coli. Blood culture revealed Staph epidermidis. Leukocytosis initially trended up . Antibiotic regimen optimized as per ID specialist recommendation. Per ID specialist, blood culture were likely contaminated. Patient completed treatment for urinary tract infection while in the hospital. Leukocytosis resolved , no further fevers. Patient noted to have elevated d-dimer on admission. Venous duplex bilateral lower extremity revealed no evidence of acute DVT. DVT prophylaxis provided. Patient initially was on 100% nonrebreathing mask. As patient clinically improved , patient was able to be weaned off oxygen to room air and prior to discharge pulse oximetry stable on room air. Renal parameters and electrolytes were closely monitored. Electrolytes corrected as needed. Nephrotoxins were avoided. With IV hydration , BUN from 52 down to 17 and creatinine from 3.8 down to 1.6. According to tailor men's ready to wear , patient had acute on chronic renal failure with superimposed dehydration and underlying diabetic nephropathy. Troponin was checked on 08/31/2015 and was elevated 0.187. Troponin the next day 0.071. Patient denied chest pain. Echocardiogram revealed preserved ejection fraction of 55%. According to drum maker patient had NSTEMI with elevated troponin and inferolateral ischemia on EKG. Patient started on antiplatelet therapy with aspirin, beta blockage and statin. Glass Smoother recommended to consider cardiac catheterization when stabilized after sepsis. Blood pressure was managed with beta-levi and hydralazine was on board as needed for blood pressure spikes. Blood sugar was managed as per leach runner recommendation. Hemoglobin A1c 7.5. Blood sugar was managed with Starlix, Januvia, and sliding scale of insulin as needed. Hypoglycemia protocol was in order. Diabetic diet and diabetic teaching provided. Per leach runner , no need for insulin upon discharge. Supportive care provided GI prophylaxis provided Bowel regimen instituted. Patient clinically stabilized and was ready for discharge home. FINAL DIAGNOSES: Sepsis E. coli UTI Suspected COVID-19- ruled out Acute renal failure NSTEMI Renal failure , acute on chronic Superimposed dehydration Underlying diabetic nephropathy Diabetes mellitus with hyperglycemiaout of control Hypertension History of CVA with left hemiparesis DISCHARGE MEDICATIONS: See Medication Reconciliation list. DISCHARGE INSTRUCTIONS: Patient was discharged home . Follow up with primary care provider next week. I have been assigned to dictate discharge summary for this account. I was not involved in the patient's management. Janet Chacko NP Sep 17, 2019 17:06
== END 2019-09-16 15:30 | disposition home or self-care (01) | DRG 871 ==
LOC: EDBD 17:51 → EDBEDREQ 18:45 → EMR 19:49 → 2E 20:10 → EDBEDREQ 20:44 → 2E 09-11 10:23 → 4E 09-14 11:31
DX: A41.9 Sepsis, unspecified organism (principal); I21.4 Non-ST elevation (NSTEMI) myocardial infarction; N17.9 Acute kidney failure, unspecified; E87.0 Hyperosmolality and hypernatremia; N39.0 Urinary tract infection, site not specified; I69.354 Hemiplegia and hemiparesis following cerebral infarction affecting left non-dominant side; E11.22 Type 2 diabetes mellitus with diabetic chronic kidney disease; E11.65 Type 2 diabetes mellitus with hyperglycemia; I12.9 Hypertensive chronic kidney disease with stage 1 through stage 4 chronic kidney disease, or unspecified chronic kidney disease; I44.0 Atrioventricular block, first degree; N18.9 Chronic kidney disease, unspecified; Z86.73 Personal history of transient ischemic attack (TIA), and cerebral infarction without residual deficits; E86.0 Dehydration; B96.20 Unspecified Escherichia coli [E. coli] as the cause of diseases classified elsewhere; Z20.828 Contact with and (suspected) exposure to other viral communicable diseases
CPT/HCPCS: 36415; 71045; 80053; 80061; 81003; 82248; 82550; 82962; 82977; 83036; 83605; 83735; 83880; 83970; 84100; 84300; 84443; 84484; 84550; 85007; 85025; 85379; 85610; 85651; 85730; 86140; 87040; 87086; 87181; 89050; 92610; 93005; 93306; 93970; 96361; 96365; 96366; 96368; 96375; 99291; J1815; J7030